=== PATIENT | male | born 1980 | race Two or more races ===

== ENCOUNTER 2024-10-03 01:32 | Inpatient (IN) | payer OTHER, MEDICAID, SELFPAY ==
[2024-10-03] VITALS (23 sets, daily range): BP systolic 90–236; BP diastolic 34–108; PULSE 90–140; RESP 12–90; TEMP 36.2–41.2; O2SAT 92–97; BMI 73.8
--- NOTE | 2024-10-03 01:56 | XR_ITS ---
Examination: AP chest single view Technique one AP portable upright chest single view Exam date and time: October 03, 2024 0223 hours INDICATIONS: Weakness chills today. FINDINGS: Mild enlargement cardiac contour Moderate vascular congestion. No lobar pneumonia Prominent osteopenia IMPRESSION: Moderate vascular congestion
--- NOTE | 2024-10-03 02:00 | PC.NURSE ---
PT BIB EMS WITH C/O SUDDEN ONSET CHILLS, AND DIZZINESS, AND COLD SWEATS. PT STATES HE HAD SIMILAR SYMPTOMS OCCUR APPROX 5 DAYS AGO BUT THEY WENT AWAY. PT STATES TODAY WHILE WORKING SYMPTOMS RETURNED. PT PRESENTS TO ER SHIVERING STATING I FEEL COLD , PT DENIES ANY RECENT SICKNESS, COUGH OR FLU LIKE SYMPTOMS. PT DENIES ANY ABD PAIN OR CHEST PAIN. PT PRESENTS LABORED BREATHING AND SOB,, BUT STATES THAT IS NORMAL FOR HIM DUE TO HIS WEIGHT AND HAVING DIFFICULTIES GETTING AROUND. PT PRESENTS HYPERTENSIVE, BP 200'S SYSTOLIC. PT STATS HE HAS HX OF HTN AND TAKE METOPROLOL 100 PO DAILY AND STATES HE IN COMPLAINT WITH MEDS. MD MAYNARD MADE AWARE OF PT'S BP. PT PLACED ON CORRESPONDENCE REVIEW CLERK, EKG ORDERED. IV'S STARTED. PT GIVEN CALL LIGHT WITHIN REACH. BED AT LOWEST POSITION. PLAN OF CARE ONGOING.
[2024-10-03 02:10] LABS: Basophils % (Auto) 0 % (0-2.5); Eosinophils # (Auto) 0.1 Thou/mm3 (0.0-0.5); Eosinophils % (Auto) 1 % (0-10); Hemoglobin 12.4 g/dL (13.5-16.0); Immature Granulocytes % (Auto) 1 % (0-0); Immature Granulocytes Auto 0.14 Thou/mm3 (0.00-0.00); Lymphocytes # (Auto) 1.4 Thou/mm3 (1.0-4.8); Lymphocytes % (Auto) 7 % (10-50); Mean Corpuscular HGB Conc 32.6 g/dl (31.0-37.0); Mean Corpuscular Hemoglobin 31.7 pg (25.0-35.0); Mean Corpuscular Volume 97 fL (80-100); Monocytes # (Auto) 0.3 Thou/mm3 (0.0-0.8); Monocytes % (Auto) 1 % (0-12); Neutrophils # (Auto) 17.5 Thou/mm3 (1.8-7.7); Neutrophils % (Auto) 90 % (37-80); Nucleated Red Blood Cell % 0 /100 WBC (0); Platelet Count 283 Thou/mm3 (140-440); Red Blood Count 3.91 Miln/mm3 (4.50-5.90); White Blood Count 19.4 Thou/mm3 (3.8-10.6)
--- NOTE | 2024-10-03 02:15 | PD.EDWEAK ---
ED Weakness RME/HPI General Chief complaint: Weakness Stated complaint: WEAKNESS Time Seen by Provider: 10/03/24 01:42 Arrival date/time: 10/03/24 01:32 RME / HPI RME / HPI Narrative: Dr. Serna's Main ED Evaluation: 44yo male with a history of HTN BIBA from home presents to the ED for a chief complaint of chills. Patient states he had chills, generalized body aches, and 5-6 episodes of diarrhea on Wednesday, reporting his symptoms resolved. Patient states his chills returned tonight and were significant, so he came in for evaluation. Patient denies any fever, N/V/D, chest pain, abdominal pain or any other associated symptoms. No known allergies. Related Data Home Medications ?Medication ?Instructions ?Recorded ?Confirmed furosemide 40 mg tablet 40 mg PO QDAY 10/08/19 11/28/19 lisinopril 20 1 mg PO QDAY 10/08/19 11/28/19 mg-hydrochlorothiazide 25 mg tablet Previous Rx's ?Medication ?Instructions ?Recorded cephalexin 500 mg capsule 500 mg PO QID #40 caps 04/11/24 Allergies Allergy/AdvReac Type Severity Reaction Status Date / Time No Known Allergies Allergy Verified 04/11/24 00:55 Review of Systems Review of Systems Systems Reviewed: All systems reviewed, normal except as documented Past Medical History Past Medical History CARDIAC: Positive Hypertension; Negative Congestive Heart Failure RESPIRATORY: Negative Chronic Obstructive Pulmonary Disease (COPD) GASTROINTESTINAL: Positive Obesity GENITOURINARY: Negative Renal Disease ENDOCRINE: Negative Diabetes Mellitus Type 1 or Diabetes Mellitus Type 2 Social History SMOKING STATUS: Never smoker SUBSTANCE USE: marijuana ED Exam Narrative Physical exam: General: Non-toxic, well appearing, obese, in no acute distress, and appears stated age and well developed and well nourished. Vital signs: Normal. Head: Normocephalic and atraumatic. Eyes: Aproptotic, extraocular movements intact. Nose: Nares without evidence of rhinorrhea. Neck: Supple without menigismus without lympadenopathy. Heart: Tachycardic, regular rhythm without murmur, gallops, or rubs. Lungs: Clear to auscultation without wheezing, rales, or rhonchi. Abdomen: Soft, large, non distended. No tenderness. Normal bowel sounds. Negative Cool sign and no McBurney?s point tenderness. No guarding, rebound, or rovsing. Back: No costovertebral angle tenderness. Gu: Scrotum has no erythema, no crepitus, and is not red to touch. Neurological: Alert and oriented to person, place, time. Extremities: no cyanosis or edema; wearing compression socks, but patient denies any skin changes Skin: no rashes, ecchymosis, or lesions. Erythema under the pannus that is nontender, no fluctuance, no deep tenderness to palpation. Redness to right anterior trejo. Bilateral lower extremity vascular changes. Course Course Course Narrative: CXR is ordered for determining the etiology of chills. Quality Measures Possible source: pulmonary and skin/soft tissue Blood cultures ordered: yes Antibiotic ordered: Yes Pertinent labs: 10/03/24 10/03/24 02:02 03:34 Lactic Acid 3.4 H mMol/L (0.4-2.0) Procalcitonin 0.07 ng/ml (0.0-0.49) sepsis Orders Category Date Time Status COVID-19 Screening Questionnaire NOW Care 10/03/24 04:54 Active Decision to Admit X1 Care 10/03/24 04:54 Completed EKG (ED ONLY) *Do not use* NOW Care 10/03/24 01:49 Completed CXRP [XR chest 1V portable] Stat Exams 10/03/24 01:56 Taken EKG (ED Only) Stat Exams 10/03/24 01:49 Ordered BNP [B-Type Natriuretic Peptide] Stat Lab 10/03/24 02:02 Completed Blood Culture (Lab) Stat Lab 10/03/24 03:34 Received CBC Stat Lab 10/03/24 02:02 Completed CMP [Comprehensive Metabolic Panel] Stat Lab 10/03/24 02:02 Completed LA [Lactate (Lactic Acid)] Stat Lab 10/03/24 03:34 Results Procalcitonin Stat Lab 10/03/24 02:02 Completed Troponin I Stat Lab 10/03/24 02:02 Completed Urinalysis Stat Lab 10/03/24 02:40 Completed Acetaminophen Ivpb [Ofirmev Inj] Med 10/03/24 03:39 Active 1,000 mg in 100 ml IV Q6HR Ketorolac Inj [Toradol Inj] Med 10/03/24 03:41 Discontinued 30 mg IVP X1 ONE Sodium Chloride 0.9% 500 ml [Ns] 500 ml Med 10/03/24 03:50 Discontinued IV 999 mls/hr cefTRIAXone [Rocephin] 2 gm Med 10/03/24 03:46 Discontinued SODIUM CHLORIDE 0.9% (Popper) [Ns 0.9% (P)] 50 ml IV X1 Vital Signs Vital signs: Vital Signs Temperature 98.7 F 10/03/24 01:45 Pulse Rate 101 H 10/03/24 01:45 Respiratory Rate 18 10/03/24 01:45 Blood Pressure 236/78 H 10/03/24 01:45 Pulse Oximetry (%) 96 10/03/24 01:45 Oxygen Delivery Method Room Air 10/03/24 01:45 Weakness MDM Narrative MDM Narrative:: Scribe Attestation: 10/03/24 - Fabiana Shah am scribing for and in the presence of Dr. Serna. 0316: Sepsis alert initiated due to the patient having a rectal temperature of 106.1. Orders made at this time are congruent with ED Adult Sepsis Order List. Re-evaluation is to be completed. Tylenol IV and Toradol ordered. 30mL/kg IVF not ordered due to the patient being on Lasix. This patient would be a very difficult intubation. Will titrate fluids to ensure the patient does not go into CHF to prevent him from being intubated. Rocephin ordered. 0449: Discussed case with the resident physician, attending Dr. Lance from Hospitalist service regarding admission. Discussed patients ED course, exam findings, labs, and radiology results. The Hospitalist agrees to accept the patient for admission. Patient data External records reviewed:: [facility] previous records (Per chart review, patient was seen here on 04/11/24 for bacterial skin infection.) Clinical information provided by:: patient Social determinants that could affect healthcare access:: none Patient has the following chronic illnesses:: HTN How is presenting disease/condition affected by chronic disease/condition?: uneffected by Evaluation data The following diagnostics were reviewed and interpreted by me:: lab results, radiology exam(s) and EKG tracing(s) Lab and/or radiology exams considered but not ordered:: none Interpretation Summary: Bedside Influenza and COVID are negative, WBC count is elevated at 19.4, BUN is 26, Lactic Acid is elevated at 3.4, Troponin is negative, BNP is normal, according to my interpretation. CXR shows right middle lobe infiltrate, mild cardiomegaly, increased vascular markings, cannot r/o right lower lobe infiltrate, impression: right middle lobe pneumonia, according to my interpretation. EKG done at 0151, sinus tachycardia, rate of 103, 1st degree AV block, poor baseline, QTc: 363, according to my interpretation. Medications / Prescriptions Medications or Prescriptions considered but not ordered:: none Medication administrations:: Medication Administration History Acetaminophen (Ofirmev Inj) 1,000 mg in 100 mls @ 250 mls/hr IV Q6HR RAD Stop: 10/03/24 18:23 Last Infusion: 10/03/24 04:46 Dose: Infused Documented By: Admin: 10/03/24 04:09 Dose: 250 mls/hr Documented By: LUISA Discontinued Medications Ceftriaxone Sodium 2 gm/ (Sodium Chloride) 50 mls @ 100 mls/hr IV X1 ONE Stop: 10/03/24 04:15 Last Infusion: 10/03/24 04:47 Dose: Infused Documented By: Admin: 10/03/24 04:10 Dose: 100 mls/hr Documented By: LUISA Sodium Chloride (Ns) 500 mls @ 999 mls/hr IV .Q31M ONE Stop: 10/03/24 04:20 Last Infusion: 10/03/24 05:10 Dose: Infused Documented By: Admin: 10/03/24 04:17 Dose: 999 mls/hr Documented By: LUISA Ketorolac Tromethamine (Ketorolac Inj 30 Mg/Ml Vial) 30 mg IVP X1 ONE Stop: 10/03/24 03:42 Last Admin: 10/03/24 04:10 Dose: 30 mg Documented By: LUISA see above Consultations Consultation(s) initiated? (list below): Yes Diagnosis Weakness Differential Diagnosis: sepsis and other (pneumonia, cellulitis, abdominal wall cellulitis, extremity cellulitis, UTI, bacteremia) Most likely diagnosis given after review of the tests above:: see clinical impression below Admission Indicated Admission indicated?: indicated Admission Request Was there a request for admission?: Yes Admission Attestation Admission request attestation: Discussed case with [] from Hospitalist service regarding admission. Discussed patients ED course, exam findings, labs, and radiology results. The Hospitalist [agrees,declines] to accept the patient for admission. Disposition Plan Disposition Plan: Admit Critical Care Time Critical Care Time Critical Care Time: Yes Total Critical Care Time (min.): 45 Attestation: The high probability of sudden, clinically significant deterioration in the patient?s condition required the highest level of my preparedness to intervene urgently. The services I provided to this patient were to treat and/or prevent clinically significant deterioration. Services included the following: chart data review, reviewing nursing notes and/or old charts, documentation time, labor relations consultant collaboration regarding findings and treatment options, medication orders and management, direct patient care, vital sign assessments and ordering, interpreting and reviewing diagnostic studies and lab tests. Aggregate critical care time includes only time during which I was engaged in work directly related to the patient?s care, as described above, whether at bedside or elsewhere in the Emergency Department. It did not include time spent performing other reported procedures or the services of residents, students, nurses or physician assistants. Discharge Plan Plan Patient Disposition: Admit Acute Care w/in Hospital Disposition Comment: Admitted to Dr. Lance Patient condition on transfer: Stable Prescriptions/Referrals Prescriptions/Med Rec: No Action furosemide 40 mg tablet 40 mg PO QDAY lisinopril-hydrochlorothiazide 20-25 mg tablet 1 mg PO QDAY cephalexin 500 mg capsule 500 mg PO QID Qty: 40 0RF Referrals: Júnior Hudson PA-C [Primary Care Provider] - In 1 week Problem List Clinical Impression: Sepsis, Cellulitis, Community acquired pneumonia Patient/Caregiver Discharge Instructions Print Language: Macedonian Stand Alone Forms: Sarai Award Info., Patient Portal Info Letter
[2024-10-03 02:30] LABS: Alanine Aminotransferase 39 U/L (10-49); Albumin, Serum 4.3 gm/dL (3.5-5.0); Albumin/Globulin Ratio 1.2 (1.2-2.2); Alkaline Phosphatase 70 U/L (46-116); Anion Gap 6 (7-16); Aspartate Amino Transferase 25 U/L (0-34); BUN/Creatinine Ratio 22 Ratio (12-20); Bilirubin,Total 0.5 mg/dL (0.3-1.2); Blood Urea Nitrogen 26 mg/dL (9-23); Calcium 9.6 mg/dL (8.3-10.6); Calcium (Corrected) 9.6 mg/dL (8.5-10.1); Chloride 104 mMol/L (98-107); Creatinine (Component) 1.2 mg/dL (0.6-1.3); Estimated Creatinine Clearance 168.9 mL/min (>60); Globulin 3.6 gm/dL (2.3-3.5); Glucose 106 mg/dL (74-106); Osmolality,Calculated 284 (275-295); Potassium 4.7 mMol/L (3.4-5.1); Sodium 140 mMol/L (136-145); Total Protein 7.9 gm/dL (5.7-8.2); eGFR > 60 See Note
[2024-10-03 02:49] LABS: Collection Type, Urine Voided
[2024-10-03 03:03] LABS: Bilirubin,Urine Negative (Negative); Blood,Urine Negative (Negative); Clarity,Urine Clear (Clear/Hazy); Color,Urine Yellow (Lt Yel-Yel); Glucose, Urine Negative (Negative); Ketones,Urine Negative (Negative); Leukocyte Esterase,Urine Negative (Negative); Nitrite,Urine Negative (Negative); Protein,Urine Trace (Neg - Trace); RBC,Urine 4 /hpf (0-3); Specific Gravity,Urine 1.023 (1.001-1.035); Squamous Epithelial Cell,Urine < 1 /hpf (0-5); WBC,Urine 1 /hpf (0-5)
[2024-10-03 03:22] LABS: Sperm,Urine Present
--- NOTE | 2024-10-03 03:30 | PC.NURSE ---
COOLING MEASURES APPLIED.
[2024-10-03 03:57] LABS: Lactate (Lactic Acid) 3.4 mMol/L (0.4-2.0)
--- NOTE | 2024-10-03 04:00 | PC.NURSE ---
ASSISTED PT TO SIDE OF BED, HE STATED HE WAS VERY UNCOMFORTABLE IN [facility]. INFORMED PT WE WOULD REQ A BARIATRIC BED IF AVAILABLE.
[2024-10-03] MEDS: ACETAMINOPHEN IVPB 1,000 MG/100 ML VIAL 250 MG IV ×3 (04:09→18:18)
[2024-10-03] MEDS: KETOROLAC INJ 30 MG/ML VIAL IVP (04:10)
[2024-10-03] MEDS: cefTRIAXone 2 GM in SODIUM CHLORIDE 0.9% (Popper) 50 ML IV (04:10)
[2024-10-03] MEDS: SODIUM CHLORIDE 0.9% 500 ML 500 ML 999 ML IV ×2 (04:17→07:36)
[2024-10-03 04:26] LABS: B-Type Natriuretic Peptide 41 pg/mL (0-100)
[2024-10-03 04:30] LABS: Procalcitonin 0.07 ng/ml (0.0-0.49); Troponin I < 0.020 ng/mL (0.0-0.045)
--- NOTE | 2024-10-03 05:22 | PC.NURSE ---
DR CRAWFORD AND RESIDENT AT BEDSIDE ASSESSING PT AT THIS TIME.
--- NOTE | 2024-10-03 05:35 | XR_ITS ---
Examination: Abdomen sonogram, Limited Date and time of exam: October 03, 2024 0607 hours INDICATIONS: Fever chills beginning 1:00 AM this morning Technique: Real-time voss scale transabdominal sonographic images of the upper abdomen obtained. Findings: No diagnostic visualization gallbladder The common bile duct is normal 0.5 cm Pancreas obscured by bowel gas Hepatomegaly 22.1 cm fatty infiltration lobular contour Normal hepatopedal portal venous flow Patent IVC IMPRESSION: Limited study secondary to the patient's size No diagnostic visualization gallbladder Normal common bile duct Moderate hepatomegaly primary hepatocellular disease fatty infiltration
--- NOTE | 2024-10-03 05:39 | PD.RESHP ---
Documentation for date of: 10/03/24 [facility] History of Present Illness Chief complaint: shortness of breath History of present illness: The patient is a 44-year-old male with a previous medical history of hypertension and morbid obesity who was brought in by ambulance due to fever, chills and shortness of breath. He reports that this started a few days ago. He also reports that earlier in the week he had an episode of similar fever, chills, headache with diarrhea which lasted for 4 days. He denies cough, chest pain, abdominal pain, pain in the extremities, having sores or traumas. ED course: Blood pressure 112/65, heart rate 126, respiratory rate 24, saturating 94 on room air. Labs showed leukocytosis 19.4, hemoglobin 12.4, platelets 283. INR 1.1, sodium 140, potassium 4.7, chloride 104, BUN 26, creatinine 1.2, EGFR more than 60, lactic acid 3.4, glucose 106, troponin I less than 0.02. UA was negative for signs of UTI. Chest x-ray is pending official read, visualization suboptimal, suspicious for pneumonia, enlarged cardiac silhouette. Bedside COVID and flu tests are negative. Patient reports he was recently approved for bariatric surgery. In the ED he received acetaminophen 1 g IV, ketorolac 30 mg x 1, ceftriaxone 2 g x 1, 500 mL of fluids. 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 Surgical history: Venous ablation procedures bilaterally. Medications: Metoprolol and spironolactone Allergies: Denies Patient is going to be admitted for sepsis secondary to community-acquired pneumonia treatment and management. Review of Systems Review of Systems Systems Reviewed: All systems reviewed, normal except as documented Past Medical History Past Medical History CARDIAC: Positive Hypertension; Negative Congestive Heart Failure RESPIRATORY: Negative Chronic Obstructive Pulmonary Disease (COPD) GASTROINTESTINAL: Positive Obesity GENITOURINARY: Negative Renal Disease ENDOCRINE: Negative Diabetes Mellitus Type 1 or Diabetes Mellitus Type 2 Social History SMOKING STATUS: Never smoker SUBSTANCE USE: marijuana Exam Vital Signs Temp Pulse Resp BP Pulse Ox O2 Del Method 105.3 F H 126 H 15 112/65 94 L Room Air 10/03/24 05:02 10/03/24 05:05 10/03/24 05:05 10/03/24 05:02 10/03/24 05:05 10/03/24 05:02 Narrative Exam Physical Exam General: Awake and in respiratory distress. Sitting on the gurney. Morbidly obese. HEENT: Normocephalic, atraumatic, mucous membranes moist. Heart: Regular rate and rhythm, no murmurs. Lungs: Clear to auscultation with no wheezing or crackles. Abdomen: Soft, nondistended, RUQ tenderness, Cool sign is positive, positive bowel sounds. ?No guarding or rebound tenderness. Neurologic: Alert and oriented x3, no gross neurological deficit, and patient able to move all 4 extremities. Extremities: Areas of lymphedema on the lower abdomen and lower extremities. Skin: Bilateral chronic venous changes. Results: Labs 10/03/24 02:02 10/03/24 09:06 Labs: Short CBC 10/03/24 Range/Units 02:02 WBC 19.4 H (3.8-10.6) Thou/mm3 Hgb 12.4 L (13.5-16.0) g/dL Hct 38.0 L (41.0-53.0) % Plt Count 283 (140-440) Thou/mm3 BMP 10/03/24 02:02 Sodium 140 Potassium 4.7 Chloride 104 Carbon Dioxide 30.0 BUN 26 H Creatinine 1.2 Glucose 106 Calcium 9.6 Cardiac Enzymes 10/03/24 Range/Units 02:02 Troponin I < 0.020 (0.0-0.045) ng/mL Liver Function 10/03/24 Range/Units 02:02 Total Bilirubin 0.5 (0.3-1.2) mg/dL AST 25 (0-34) U/L ALT 39 (10-49) U/L Alkaline Phosphatase 70 (46-116) U/L Albumin 4.3 (3.5-5.0) gm/dL Urine 10/03/24 Range/Units 02:40 Urine Color Yellow (Lt Yel-Yel) Urine Clarity Clear (Clear/Hazy) Urine pH 7.0 (5.0-7.0) Ur Specific [place] 1.023 (1.001-1.035) Urine Protein Trace (Neg - Trace) Urine Glucose (UA) Negative (Negative) Quality Measures Quality Measures sepsis Current suspected stage: sepsis Possible source: pulmonary Blood cultures ordered: yes Antibiotic ordered: Yes Medications Home Medications and Allergies Home Medications ?Medication ?Instructions ?Recorded ?Confirmed ?Type furosemide 40 mg tablet 40 mg PO QDAY 10/08/19 10/03/24 History lisinopril 20 1 mg PO QDAY 10/08/19 10/03/24 History mg-hydrochlorothiazide 25 mg tablet acetaminophen 500 mg tablet 500 mg PO BID pain 10/03/24 10/03/24 History diclofenac potassium 50 mg tablet 50 mg PO BID PRN pain 10/03/24 10/03/24 History metoprolol succinate 100 mg 100 mg PO DAILY 10/03/24 10/03/24 History tablet,extended release 24 hr Allergies Allergy/AdvReac Type Severity Reaction Status Date / Time No Known Allergies Allergy Verified 04/11/24 00:55 Visit Medications Acetaminophen (Acetaminophen 325 Mg Tablet) 650 mg PO Q6H PRN PRN Reason: Fever >100.3 or pain 1-3 Stop: 11/02/24 05:30 Enoxaparin Sodium (Enoxaparin Sod Inj 40 Mg/0.4 Ml Syringe) 40 mg SC QDAY RAD Stop: 10/17/24 08:59 Acetaminophen (Ofirmev Inj) 1,000 mg in 100 mls @ 250 mls/hr IV Q6HR RAD Stop: 10/03/24 18:23 Last Infusion: 10/03/24 04:46 Dose: Infused Ceftriaxone Sodium/Dextrose (Rocephin/D5w 1gm Iv Premix) 1 gm in 50 mls @ 100 mls/hr IV QDAY RAD Stop: 10/10/24 15:59 Azithromycin 500 mg/ Sodium (Chloride) 250 mls @ 250 mls/hr IV QDAY RAD Stop: 10/10/24 05:35 Azithromycin 500 mg/ Sodium (Chloride) 250 mls @ 250 mls/hr IV X1 ONE Stop: 10/03/24 06:44 Ondansetron HCl (Ondansetron Inj 2 Mg/Ml Inj 2 Ml) 4 mg IV Q6H PRN; Protocol PRN Reason: NAUSEA OR VOMITING Stop: 11/02/24 05:30 Oxycodone/Acetaminophen (Oxycodone/Apap 5/325 Tablet) 1 tab PO Q6H PRN PRN Reason: PAIN SCALE 4-6 (Moderate Stop: 10/08/24 05:30 Sennosides (Senna Tablet) 1 tab PO QDAY PRN; Protocol PRN Reason: constipation Stop: 11/02/24 05:30 Discontinued Medications Ceftriaxone Sodium 2 gm/ (Sodium Chloride) 50 mls @ 100 mls/hr IV X1 ONE Stop: 10/03/24 04:15 Last Infusion: 10/03/24 04:47 Dose: Infused Sodium Chloride (Ns) 500 mls @ 999 mls/hr IV .Q31M ONE Stop: 10/03/24 04:20 Last Infusion: 10/03/24 05:10 Dose: Infused Ketorolac Tromethamine (Ketorolac Inj 30 Mg/Ml Vial) 30 mg IVP X1 ONE Stop: 10/03/24 03:42 Last Admin: 10/03/24 04:10 Dose: 30 mg Sodium Chloride (Sodium Chloride Rt 10% 15 Ml Nebu) 5 ml INH X1 ONE Stop: 10/03/24 05:32 Assessment & Plan Plan The patient is a 44-year-old male with a previous medical history of hypertension and morbid obesity who was brought in by ambulance due to fever, chills and shortness of breath. He reports that this started a few days ago. Patient is going to be admitted for sepsis secondary to community-acquired pneumonia treatment and management. #Sepsis secondary to #Community-acquired pneumonia Patient reports fever, chills, shortness of breath. In the ED he had a fever 105.3, tachypneic, labs showed leukocytosis. Imaging is suspicious for pneumonia. Patient received 500 ml fluids in the ED Plan: ?Ceftriaxone 1 g daily ? Azithromycin 100 mg daily ? Blood cultures ordered ? Sputum cultures ordered - will hold fluids for now due to concern for fluid overload - repeat CXR #Hypertension Patient reports taking metoprolol at home. Initial blood pressure reading was 236/78, but it was taken right after he moved to the [facility], after that blood pressure was normal. Patient reports that it is easier for him to breathe when he sits up. Plan: ? Will hold blood pressure medication due to normal blood pressure ? Echo ordered #Morbid obesity #Possible FAN Patient reports that he has been approved for bariatric surgery. Chart review shows that he has a prescription for the Ozempic. Patient reports that he's snoring and night. He did not have sleep study before. Plan: - CPAP HS PRN ? Consider switching to tirzepatide outpatient #RUQ tenderness Patient denies nausea, vomiting. On examination RUQ tenderness. Cool sign negative. AST, ALT normal, Tbili 0.5. Plan: - US of the liver #Chronic venous insufficiency Patient has bilateral non-pitting non-painful edema with induration and dry skin. Stable. #CKD Creatinine 1.2, in 202 was 0.8. Most likely in the setting of HTN Plan: - monitor daily CMP - avoid nephrotoxic agents Health maintenance: FEN: cardiac DVT prophylaxis: lovenox 40 mg sc GI prophylaxis: none Dispo: telemetry CODE STATUS: Full code Plan of care discussed with attending Dr. Lance. Carrol Cronin MD, PGY 1. Attending Provider Attestation/Addendum I attest that I was physically present for the evaluation, physical examination, lab and imaging review of the patient with the residents. I discussed the case with the residents and agree with the findings and plans of care as documented above. Patient is a 44 years old male with past medical history of hypertension and morbid obesity who presented to the ED with complaint of fever, chills, and shortness of breath. His symptoms started few days ago. He had similar episodes about a week ago which lasted for 4 days and resolved. He started having the symptoms again and decided to visit the ED. In the ED, he was tachycardic, tachypneic but saturating well on room air. Lab results show WBC of 19.4, BUN/creatinine of 26/1.2, lactic acid 3.4. Chest x-ray suspicious for pneumonia. We will admit the patient for management of sepsis secondary to community-acquired pneumonia. Will start him on IV Rocephin and azithromycin. We will hold off on IV hydration due to concern for fluid overload. We will obtain culture results and repeat chest x-ray. Patient is also complaining of right upper quadrant tenderness, we will obtain liver ultrasound. Kaia Lance MD
[2024-10-03] MEDS: AZITHROMYCIN INJ 500 MG in SODIUM CHLORIDE 0.9% 250 ML 250 ML 250 MG IV (06:14)
[2024-10-03 06:20] LABS: Lactate (Lactic Acid) 2.5 mMol/L (0.4-2.0)
--- NOTE | 2024-10-03 06:23 | PC.LAC ---
Addendum entered by Kalya Fernando 10/03/24 06:28: 0628, kailash from [facility] called and stated there's no bariatric bed available. Original Note: 0617, spoke to [facility] at this time, stated they would check the basement to see if bariatric bed was there and/ or available and they would give us a call back.
[2024-10-03 06:47] LABS: Reflex Lactate? Y
[2024-10-03 07:01] LABS: Alanine Aminotransferase 34 U/L (10-49); Albumin, Serum 3.7 gm/dL (3.5-5.0); Albumin/Globulin Ratio 1.2 (1.2-2.2); Alkaline Phosphatase 42 U/L (46-116); Anion Gap 10 (7-16); Aspartate Amino Transferase 21 U/L (0-34); BUN/Creatinine Ratio 18 Ratio (12-20); Bilirubin,Total 0.7 mg/dL (0.3-1.2); Blood Urea Nitrogen 27 mg/dL (9-23); Calcium 8.9 mg/dL (8.3-10.6); Calcium (Corrected) 9.1 mg/dL (8.5-10.1); Carbon Dioxide 23.9 mMol/L (20.0-31.0); Chloride 101 mMol/L (98-107); Creatinine (Component) 1.5 mg/dL (0.6-1.3); Estimated Creatinine Clearance 135.2 mL/min (>60); Glucose 103 mg/dL (74-106); Osmolality,Calculated 275 (275-295); Potassium 3.8 mMol/L (3.4-5.1); Sodium 135 mMol/L (136-145); Thyroid Stimulating Hormone 0.88 uIU/mL (0.55-4.78); Total Protein 6.7 gm/dL (5.7-8.2); eGFR 58 See Note
--- NOTE | 2024-10-03 07:15 | PC.NURSE ---
DR BROOKS INFORMED OF PT'S BP 92/37'S WITH A MAP IN THE 50'S, PER DR BROOKS TELEPHONE ORDER GIVEN TO [facility]US 500ML NORMAL SALINE.
[2024-10-03 07:33] LABS: Phosphorous 0.7 mg/dL (2.4-5.1)
--- NOTE | 2024-10-03 08:09 | PC.NURSE ---
COOLING BLANKET STOPPED AT THIS TIME.
[2024-10-03] MEDS: Magnesium Sulfate 4 GM Ivpb 4 GM/50 ML BAG IV (09:00)
[2024-10-03] MEDS: NAPH,KPH MBDB 1 PACKET (1.5 GM) PO ×2 (09:00→21:06)
[2024-10-03] MEDS: ENOXAPARIN SOD INJ 40 MG/0.4 ML SYRINGE SC (09:01)
[2024-10-03] MEDS: SOD PHOS ADDITIVE 30 MMOL in SODIUM CHLORIDE 0.9% 500 ML 500 ML 62.5 MMOL IV (09:11)
[2024-10-03 09:13] LABS: Lactic Acid, 3 HR 3.4 mMol/L (0.4-2.0)
[2024-10-03 09:19] LABS: Reflex Lactate? Y
--- NOTE | 2024-10-03 09:33 | XR_ITS ---
Examination: Ultrasound right lower abdomen Limited TECHNIQUE: Limited transabdominal sonographic images of the lower abdomen Exam date and time: October 04, 1999 2523 hours INDICATIONS: Fever chills and abdomen pain today FINDINGS: No soft tissue masses depicted No free fluid in the lower abdomen IMPRESSION: No soft tissue masses noted, appendix is not demonstrated
[2024-10-03 09:41] LABS: Albumin, Serum 3.5 gm/dL (3.5-5.0); Anion Gap 9 (7-16); BUN/Creatinine Ratio 16 Ratio (12-20); Blood Urea Nitrogen 28 mg/dL (9-23); Calcium 8.7 mg/dL (8.3-10.6); Calcium (Corrected) 9.1 mg/dL (8.5-10.1); Carbon Dioxide 24.9 mMol/L (20.0-31.0); Chloride 101 mMol/L (98-107); Creatinine (Component) 1.8 mg/dL (0.6-1.3); Estimated Creatinine Clearance 112.6 mL/min (>60); Glucose 106 mg/dL (74-106); Osmolality,Calculated 275 (275-295); Phosphorous 1.2 mg/dL (2.4-5.1); Sodium 135 mMol/L (136-145); eGFR 47 See Note
[2024-10-03 13:18] LABS: Lactic Acid, 3 HR 3.9 mMol/L (0.4-2.0)
--- NOTE | 2024-10-03 13:41 | ESPR_ITS ---
<Statement entered by Yelitza Roberts MD - 10/03/24 14:29> A 44-year-old male with a past medical history of hypertension and morbid obesity, currently on Ozempic, presented with fever, chills, and shortness of breath. On presentation, the patient was febrile and found to have leukocytosis. Chest X-ray was consistent with pneumonia. The patient was admitted for sepsis secondary to pneumonia. No acute events overnight. Repeat labs showed improving leukocytosis with WBC trending down to 19.4. Patient is not a candidate for CT imaging due to BMI; therefore, CT chest/abdomen/pelvis was not performed. In the morning, the patient had a low-grade fever (Tmax 100.8?F); acetaminophen was administered. Sepsis is suspected to be secondary to the pneumonia. The patient is being treated with ceftriaxone and azithromycin. Blood and sputum cultures are pending. History of hypertension noted; however, patient?s current blood pressure is soft. Antihypertensive medications are on hold. An echocardiogram has been ordered. Lactic acidosis noted , likely secondary to infection-related hypoperfusion. However, the patient is hemodynamically stable, not in shock, and maintaining a MAP >65 mmHg. IV fluids were administered; current BMP is within normal limits. Plan: Continue ceftriaxone and azithromycin. Monitor culture results and adjust antibiotics as needed. Follow up with echocardiogram. Continue to closely monitor vitals, hemodynamic status, and lab trends. Hold antihypertensives until blood pressure stabilizes. Initiate and continue physical therapy during hospitalization to promote mobility. Documentation for date of: 10/03/24 Subjective Subjective Interval history: No overnight events. Patient seen examined at bedside, resting comfortably. Patient reports overall significant proved in subjective symptoms, denies fever, chest pain, nausea, vomiting. Endorses shortness of breath at baseline, not increased at this time. CT abdomen pelvis pending. BiPAP while sleeping, physical therapy consulted. Exam Vital Signs Temp Pulse Resp BP Pulse Ox O2 Del Method 97.1 F 93 21 H 92/46 L 95 Room Air 10/03/24 08:52 10/03/24 12:00 10/03/24 08:52 10/03/24 08:52 10/03/24 08:52 10/03/24 08:52 Narrative Exam PE: Gen: Well-developed and well-nourished. Morbidly obese. HEENT: NCAT, PERRLA, EOMI, MMM, anicteric conjunctivae. CVS: normal S1 and S2. RRR. No M/R/G. Resp: No rhonchi, rales, crackles or wheezing. Poor lung sounds due to body habitus. Abd: Pannus is edematous, indurated. Right lower quadrant tenderness. MSK: Good ROM in BUE & BLE. Significant nonpitting lymphedema bilateral lower extremities with stasis dermatitis. Neuro: CN II-XII grossly intact. Strength 5/5 in BUE & BLE. Alert and oriented x3. Psych: appropriate mood and affect. Objective Labs 10/03/24 02:02 10/03/24 09:06 Labs: Laboratory Results - last 24 hr 10/03/24 10/03/24 10/03/24 02:02 02:40 03:34 WBC 19.4 H RBC 3.91 L Hgb 12.4 L Hct 38.0 L MCV 97 MCH 31.7 MCHC 32.6 RDW Std Deviation 46.0 H Plt Count 283 Neut % (Auto) 90 H Lymph % (Auto) 7 L [place] % (Auto) 1 Eos % (Auto) 1 Baso % (Auto) 0 Neut # (Auto) 17.5 H Lymph # (Auto) 1.4 [place] # (Auto) 0.3 Eos # (Auto) 0.1 Baso # (Auto) 0.0 Immature Gran # (Auto) 0.14 H Absolute Nucleated RBC 0.00 Immature Gran % 1 H Nucleated RBC % 0 Sodium 140 Potassium 4.7 Chloride 104 Carbon Dioxide 30.0 Anion Gap 6 L BUN 26 H Creatinine 1.2 Estim Creat Clear Calc 168.9 eGFR > 60 BUN/Creatinine Ratio 22 H Glucose 106 Calculated Osmolality 284 Lactic Acid 3.4 H Calcium 9.6 Corrected Calcium 9.6 Phosphorus Magnesium Total Bilirubin 0.5 AST 25 ALT 39 Alkaline Phosphatase 70 Troponin I < 0.020 B-Natriuretic Peptide 41 Total Protein 7.9 Albumin 4.3 Globulin 3.6 H Albumin/Globulin Ratio 1.2 Procalcitonin 0.07 TSH Ur Collection Type Voided Urine Color Yellow Urine Clarity Clear Urine pH 7.0 Ur Specific [place] 1.023 Urine Protein Trace Urine Glucose (UA) Negative Urine Ketones Negative Urine Blood Negative Urine Nitrite Negative Urine Bilirubin Negative Urine Urobilinogen (Auto) 2.0 Ur Leukocyte Esterase Negative Urine RBC 4 H Urine WBC 1 Ur Squamous Epith Cells < 1 Urine Bacteria None Urine Sperm Present A 10/03/24 10/03/24 10/03/24 06:06 09:06 12:55 WBC RBC Hgb Hct MCV MCH MCHC RDW Std Deviation Plt Count Neut % (Auto) Lymph % (Auto) [place] % (Auto) Eos % (Auto) Baso % (Auto) Neut # (Auto) Lymph # (Auto) [place] # (Auto) Eos # (Auto) Baso # (Auto) Immature Gran # (Auto) Absolute Nucleated RBC Immature Gran % Nucleated RBC % Sodium 135 L 135 L Potassium 3.8 D 4.0 Chloride 101 101 Carbon Dioxide 23.9 24.9 Anion Gap 10 9 BUN 27 H 28 H Creatinine 1.5 H 1.8 H Estim Creat Clear Calc 135.2 112.6 eGFR 58 L 47 L BUN/Creatinine Ratio 18 16 Glucose 103 106 Calculated Osmolality 275 275 Lactic Acid 2.5 H 3.4 H 3.9 H Calcium 8.9 8.7 Corrected Calcium 9.1 9.1 Phosphorus 0.7 L* 1.2 L Magnesium 1.0 L Total Bilirubin 0.7 AST 21 ALT 34 Alkaline Phosphatase 42 L D Troponin I B-Natriuretic Peptide Total Protein 6.7 Albumin 3.7 D 3.5 Globulin 3.0 Albumin/Globulin Ratio 1.2 Procalcitonin TSH 0.88 Ur Collection Type Urine Color Urine Clarity Urine pH Ur Specific [place] Urine Protein Urine Glucose (UA) Urine Ketones Urine Blood Urine Nitrite Urine Bilirubin Urine Urobilinogen (Auto) Ur Leukocyte Esterase Urine RBC Urine WBC Ur Squamous Epith Cells Urine Bacteria Urine Sperm Quality Measures Quality Measures sepsis Current suspected stage: sepsis Possible source: pulmonary Blood cultures ordered: yes Antibiotic ordered: Yes Assessment & Plan Assessment Current Active Medications: Generic Name Dose Route Start Last Admin Trade Name Freq PRN Reason Stop Dose Admin Acetaminophen 650 mg 10/03/24 05:31 Acetaminophen 325 Mg Tablet PO 11/02/24 05:30 Q6H PRN Fever >100.3 or pain 1-3 Albuterol/Ipratropium 3 ml 10/03/24 05:51 Albuterol/Ipratropium (Duoneb) Rt [place] 3 Ml Nebu INH 11/02/24 05:50 Q2HR PRN SHORTNESS OF BREATH OR WHEEZE Enoxaparin Sodium 40 mg 10/03/24 09:00 10/03/24 09:01 Enoxaparin Sod Inj 40 Mg/0.4 Ml Syringe SC 10/17/24 08:59 40 mg QDAY RAD Administration Ceftriaxone Sodium/Dextrose 1 gm in 50 mls @ 100 mls/hr 10/03/24 16:00 Rocephin/D5w 1gm Iv Premix IV 10/10/24 15:59 QDAY RAD Azithromycin 500 mg/ Sodium 250 mls @ 250 mls/hr 10/04/24 09:00 Chloride IV 10/10/24 08:59 QDAY RAD Acetaminophen 1,000 mg in 100 mls @ 250 mls/hr 10/03/24 10:00 10/03/24 11:15 Ofirmev Inj IV 10/04/24 00:23 250 mls/hr Q6HR RAD Administration Sodium Phosphate 30 mmol/ 510 mls @ 62.5 mls/hr 10/03/24 08:28 10/03/24 09:11 Sodium Chloride IV 10/03/24 16:37 62.5 mls/hr X1 ONE Administration Lactated Ringer's 1,000 mls @ 999 mls/hr 10/03/24 13:40 Lactated Ringers IV 10/03/24 14:40 .Q1H1M ONE Ondansetron HCl 4 mg 10/03/24 05:31 Ondansetron Inj 2 Mg/Ml Inj 2 Ml IV 11/02/24 05:30 Q6H PRN NAUSEA OR VOMITING Protocol Oxycodone/Acetaminophen 1 tab 10/03/24 05:31 Oxycodone/Apap 5/325 Tablet PO 10/08/24 05:30 Q6H PRN PAIN SCALE 4-6 (Moderate Potassium Phos/Sodium Phos 1 packet 10/03/24 09:00 10/03/24 09:00 [place] Mbdb 1 Packet (1.5 Gm) PO 11/02/24 08:59 1 packet BID RAD Administration Sennosides 1 tab 10/03/24 05:31 Senna Tablet PO 11/02/24 05:30 QDAY PRN constipation Protocol Plan 44-year-old male with a previous medical history of hypertension and morbid obesity who was brought in by ambulance due to fever, chills and shortness of breath. He reports that this started a few days ago. Patient is going to be admitted for sepsis secondary to community-acquired pneumonia treatment and management. #Sepsis secondary to #Community-acquired pneumonia Patient reports fever, chills, shortness of breath. In the ED he had a fever 105.3, tachypneic, labs showed leukocytosis. Imaging is suspicious for pneumonia, poor study due to body habitus.. Patient received 500 ml fluids in the ED. Patient reports significant amount of sick contacts at work. Patient has right lower quadrant tenderness on exam. Liver ultrasound and soft tissue ultrasound of abdomen did not show acute pathology, unable to visualize gallbladder. Lactic acid uptrending to 3.9, patient blood pressure is borderline low, suspect blood pressure is inaccurate given patient's body habitus. - Ceftriaxone 1 g daily - Azithromycin 100 mg daily - Blood cultures ordered - Sputum cultures ordered - CT abdomen/pelvis with contrast - Lactated ringer bolus x 1 L - Trend lactate #MARCO Creatinine 1.2, in 2021 was 0.8. Patient also has elevated lactic acidosis, suspect prerenal MARCO due to dehydration. - monitor daily CMP - avoid nephrotoxic agents - LR bolus as above #Hypertension Patient reports taking metoprolol at home. Initial blood pressure reading was 236/78, but it was taken right after he moved to the [facility], after that blood pressure was normal. Patient reports that it is easier for him to breathe when he sits up. ? Will hold blood pressure medication due to low?normal blood pressure ? Echo ordered #Morbid obesity #Possible FAN Patient reports that he has been approved for bariatric surgery. Chart review shows that he has a prescription for the Ozempic. Patient reports that he's snoring and night. He did not have sleep study before. - CPAP HS PRN ? Consider switching to tirzepatide outpatient #Chronic venous insufficiency Patient has bilateral non-pitting non-painful edema with induration and dry skin. Stable. FEN: cardiac DVT prophylaxis: lovenox 40 mg sc GI prophylaxis: none Dispo: telemetry CODE STATUS: Full code Plan of care discussed with senior resident Dr. Roberts PGY?[address] Stockton. Sumeet Berry MD PGY?1 Attending Provider Attestation/Addendum Tiffanie Shah, DO, attest that I was physically present for the torres portions of the service and evaluated the patient with the resident and I reviewed and discussed the case with the resident and agree with the resident's findings and plans of care as documented above Patient seen and eval this a.m. Patient has a history of hypertension and hyperlipidemia who states that about a week ago he started having some fevers and chills. Patient was at work on his break yesterday at the [employer] when he all of a sudden had fevers and chills again which prompted him to come to the ED. Patient also complains of generalized weakness. He denies any dysuria, diarrhea, shortness of breath, chest pain, cuts or breaks in the skin resulting in cellulitis. Patient is very obese and does not have any noticeable signs of cellulitis. He states that he is short of breath at baseline, likely secondary to his weight as he has a BMI of 73.8. Patient states he takes Ozempic and has lost 50 pounds. Patient is ambulatory. He denies any productive sputum or cough. However, he states that he is exposed to sick people every day since he works at the [employer] that is very busy. Patient does take a water pill at home in addition to his antihypertensives. Patient continues to have fevers. Will start with broad-spectrum antibiotics of vancomycin and Zosyn, as well as IV fluids. Patient denies any tobacco use or drug or alcohol use. Will follow-up with cultures and sensitivities of blood. UA was negative for UTI. Patient was reevaluated in the afternoon around 4 PM. Patient continued to have shaking chills and was noted to have redness in his bilateral lower extremities around his inner thighs and lower panniculus. Blood cultures also resulted in GPC resembling strep. Will continue with broad-spectrum antibiotics. No rashes were noted or breaks in the skin. Patient denied any pain. However, palpation of right upper quadrant appeared to be tender. Right upper quadrant ultrasound was limited due to patient's size. Gallbladder could not be visualized. Patient denied any post prandial pain otherwise. Will order CT chest abdomen pelvis to rule out any other obvious signs of infection. Lactic acid remains elevated. Will continue IV antibiotics and maintenance fluids.
[2024-10-03] MEDS: RINGERS LACTATED 1000 ML 1,000 ML 999 ML IV (14:27)
[2024-10-03] MEDS: cefTRIAXone/D5w 1gm IV premix 1 GM/50 ML BAG IV (16:03)
[2024-10-03] MEDS: PIPER/TAZO 3.375 GM PREMIX 3.375 GM/50 ML BAG IV ×2 (16:36→21:06)
--- NOTE | 2024-10-03 16:36 | XR_ITS ---
Examination: CT chest, without intravenous contrast. CT abdomen, without intravenous contrast. CT pelvis, without intravenous contrast. 2-D sagittal and coronal reconstructions. 3-D reconstructions. Date and time of exam:April 04, 2025 1823 hours INDICATIONS: High fever today, clinical diagnosis bacteremia CTDI vol (mgy) 26.4 DLP (MGycm)2089 Technique: Multiple CT images, 3.0 mm slice thickness, obtained chest, abdomen, pelvis, with the high-resolution 64 slice scanner.. Sagittal and coronal 2-D reconstructions are obtained. 3-D reconstructions Low dose protocols were performed. One or more of the following dose reduction techniques were used; automated exposure control, adjustment of the mA and/or KV according to patient size, use of iterative reconstruction technique. Findings: No thoracic aortic aneurysm dilatation Pulmonary artery segment in large, 40 mm No pneumonia or pulmonary edema or pleural disease Moderate hepatomegaly fatty infiltration Gallbladder detail is poor secondary to the patient's size No splenic or pancreatic mass No adrenal mass No renal or ureteral calculi, no hydronephrosis Abdominal aorta normal size No bowel obstruction 30 mm fat-containing umbilical hernia Suspicious for mild acute sigmoid diverticulitis Contracted urinary bladder IMPRESSION: The entire study is severely limited secondary to the patient's size No pneumonia or pulmonary edema Suspicious for mild acute sigmoid diverticulitis, no abdominal or pelvic abscess
[2024-10-03] MEDS: RINGERS LACTATED 1000 ML 1,000 ML 125 ML IV (16:48)
[2024-10-03] MEDS: CLINDAMYCIN 900MG IVPB 900 MG in PRE-MIXED 1 BAG 50 MG IV ×2 (16:48→21:06)
[2024-10-03] MEDS: Vancomycin Inj 2,000 MG in SODIUM CHLORIDE 0.9% 500 ML 500 ML 120 MG IV (17:27)
[2024-10-03 18:04] LABS: Lactate (Lactic Acid) 2.8 mMol/L (0.4-2.0)
--- NOTE | 2024-10-03 18:42 | PC.RT ---
sputum collected and sent to lab.
[2024-10-03] MEDS: ALBUTEROL/IPRATROPIUM (Duoneb) RT SOL 3 ML NEBU INH (19:13)
[2024-10-03 21:01] LABS: Reflex Lactate? Y
[2024-10-03 21:31] LABS: Lactic Acid, 3 HR 2.1 mMol/L (0.4-2.0)
[2024-10-04] VITALS (9 sets, daily range): BP systolic 109–148; BP diastolic 60–93; PULSE 12–123; RESP 18–94; TEMP 36.7–40.1; O2SAT 90–96
[2024-10-04] MEDS: RINGERS LACTATED 1000 ML 1,000 ML 125 ML IV ×2 (00:04→10:38)
[2024-10-04] MEDS: ACETAMINOPHEN IVPB 1,000 MG/100 ML VIAL 250 MG IV (00:05)
[2024-10-04] MEDS: PIPER/TAZO 3.375 GM PREMIX 3.375 GM/50 ML BAG IV ×3 (05:12→21:34)
[2024-10-04] MEDS: CLINDAMYCIN 900MG IVPB 900 MG in PRE-MIXED 1 BAG 50 MG IV (05:12)
[2024-10-04] MEDS: ACETAMINOPHEN 325 MG TABLET 650 MG PO ×2 (05:13→13:07)
--- NOTE | 2024-10-04 05:34 | ECHO_ITS ---
Transthoracic Echo Report Ht (in): 74 Wt (lb): 575 Exam Location: Portable Status: Inpatient Electrician Elevator Maintenance: CANDELARIO Lima^^^^ Indications: Procedure Performed: BP: / HR: 105 Technical Quality: Very technically difficult study MEASUREMENTS (Male / Female) Normal Values 2D ECHO LV Diastolic Diameter PLAX 5.5 cm 4.2 - 5.9 / 3.9 - 5.3 cm LV Systolic Diameter PLAX 4.3 cm IVS Diastolic Thickness 0.9 cm 0.6 - 1.0 / 0.6 - 0.9 cm LVPW Diastolic Thickness 1.2 cm 0.6 - 1.0 / 0.6 - 0.9 cm LV Relative Wall Thickness 0.4 LVOT Diameter 3.4 cm Aortic Root Diameter 3.7 cm LA Systolic Diameter LX 4.7 cm 3.0 - 4.0 / 2.7 - 3.8 cm DOPPLER AV Peak Velocity 165.0 cm/s AV Peak Gradient 10.9 mmHg AV Mean Gradient 8.0 mmHg AV Velocity Time Integral 38.1 cm LVOT Peak Velocity 107.0 cm/s LVOT Peak Gradient 4.6 mmHg LVOT Velocity Time Integral 21.8 cm LVOT Cardiac Index 5392.3 cm?/min?m? AV Area Cont Eq vti 5.2 cm? AV Area Cont Eq pk 5.9 cm? MV Area PHT 3.9 cm? Mitral E Point Velocity 86.6 cm/s Mitral A Point Velocity 91.5 cm/s Mitral E to A Ratio 0.9 LV E' Lateral Velocity 13.8 cm/s Mitral E to LV E' Lateral Ratio 6.3 LV E' Septal Velocity 10.9 cm/s Mitral E to LV E' Septal Ratio 7.9 TR Peak Velocity 230.0 cm/s TR Peak Gradient 21.2 mmHg PV Peak Velocity 152.0 cm/s PV Peak Gradient 9.2 mmHg RVOT Peak Velocity 73.9 cm/s FINDINGS Left Ventricle Normal left ventricular size, wall thickness, systolic function with no obvious regional wall motion abnormalities. There is grade I diastolic dysfunction of the left ventricle (impaired relaxation pattern). The left ventricular ejection fraction is normal, estimated at 55-60%. Right Ventricle The right ventricle is normal in size and systolic function. The estimated right ventricular systolic pressure, 25 mmHg. Left Atrium The left atrium is normal by two-dimensional, color flow and Doppler imaging with no structural abnormalities, no thrombus formation present. Right Atrium The right atrium is normal by two-dimensional imaging, color flow and Doppler imaging with no structural abnormalities, no thrombus formation present. Atrial Septum The interatrial septum appears normal with no evidence of a shunt. Aorta The aorta is normal by two-dimensional, color flow and Doppler interrogation. Mitral Valve Mild mitral regurgitation. Aortic Valve Aortic valve sclerosis. Tricuspid Valve There is mild tricuspid valve regurgitation. Pulmonic Valve The pulmonic valve is not well visualized. There is no significant pulmonic valve regurgitation. Vessels The pulmonary artery appears normal. The inferior vena cava pulmonary and hepatic veins appear normal. Pericardium The pericardium is normal by two-dimensional imaging. There is no significant pericardial effusion. CONCLUSIONS Indication: Shortness of breath-rule out CHF Suboptimal and poor quality images. Normal LV size and function with an estimated EF of 55 to 60%. Diastolic dysfunction stage I Normal RV size and function with an estimated RVSP of 25 and 30 mmHg. Mild TR and trace MR. No evidence of any pericardial effusion Farhan Quiroz (Electronically Signed) Final Date: 04 October 2024 18:18
[2024-10-04 05:39] LABS: Basophils # (Auto) 0.1 Thou/mm3 (0.0-0.2); Basophils % (Auto) 0 % (0-2.5); Eosinophils # (Auto) 0.3 Thou/mm3 (0.0-0.5); Eosinophils % (Auto) 1 % (0-10); Hematocrit 35.2 % (41.0-53.0); Hemoglobin 11.4 g/dL (13.5-16.0); Immature Granulocytes % (Auto) 3 % (0-0); Immature Granulocytes Auto 0.73 Thou/mm3 (0.00-0.00); Lymphocytes # (Auto) 0.5 Thou/mm3 (1.0-4.8); Lymphocytes % (Auto) 2 % (10-50); Mean Corpuscular HGB Conc 32.4 g/dl (31.0-37.0); Mean Corpuscular Hemoglobin 31.1 pg (25.0-35.0); Mean Corpuscular Volume 96 fL (80-100); Monocytes # (Auto) 0.7 Thou/mm3 (0.0-0.8); Monocytes % (Auto) 3 % (0-12); Neutrophils # (Auto) 22.7 Thou/mm3 (1.8-7.7); Neutrophils % (Auto) 91 % (37-80); Nucleated Red Blood Cell % 0 /100 WBC (0); Platelet Count 201 Thou/mm3 (140-440); RDW Standard Deviation 46.6 fL (35.1-43.9); Red Blood Count 3.66 Miln/mm3 (4.50-5.90)
[2024-10-04 06:05] LABS: Alanine Aminotransferase 49 U/L (10-49); Albumin, Serum 3.6 gm/dL (3.5-5.0); Albumin/Globulin Ratio 1.1 (1.2-2.2); Alkaline Phosphatase 33 U/L (46-116); Anion Gap 9 (7-16); Aspartate Amino Transferase 57 U/L (0-34); BUN/Creatinine Ratio 19 Ratio (12-20); Bilirubin,Total 1.1 mg/dL (0.3-1.2); Blood Urea Nitrogen 35 mg/dL (9-23); Calcium 8.6 mg/dL (8.3-10.6); Calcium (Corrected) 8.9 mg/dL (8.5-10.1); Carbon Dioxide 24.9 mMol/L (20.0-31.0); Chloride 100 mMol/L (98-107); Creatinine (Component) 1.8 mg/dL (0.6-1.3); Estimated Creatinine Clearance 112.6 mL/min (>60); Globulin 3.3 gm/dL (2.3-3.5); Glucose 89 mg/dL (74-106); Magnesium 1.4 mg/dL (1.6-2.6); Osmolality,Calculated 275 (275-295); Phosphorous 2.6 mg/dL (2.4-5.1); Potassium 4.1 mMol/L (3.4-5.1); Sodium 134 mMol/L (136-145); Total Protein 6.9 gm/dL (5.7-8.2); eGFR 47 See Note
--- NOTE | 2024-10-04 07:28 | PC.NURSE ---
Rectal temp 102.3
[2024-10-04] MEDS: Magnesium Sulfate 4 GM Ivpb 4 GM/50 ML BAG IV (08:06)
[2024-10-04] MEDS: NAPH,KPH MBDB 1 PACKET (1.5 GM) PO ×2 (08:07→21:34)
[2024-10-04] MEDS: ENOXAPARIN SOD INJ 40 MG/0.4 ML SYRINGE SC (08:07)
--- NOTE | 2024-10-04 14:40 | PC.PT ---
PT eval only. Patient is xI with bed mobility, transfers, and ambulation. Patient is safe to ambulate to the bathroom and in the halls with no DME or staff assistance. RN made aware.
--- NOTE | 2024-10-04 15:31 | ESPR_ITS ---
Documentation for date of: 10/04/24 Subjective Subjective Interval history: No overnight events. Patient seen examined at bedside, sitting, comfortable. Patient reports good improvement in symptoms, although continues to endorse fever/chills. Patient denies chest pain, weakness, nausea, vomiting. Clear area of erythema with induration in left medial thigh. Continue IV antibiotics pending speciation. Fever overnight of 104.1. Exam Vital Signs Temp Pulse Resp BP Pulse Ox O2 Del Method O2 Flow Rate 98.2 F 12 L 18 146/82 H 94 L Nasal Cannula 2 10/04/24 12:00 10/04/24 12:46 10/04/24 12:46 10/04/24 12:00 10/04/24 12:46 10/04/24 12:00 10/04/24 12:00 FiO2 30 10/04/24 08:00 Narrative Exam PE: Gen: Well-developed and well-nourished. Morbidly obese. HEENT: NCAT, PERRLA, EOMI, MMM, anicteric conjunctivae. CVS: normal S1 and S2. RRR. No M/R/G. Resp: No rhonchi, rales, crackles or wheezing. Poor lung sounds due to body habitus. Abd: Pannus is edematous, indurated. Right lower quadrant tenderness. MSK: Good ROM in BUE & BLE. Significant nonpitting lymphedema bilateral lower extremities with stasis dermatitis. Erythema with induration, tenderness in left medial thigh. Neuro: CN II-XII grossly intact. Strength 5/5 in BUE & BLE. Alert and oriented x3. Psych: appropriate mood and affect. Objective Labs 10/05/24 05:50 10/05/24 05:50 Labs: Laboratory Results - last 24 hr 10/03/24 10/03/24 10/04/24 17:50 21:23 04:30 WBC 25.0 H D RBC 3.66 L Hgb 11.4 L Hct 35.2 L MCV 96 MCH 31.1 MCHC 32.4 RDW Std Deviation 46.6 H Plt Count 201 D Neut % (Auto) 91 H Lymph % (Auto) 2 L [place] % (Auto) 3 Eos % (Auto) 1 Baso % (Auto) 0 Neut # (Auto) 22.7 H Lymph # (Auto) 0.5 L [place] # (Auto) 0.7 Eos # (Auto) 0.3 Baso # (Auto) 0.1 Immature Gran # (Auto) 0.73 H Absolute Nucleated RBC 0.00 Immature Gran % 3 H Nucleated RBC % 0 Sodium 134 L Potassium 4.1 Chloride 100 Carbon Dioxide 24.9 Anion Gap 9 BUN 35 H Creatinine 1.8 H Estim Creat Clear Calc 112.6 eGFR 47 L BUN/Creatinine Ratio 19 Glucose 89 Calculated Osmolality 275 Lactic Acid 2.8 H 2.1 H Calcium 8.6 Corrected Calcium 8.9 Phosphorus 2.6 Magnesium 1.4 L Total Bilirubin 1.1 AST 57 H ALT 49 Alkaline Phosphatase 33 L D Total Protein 6.9 Albumin 3.6 Globulin 3.3 Albumin/Globulin Ratio 1.1 L Quality Measures Quality Measures sepsis Current suspected stage: sepsis Possible source: pulmonary Blood cultures ordered: yes Antibiotic ordered: Yes Assessment & Plan Assessment Current Active Medications: Generic Name Dose Route Start Last Admin Trade Name Freq PRN Reason Stop Dose Admin Acetaminophen 650 mg 10/03/24 05:31 10/04/24 13:07 Acetaminophen 325 Mg Tablet PO 11/02/24 05:30 650 mg Q6H PRN Administration Fever >100.3 or pain 1-3 Albuterol/Ipratropium 3 ml 10/03/24 05:51 10/03/24 19:13 Albuterol/Ipratropium (Duoneb) Rt [place]iel[place] 3 Ml Nebu INH 11/02/24 05:50 3 ml Q2HR PRN Administration SHORTNESS OF BREATH OR WHEEZE Enoxaparin Sodium 40 mg 10/03/24 09:00 10/04/24 08:07 Enoxaparin Sod Inj 40 Mg/0.4 Ml Syringe SC 10/17/24 08:59 40 mg QDAY RAD Administration Piperacillin/Tazobactam/Dextrose 3.375 gm in 50 mls @ 12.5 mls/hr 10/03/24 22:00 10/04/24 13:49 Zosyn IV 10/10/24 21:59 12.5 mls/hr Q8HR RAD Administration Ondansetron HCl 4 mg 10/03/24 05:31 Ondansetron Inj 2 Mg/Ml Inj 2 Ml IV 11/02/24 05:30 Q6H PRN NAUSEA OR VOMITING Protocol Oxycodone/Acetaminophen 1 tab 10/03/24 05:31 Oxycodone/Apap 5/325 Tablet PO 10/08/24 05:30 Q6H PRN PAIN SCALE 4-6 (Moderate Potassium Phos/Sodium Phos 1 packet 10/03/24 09:00 10/04/24 08:07 Naph,[facility] Mbdb 1 Packet (1.5 Gm) PO 11/02/24 08:59 1 packet BID RAD Administration Sennosides 1 tab 10/03/24 05:31 Senna Tablet PO 11/02/24 05:30 QDAY PRN constipation Protocol Plan 44-year-old male with a previous medical history of hypertension and morbid obesity who was brought in by ambulance due to fever, chills and shortness of breath. He reports that this started a few days ago. Patient is going to be admitted for sepsis secondary to community-acquired pneumonia treatment and management. #Sepsis secondary to #Cellulitis #Bacteremia?Streptococcus Patient reports fever, chills, shortness of breath. In the ED he had a fever 105.3, tachypneic, labs showed leukocytosis. Imaging is suspicious for pneumonia, poor study due to body habitus.. Patient received 500 ml fluids in the ED. Patient reports significant amount of sick contacts at work. Patient has right lower quadrant tenderness on exam. Liver ultrasound and soft tissue ultrasound of abdomen did not show acute pathology, unable to visualize gallbladder. Lactic acid uptrending to 3.9, patient blood pressure is borderline low, suspect blood pressure is inaccurate given patient's body habitus. Patient has area of erythema and tenderness with induration to left medial thigh, appears to be cellulitis patient clinical exam. Blood cultures +2/2 for GPC bacteria, Streptococcus, pending speciation. Lactic acid normalized with IV fluids. Antibiotics broadened. Patient had chest abdomen pelvis CT, no signs of pneumonia. - Zosyn 3.375 g IV every 8 hours - Blood cultures ordered - Sputum cultures ordered - CT abdomen/pelvis with contrast - Lactated ringer bolus at 125ml/hr #MARCO Creatinine 1.2, in 2021 was 0.8. Patient also has elevated lactic acidosis, suspect prerenal MARCO due to dehydration. - monitor daily CMP - avoid nephrotoxic agents - LR fluids as above #Diverticulitis Patient received CT C/A/P, diagnostic utility limited due to poor penetration. No pneumonia seen, but did show diverticulitis, patient has minimal symptoms and is covered with antibiotics as above. - Zosyn as above #Hypertension Patient reports taking metoprolol at home. Initial blood pressure reading was 236/78, but it was taken right after he moved to the [facility], after that blood pressure was normal. Patient reports that it is easier for him to breathe when he sits up. ? Will hold blood pressure medication due to low?normal blood pressure ? Echo ordered #Morbid obesity #Possible FAN Patient reports that he has been approved for bariatric surgery. Chart review shows that he has a prescription for the Ozempic. Patient reports that he's snoring and night. He did not have sleep study before. - CPAP HS PRN ? Consider switching to tirzepatide outpatient #Chronic venous insufficiency Patient has bilateral non-pitting non-painful edema with induration and dry skin. Stable. FEN: cardiac DVT prophylaxis: lovenox 40 mg sc GI prophylaxis: none Dispo: telemetry CODE STATUS: Full code Plan of care discussed with attending Dr. Stockton. Sumeet Berry MD PGY?1 Attending Provider Attestation/Addendum Pablo, Tiffanie Stockton, DO, attest that I was physically present for the torres portions of the service and evaluated the patient with the resident and I reviewed and discussed the case with the resident and agree with the resident's findings and plans of care as documented above Patient seen and evaluated this AM. He states he is feeling improved. he continus to have erythema in B//l LE and inner thighs. He appears to have a fungal infection overlaying his right foot. No rashes or breaks in skin on rest of body. Blood culture positive for group G strep.CT chest/ abd/pelvis shows possible mild acute diverticulitis. Patient continues to be febrile overnight. Will DC clindamycin and await final cutlures and sensitivities of blood culture. Continue with IV vancomycin and zosyn at this time.
[2024-10-05] VITALS (9 sets, daily range): BP systolic 138–167; BP diastolic 70–84; PULSE 74–97; RESP 18–93; TEMP 35.9–36.6; O2SAT 96–99
[2024-10-05] MEDS: PIPER/TAZO 3.375 GM PREMIX 3.375 GM/50 ML BAG IV (05:49)
[2024-10-05] MEDS: ACETAMINOPHEN 325 MG TABLET 650 MG PO ×3 (06:04→20:35)
[2024-10-05 06:06] LABS: Basophils % (Auto) 0 % (0-2.5); Eosinophils % (Auto) 0 % (0-10); Hematocrit 33.3 % (41.0-53.0); Immature Granulocytes % (Auto) 1 % (0-0); Immature Granulocytes Auto 0.13 Thou/mm3 (0.00-0.00); Lymphocytes # (Auto) 0.7 Thou/mm3 (1.0-4.8); Lymphocytes % (Auto) 4 % (10-50); Mean Corpuscular Hemoglobin 31.6 pg (25.0-35.0); Mean Corpuscular Volume 96 fL (80-100); Monocytes # (Auto) 0.7 Thou/mm3 (0.0-0.8); Monocytes % (Auto) 4 % (0-12); Neutrophils # (Auto) 14.3 Thou/mm3 (1.8-7.7); Neutrophils % (Auto) 90 % (37-80); Nucleated Red Blood Cell % 0 /100 WBC (0); Platelet Count 172 Thou/mm3 (140-440); RDW Standard Deviation 46.5 fL (35.1-43.9); Red Blood Count 3.48 Miln/mm3 (4.50-5.90); White Blood Count 15.8 Thou/mm3 (3.8-10.6)
[2024-10-05 06:41] LABS: Alanine Aminotransferase 50 U/L (10-49); Albumin, Serum 3.9 gm/dL (3.5-5.0); Albumin/Globulin Ratio 1.1 (1.2-2.2); Alkaline Phosphatase 38 U/L (46-116); Anion Gap 7 (7-16); Aspartate Amino Transferase 57 U/L (0-34); BUN/Creatinine Ratio 19 Ratio (12-20); Bilirubin,Total 0.9 mg/dL (0.3-1.2); Blood Urea Nitrogen 26 mg/dL (9-23); Calcium 8.5 mg/dL (8.3-10.6); Calcium (Corrected) 8.6 mg/dL (8.5-10.1); Carbon Dioxide 24.3 mMol/L (20.0-31.0); Chloride 98 mMol/L (98-107); Creatinine (Component) 1.4 mg/dL (0.6-1.3); Estimated Creatinine Clearance 144.8 mL/min (>60); Globulin 3.5 gm/dL (2.3-3.5); Glucose 111 mg/dL (74-106); Magnesium 2.2 mg/dL (1.6-2.6); Osmolality,Calculated 264 (275-295); Phosphorous 2.8 mg/dL (2.4-5.1); Potassium 3.6 mMol/L (3.4-5.1); Sodium 129 mMol/L (136-145); Total Protein 7.4 gm/dL (5.7-8.2); eGFR > 60 See Note
[2024-10-05] MEDS: ENOXAPARIN SOD INJ 40 MG/0.4 ML SYRINGE SC (09:24)
[2024-10-05] MEDS: NAPH,KPH MBDB 1 PACKET (1.5 GM) PO ×2 (09:25→20:36)
[2024-10-05 09:27] LABS: Vancomycin,Trough < 3.0 mcg/mL (5.0-10.0)
[2024-10-05] MEDS: cefTRIAXone/D5w 1gm IV premix 1 GM/50 ML BAG IV (11:07)
[2024-10-05] MEDS: SODIUM CHLORIDE 0.9% 1000 ML 1,000 ML 100 ML IV (11:09)
--- NOTE | 2024-10-05 11:51 | ESPR_ITS ---
Documentation for date of: 10/05/24 Subjective Subjective Interval history: Patient seen today at the bedside fine awake, alert, oriented x 3. Overnight patient was not able to tolerate BiPAP states he becomes claustrophobic and was given hydroxyzine x 1. Vital signs and labs reviewed. Repeat cultures are negative in 24 hours in regards to the patient's bacteremia and cellulitis antibiotics adjusted to ceftriaxone. Ordered 1 bag of normal saline. Anticipate discharge in the next 24-48 hours. Exam Vital Signs Temp Pulse Resp BP Pulse Ox O2 Del Method O2 Flow Rate 97.1 F 88 19 166/84 H 97 Nasal Cannula 5 10/05/24 07:58 10/05/24 07:58 10/05/24 07:58 10/05/24 07:58 10/05/24 07:58 10/05/24 07:58 10/05/24 07:58 FiO2 30 10/04/24 08:00 Narrative Exam Physical Exam GENERAL: NAD, AAOx3, Morbidly obese HEENT: Moist mucosa. Eyes open, symmetrical, & clear, Loss of anatomical landmarks CARDIO: Heart RRR, no obvious murmurs PULM: No noted coughing/dyspnea CTA B/L, no R/W/R GI: Abdomen soft, nondistended, no pain on palpation. BSx4 SKIN/MSK/EXT: Erythema around medial thigh of the left lower extremity demarcated, Pedal pulses present B/L NEURO: AAOx3, no focal neuro deficits, able to move all 4 extremities Objective Labs 10/06/24 04:35 10/06/24 04:35 Labs: Laboratory Results - last 24 hr 10/05/24 10/05/24 05:50 08:30 WBC 15.8 H D RBC 3.48 L Hgb 11.0 L Hct 33.3 L MCV 96 MCH 31.6 MCHC 33.0 RDW Std Deviation 46.5 H Plt Count 172 Neut % (Auto) 90 H Lymph % (Auto) 4 L [place] % (Auto) 4 Eos % (Auto) 0 Baso % (Auto) 0 Neut # (Auto) 14.3 H Lymph # (Auto) 0.7 L [place] # (Auto) 0.7 Eos # (Auto) 0.0 Baso # (Auto) 0.0 Immature Gran # (Auto) 0.13 H Absolute Nucleated RBC 0.00 Immature Gran % 1 H Nucleated RBC % 0 Sodium 129 L Potassium 3.6 D Chloride 98 Carbon Dioxide 24.3 Anion Gap 7 BUN 26 H Creatinine 1.4 H Estim Creat Clear Calc 144.8 eGFR > 60 BUN/Creatinine Ratio 19 Glucose 111 H Calculated Osmolality 264 L Calcium 8.5 Corrected Calcium 8.6 Phosphorus 2.8 Magnesium 2.2 Total Bilirubin 0.9 AST 57 H ALT 50 H Alkaline Phosphatase 38 L Total Protein 7.4 Albumin 3.9 Globulin 3.5 Albumin/Globulin Ratio 1.1 L Vancomycin Trough < 3.0 L Quality Measures Quality Measures sepsis Current suspected stage: sepsis Possible source: pulmonary Blood cultures ordered: yes Antibiotic ordered: Yes Assessment & Plan Assessment Current Active Medications: Generic Name Dose Route Start Last Admin Trade Name Freq PRN Reason Stop Dose Admin Acetaminophen 650 mg 10/03/24 05:31 10/05/24 06:04 Acetaminophen 325 Mg Tablet PO 11/02/24 05:30 650 mg Q6H PRN Administration Fever >100.3 or pain 1-3 Albuterol/Ipratropium 3 ml 10/03/24 05:51 10/03/24 19:13 Albuterol/Ipratropium (Duoneb) Rt [place] 3 Ml Nebu INH 11/02/24 05:50 3 ml Q2HR PRN Administration SHORTNESS OF BREATH OR WHEEZE Enoxaparin Sodium 60 mg 10/05/24 21:00 Enoxaparin Sod Inj 60 Mg/0.6 Ml Syringe SC 10/17/24 08:59 Q12HR RAD Ceftriaxone Sodium/Dextrose 1 gm in 50 mls @ 100 mls/hr 10/05/24 09:59 10/05/24 11:07 Rocephin/D5w 1gm Iv Premix IV 10/12/24 09:58 100 mls/hr QDAY RAD Administration Sodium Chloride 1,000 mls @ 100 mls/hr 10/05/24 10:00 10/05/24 11:09 Ns IV 10/05/24 19:59 100 mls/hr .Q10H RAD Administration Ondansetron HCl 4 mg 10/03/24 05:31 Ondansetron Inj 2 Mg/Ml Inj 2 Ml IV 11/02/24 05:30 Q6H PRN NAUSEA OR VOMITING Protocol Oxycodone/Acetaminophen 1 tab 10/03/24 05:31 Oxycodone/Apap 5/325 Tablet PO 10/08/24 05:30 Q6H PRN PAIN SCALE 4-6 (Moderate Potassium Phos/Sodium Phos 1 packet 10/03/24 09:00 10/05/24 09:25 [facility] Mbdb 1 Packet (1.5 Gm) PO 11/02/24 08:59 1 packet BID RAD Administration Sennosides 1 tab 10/03/24 05:31 Senna Tablet PO 11/02/24 05:30 QDAY PRN constipation Protocol Plan 44-year-old male with a previous medical history of hypertension and morbid obesity who was brought in by ambulance due to fever, chills and shortness of breath. He reports that this started a few days ago. Patient is going to be admitted for sepsis secondary to community-acquired pneumonia treatment and management. #Sepsis secondary to #Cellulitis #Bacteremia?Group G Streptococcus On admission patient reported with fever, chills, shortness of breath. In the ED was found with a fever of 105.3 with tachypnea and leukocytosis. X-ray suspicious for pneumonia however study was poor due to body habitus and on repeat CT no signs of pneumonia were found. Patient on admission was found with an uptrending lactic acid however now downtrending no need to further trend. Patient reports significant amount of sick contacts at work. Patient had right lower quadrant tenderness on exam. Liver ultrasound and soft tissue ultrasound of abdomen did not show acute pathology, unable to visualize gallbladder. Patient has area of erythema and tenderness with induration to left medial thigh, appears to be cellulitis patient clinical exam. Blood cultures +2/2 for GPC bacteria, Streptococcus, repeat blood cultures negative ? Zosyn switched to ceftriaxone ? Repeat blood cultures negative in 24 hours ? Sputum cultures negative ? Ordered 1 bag of normal saline at 100 cc/h #MARCO? Improving Creatinine 1.2, in 2021 was 0.8. Patient also has elevated lactic acidosis, suspect prerenal MARCO due to dehydration. - monitor daily CMP - avoid nephrotoxic agents ? On IVF's #Diverticulitis Patient received CT C/A/P, diagnostic utility limited due to poor penetration. No pneumonia seen, but did show diverticulitis, patient has minimal symptoms and is covered with antibiotics as above. ? On antibiotics #Hypertension Patient reports taking metoprolol at home. Initial blood pressure reading was 236/78, but it was taken right after he moved to the [facility], after that blood pressure was normal. Patient reports that it is easier for him to breathe when he sits up. Echo showed ejection fraction 55-60% ? Will hold blood pressure medication due to low?normal blood pressure #Morbid obesity #Possible FAN Patient reports that he has been approved for bariatric surgery. Chart review shows that he has a prescription for the Ozempic. Patient reports that he's snoring and night. He did not have sleep study before. - CPAP HS PRN, however not tolerating due to claustrophobia ? Consider switching to tirzepatide outpatient #Chronic venous insufficiency Patient has bilateral non-pitting non-painful edema with induration and dry skin. Stable. Plan of care discussed with attending Dr. Kath Singletary MD PGY-1 Diet: cardiac DVT prophylaxis: lovenox 40 mg sc GI prophylaxis: none Dispo: telemetry CODE STATUS: Full code Attending Provider Attestation/Addendum Tiffanie Shah, DO, attest that I was physically present for the torres portions of the service and evaluated the patient with the resident and I reviewed and discussed the case with the resident and agree with the resident's findings and plans of care as documented above Patient seen eval this a.m. He states that he is feeling much improved. Patient is sitting in a wheelchair states he is tired of sitting in bed. Encourage patient to walk or otherwise keep his legs propped up due to lower extremity edema. He continues to have some erythema in his medial thighs, but improved in his panniculus. Cultures have been final and shows group G strep bacteremia. Will narrow antibiotics to Rocephin. Patient has otherwise been afebrile. He is noted to have mild hyponatremia. Will give gentle IV fluids with normal saline. If patient remains stable in a.m., anticipate discharge within the next 24 hours as patient has been afebrile. He denies any shortness of breath otherwise.
[2024-10-05] MEDS: ENOXAPARIN SOD INJ 60 MG/0.6 ML SYRINGE SC (20:39)
[2024-10-05] MEDS: oxyCODONE/APAP 5/325 TABLET 1 TAB PO (23:24)
[2024-10-06] VITALS (10 sets, daily range): BP systolic 131–161; BP diastolic 66–82; PULSE 72–102; RESP 10–95; TEMP 36.1–36.6; O2SAT 91–100; BMI 73.7
[2024-10-06] MEDS: ACETAMINOPHEN 325 MG TABLET 650 MG PO ×3 (02:55→16:45)
[2024-10-06] MEDS: oxyCODONE/APAP 5/325 TABLET 1 TAB PO ×3 (05:22→19:42)
[2024-10-06 06:39] LABS: Basophils % (Auto) 0 % (0-2.5); Eosinophils % (Auto) 0 % (0-10); Hematocrit 33.6 % (41.0-53.0); Hemoglobin 10.9 g/dL (13.5-16.0); Immature Granulocytes % (Auto) 1 % (0-0); Immature Granulocytes Auto 0.09 Thou/mm3 (0.00-0.00); Lymphocytes # (Auto) 0.8 Thou/mm3 (1.0-4.8); Lymphocytes % (Auto) 8 % (10-50); Mean Corpuscular HGB Conc 32.4 g/dl (31.0-37.0); Mean Corpuscular Hemoglobin 31.1 pg (25.0-35.0); Mean Corpuscular Volume 96 fL (80-100); Monocytes # (Auto) 0.8 Thou/mm3 (0.0-0.8); Monocytes % (Auto) 8 % (0-12); Neutrophils # (Auto) 8.2 Thou/mm3 (1.8-7.7); Neutrophils % (Auto) 83 % (37-80); Nucleated Red Blood Cell % 0 /100 WBC (0); Platelet Count 173 Thou/mm3 (140-440); RDW Standard Deviation 47.2 fL (35.1-43.9); White Blood Count 9.9 Thou/mm3 (3.8-10.6)
[2024-10-06 07:10] LABS: Alanine Aminotransferase 52 U/L (10-49); Albumin, Serum 3.6 gm/dL (3.5-5.0); Albumin/Globulin Ratio 1.1 (1.2-2.2); Alkaline Phosphatase 41 U/L (46-116); Anion Gap 8 (7-16); Aspartate Amino Transferase 52 U/L (0-34); BUN/Creatinine Ratio 20 Ratio (12-20); Bilirubin,Total 0.5 mg/dL (0.3-1.2); Blood Urea Nitrogen 24 mg/dL (9-23); Calcium 8.5 mg/dL (8.3-10.6); Calcium (Corrected) 8.8 mg/dL (8.5-10.1); Carbon Dioxide 28.1 mMol/L (20.0-31.0); Chloride 100 mMol/L (98-107); Creatinine (Component) 1.2 mg/dL (0.6-1.3); Estimated Creatinine Clearance 168.9 mL/min (>60); Globulin 3.3 gm/dL (2.3-3.5); Glucose 98 mg/dL (74-106); Osmolality,Calculated 275 (275-295); Phosphorous 2.2 mg/dL (2.4-5.1); Potassium 3.9 mMol/L (3.4-5.1); Sodium 136 mMol/L (136-145); Total Protein 6.9 gm/dL (5.7-8.2); eGFR > 60 See Note
[2024-10-06] MEDS: ENOXAPARIN SOD INJ 60 MG/0.6 ML SYRINGE SC ×2 (08:54→20:16)
[2024-10-06] MEDS: NAPH,KPH MBDB 1 PACKET (1.5 GM) PO ×2 (08:54→20:16)
[2024-10-06] MEDS: cefTRIAXone/D5w 1gm IV premix 1 GM/50 ML BAG IV (08:54)
--- NOTE | 2024-10-06 10:18 | XR_ITS ---
Examination: Duplex scan of the lower extremity, unilateral left complete Date and time of exam: October 06, 2024 at 1425 hours INDICATIONS: Left leg edema and redness today Technique: Duplex scan of the extremity veins using B-mode/grayscale imaging and Doppler spectral analysis and color flow Attention is directed to internal echogenicity, compression and augmentation involving these veins, color flow assessment, spectral analysis Findings: Major deep venous structures in the extremity demonstrate normal course and caliber. Morbid obesity precludes diagnostic visualization of the distal superficial femoral and peroneal veins There is no evidence of deep vein thrombosis. Normal color flow and spectral analysis Impression: Limited study No acute DVT demonstrated
--- NOTE | 2024-10-06 11:50 | PC.SS ---
rounding note: Patient to d/c home today
[2024-10-06] MEDS: cefTRIAXone 2 GM in SODIUM CHLORIDE 0.9% (Popper) 50 ML IV (12:11)
[2024-10-06] MEDS: DOXYCYCLINE 100 MG TABLET PO ×2 (12:12→20:16)
--- NOTE | 2024-10-06 15:09 | ESPR_ITS ---
<Statement entered by Kiel Bagley MD - 10/12/24 14:45> I reviewed above note and agree with findings and plans. I have also personally examined the patient with medicine team and went over assessment and plan with medical team including internet developer and resident physician. Documentation for date of: 10/06/24 Subjective Subjective Interval history: Patient seen today at the bedside found awake, alert, oriented x 3. Vital signs and labs reviewed. Cellulitis in the medial thigh seems to have worsened compared to the demarcation made doxycycline was added to antibiotic regimen with Rocephin. Left lower extremity ultrasound was ordered to rule out any DVT. Infectious disease was consulted. Will continue to monitor at this time. Exam Vital Signs Temp Pulse Resp BP Pulse Ox O2 Del Method O2 Flow Rate 97.6 F 72 10 L 131/77 H 96 Room Air 5 10/06/24 11:58 10/06/24 12:00 10/06/24 11:58 10/06/24 11:58 10/06/24 11:58 10/06/24 11:58 10/06/24 08:00 FiO2 30 10/06/24 08:00 Narrative Exam Physical Exam GENERAL: NAD, AAOx3, Morbidly obese HEENT: Moist mucosa. Eyes open, symmetrical, & clear, Loss of anatomical landmarks CARDIO: Heart RRR, no obvious murmurs PULM: No noted coughing/dyspnea CTA B/L, no R/W/R GI: Abdomen soft, nondistended, no pain on palpation. BSx4 SKIN/MSK/EXT: Erythema around medial thigh of the left lower extremity demarcated, Pedal pulses present B/L NEURO: AAOx3, no focal neuro deficits, able to move all 4 extremities Objective Labs 10/06/24 04:35 10/06/24 04:35 Labs: Laboratory Results - last 24 hr 10/06/24 04:35 WBC 9.9 D RBC 3.50 L Hgb 10.9 L Hct 33.6 L MCV 96 MCH 31.1 MCHC 32.4 RDW Std Deviation 47.2 H Plt Count 173 Neut % (Auto) 83 H Lymph % (Auto) 8 L [place] % (Auto) 8 Eos % (Auto) 0 Baso % (Auto) 0 Neut # (Auto) 8.2 H Lymph # (Auto) 0.8 L [place] # (Auto) 0.8 Eos # (Auto) 0.0 Baso # (Auto) 0.0 Immature Gran # (Auto) 0.09 H Absolute Nucleated RBC 0.00 Immature Gran % 1 H Nucleated RBC % 0 Sodium 136 Potassium 3.9 Chloride 100 Carbon Dioxide 28.1 Anion Gap 8 BUN 24 H Creatinine 1.2 Estim Creat Clear Calc 168.9 eGFR > 60 BUN/Creatinine Ratio 20 Glucose 98 Calculated Osmolality 275 Calcium 8.5 Corrected Calcium 8.8 Phosphorus 2.2 L Magnesium 2.0 Total Bilirubin 0.5 AST 52 H ALT 52 H Alkaline Phosphatase 41 L Total Protein 6.9 Albumin 3.6 Globulin 3.3 Albumin/Globulin Ratio 1.1 L Quality Measures Quality Measures sepsis Current suspected stage: sepsis Possible source: pulmonary Blood cultures ordered: yes Antibiotic ordered: Yes Assessment & Plan Assessment Current Active Medications: Generic Name Dose Route Start Last Admin Trade Name Freq PRN Reason Stop Dose Admin Acetaminophen 650 mg 10/03/24 05:31 10/06/24 08:53 Acetaminophen 325 Mg Tablet PO 11/02/24 05:30 650 mg Q6H PRN Administration Fever >100.3 or pain 1-3 Albuterol/Ipratropium 3 ml 10/03/24 05:51 10/03/24 19:13 Albuterol/Ipratropium (Duoneb) Rt [place] 3 Ml Nebu INH 11/02/24 05:50 3 ml Q2HR PRN Administration SHORTNESS OF BREATH OR WHEEZE Doxycycline Hyclate 100 mg 10/06/24 10:30 10/06/24 12:12 Doxycycline 100 Mg Tablet PO 10/13/24 10:29 100 mg BID RAD Administration Enoxaparin Sodium 60 mg 10/05/24 21:00 10/06/24 08:54 Enoxaparin Sod Inj 60 Mg/0.6 Ml Syringe SC 10/17/24 08:59 60 mg Q12HR RAD Administration Ceftriaxone Sodium 2 gm/ 50 mls @ 100 mls/hr 10/06/24 10:16 10/06/24 12:11 Sodium Chloride IV 10/13/24 10:15 100 mls/hr QDAY RAD Administration Ondansetron HCl 4 mg 10/03/24 05:31 Ondansetron Inj 2 Mg/Ml Inj 2 Ml IV 11/02/24 05:30 Q6H PRN NAUSEA OR VOMITING Protocol Oxycodone/Acetaminophen 1 tab 10/03/24 05:31 10/06/24 12:11 Oxycodone/Apap 5/325 Tablet PO 10/08/24 05:30 1 tab Q6H PRN Administration PAIN SCALE 4-6 (Moderate Potassium Phos/Sodium Phos 1 packet 10/03/24 09:00 10/06/24 08:54 Naph,[facility] Mbdb 1 Packet (1.5 Gm) PO 11/02/24 08:59 1 packet BID RAD Administration Sennosides 1 tab 10/03/24 05:31 Senna Tablet PO 11/02/24 05:30 QDAY PRN constipation Protocol Plan 44-year-old male with a previous medical history of hypertension and morbid obesity who was brought in by ambulance due to fever, chills and shortness of breath. He reports that this started a few days ago. Patient is going to be admitted for sepsis secondary to community-acquired pneumonia treatment and management. #Sepsis secondary to #Cellulitis #Bacteremia?Group G Streptococcus On admission patient reported with fever, chills, shortness of breath. In the ED was found with a fever of 105.3 with tachypnea and leukocytosis. X-ray suspicious for pneumonia however study was poor due to body habitus and on repeat CT no signs of pneumonia were found. Patient on admission was found with an uptrending lactic acid however now downtrending no need to further trend. Patient reports significant amount of sick contacts at work. Patient had right lower quadrant tenderness on exam. Liver ultrasound and soft tissue ultrasound of abdomen did not show acute pathology, unable to visualize gallbladder. Patient has area of erythema and tenderness with induration to left medial thigh, appears to be cellulitis patient clinical exam. Blood cultures +2/2 for GPC bacteria, Streptococcus, repeat blood cultures negative ? Ceftriaxone, doxycyline added ? Repeat blood cultures negative in 24 hours ? Sputum cultures negative ? ID consulted, appreciate reccs #MARCO? resolved Creatinine 1.2, in 2021 was 0.8. Patient also has elevated lactic acidosis, suspect prerenal MARCO due to dehydration. - monitor daily CMP - avoid nephrotoxic agents ? On IVF's #Diverticulitis Patient received CT C/A/P, diagnostic utility limited due to poor penetration. No pneumonia seen, but did show diverticulitis, patient has minimal symptoms and is covered with antibiotics as above. ? On antibiotics #Hypertension Patient reports taking metoprolol at home. Initial blood pressure reading was 236/78, but it was taken right after he moved to the [facility], after that blood pressure was normal. Patient reports that it is easier for him to breathe when he sits up. Echo showed ejection fraction 55-60% ? #Morbid obesity #Possible FAN Patient reports that he has been approved for bariatric surgery. Chart review shows that he has a prescription for the Ozempic. Patient reports that he's snoring and night. He did not have sleep study before. - CPAP HS PRN, however not tolerating due to claustrophobia ? Consider switching to tirzepatide outpatient #Chronic venous insufficiency Patient has bilateral non-pitting non-painful edema with induration and dry skin. Stable. Plan of care discussed with my senior Dr. Mcarthur and my attending Dr. Yudi Singletary MD PGY-1 Diet: cardiac DVT prophylaxis: lovenox 40 mg sc GI prophylaxis: none Dispo: telemetry CODE STATUS: Full code
[2024-10-06] MEDS: hydroCHLOROthiazide 12.5 MG CAPSULE 25 MG PO (16:45)
[2024-10-06] MEDS: Lisinopril 20 MG TABLET PO (16:45)
[2024-10-07] VITALS (10 sets, daily range): BP systolic 90–187; BP diastolic 60–82; PULSE 60–91; RESP 16–96; TEMP 35.9–36.9; O2SAT 92–100; BMI 73.7
[2024-10-07 05:38] LABS: Basophils % (Auto) 0 % (0-2.5); Eosinophils % (Auto) 0 % (0-10); Hematocrit 32.9 % (41.0-53.0); Hemoglobin 10.8 g/dL (13.5-16.0); Immature Granulocytes % (Auto) 3 % (0-0); Immature Granulocytes Auto 0.26 Thou/mm3 (0.00-0.00); Lymphocytes # (Auto) 1.2 Thou/mm3 (1.0-4.8); Lymphocytes % (Auto) 13 % (10-50); Mean Corpuscular HGB Conc 32.8 g/dl (31.0-37.0); Mean Corpuscular Volume 95 fL (80-100); Monocytes # (Auto) 1.2 Thou/mm3 (0.0-0.8); Monocytes % (Auto) 12 % (0-12); Neutrophils % (Auto) 72 % (37-80); Nucleated Red Blood Cell % 0 /100 WBC (0); Platelet Count 164 Thou/mm3 (140-440); RDW Standard Deviation 45.7 fL (35.1-43.9); Red Blood Count 3.48 Miln/mm3 (4.50-5.90); White Blood Count 9.7 Thou/mm3 (3.8-10.6)
[2024-10-07 06:02] LABS: Alanine Aminotransferase 59 U/L (10-49); Albumin, Serum 3.5 gm/dL (3.5-5.0); Albumin/Globulin Ratio 1.1 (1.2-2.2); Alkaline Phosphatase 57 U/L (46-116); Anion Gap 8 (7-16); Aspartate Amino Transferase 51 U/L (0-34); BUN/Creatinine Ratio 19 Ratio (12-20); Bilirubin,Total 0.4 mg/dL (0.3-1.2); Blood Urea Nitrogen 19 mg/dL (9-23); Calcium 8.1 mg/dL (8.3-10.6); Calcium (Corrected) 8.5 mg/dL (8.5-10.1); Carbon Dioxide 26.8 mMol/L (20.0-31.0); Chloride 102 mMol/L (98-107); Estimated Creatinine Clearance 202.7 mL/min (>60); Globulin 3.1 gm/dL (2.3-3.5); Glucose 101 mg/dL (74-106); Magnesium 1.8 mg/dL (1.6-2.6); Osmolality,Calculated 276 (275-295); Potassium 4.1 mMol/L (3.4-5.1); Sodium 137 mMol/L (136-145); Total Protein 6.6 gm/dL (5.7-8.2); eGFR > 60 See Note
[2024-10-07] MEDS: NAPH,KPH MBDB 1 PACKET (1.5 GM) PO ×2 (08:56→20:15)
[2024-10-07] MEDS: LOSARTAN POTASSIUM 25 MG TABLET 100 MG PO (08:56)
[2024-10-07] MEDS: ENOXAPARIN SOD INJ 60 MG/0.6 ML SYRINGE SC ×2 (08:57→20:15)
[2024-10-07] MEDS: hydroCHLOROthiazide 12.5 MG CAPSULE 25 MG PO (08:57)
[2024-10-07] MEDS: oxyCODONE/APAP 5/325 TABLET 1 TAB PO ×3 (08:57→21:51)
[2024-10-07] MEDS: DOXYCYCLINE 100 MG TABLET PO ×2 (08:58→20:15)
[2024-10-07] MEDS: cefTRIAXone/D5w 2gm 2 GM/50 ML BAG IV (10:00)
--- NOTE | 2024-10-07 14:04 | ESPR_ITS ---
<Statement entered by Kiel Bagley MD - 10/12/24 14:46> I reviewed above note and agree with findings and plans. I have also personally examined the patient with medicine team and went over assessment and plan with medical team including internal combustion engine assembler and resident physician. Documentation for date of: 10/07/24 Subjective Subjective Interval history: Patient was seen and examined at bedside this AM. No acute events overnight. Patient tolerating diet, adequate urine output and mentation is at baseline. Patient endorses improvement of cellulitis in the medial thigh after doxycycline was added to and Rocephin increased to 2g Left lower extremity US ruled out any DVT. However he continues to have worsening swelling, he was advised to keep his legs raised. Infectious disease was consulted, pending recommendations. Patient counseled extensively on outpatient GLP 1 benefit. Exam Vital Signs Temp Pulse Resp BP Pulse Ox O2 Del Method O2 Flow Rate 96.7 F L 60 22 H 125/76 95 Room Air 3 10/07/24 08:00 10/07/24 08:57 10/07/24 08:00 10/07/24 08:57 10/07/24 08:00 10/07/24 08:00 10/07/24 07:35 FiO2 30 10/07/24 04:00 Narrative Exam Constitutional Alert, oriented x3. Morbidly obese. HEENT Vision grossly intact. Patent nares. Trachea midline. Respiratory Chest normal on inspection and clear to auscultation bilaterally. Cardiovascular S1 and S2 audible, RRR. No murmurs or carotid bruit. No gross JVD. Abdominal Soft and non tender to palpation in all quadrants. BS + Genitourinary No bladder tenderness, no flank pain. Normal to palpation. Musculoskeletal LT LE erythema- reduced from initial demarcation. Swelling 3+ with CVI skin changes. Pedal pulses present B/L Neurological CN II - XII grossly intact. Extremity motor and sensation grossly intact. Skin Warm, dry and intact. No apparent lesions. Psychiatric Patient has a good affect, is cooperative but anxious to go home. Objective Labs 10/07/24 04:05 10/07/24 04:05 Labs: Laboratory Results - last 24 hr 10/07/24 04:05 WBC 9.7 RBC 3.48 L Hgb 10.8 L Hct 32.9 L MCV 95 MCH 31.0 MCHC 32.8 RDW Std Deviation 45.7 H Plt Count 164 Neut % (Auto) 72 Lymph % (Auto) 13 Moody % (Auto) 12 Eos % (Auto) 0 Baso % (Auto) 0 Neut # (Auto) 7.0 Lymph # (Auto) 1.2 Moody # (Auto) 1.2 H Eos # (Auto) 0.0 Baso # (Auto) 0.0 Immature Gran # (Auto) 0.26 H Absolute Nucleated RBC 0.00 Immature Gran % 3 H Nucleated RBC % 0 Sodium 137 Potassium 4.1 Chloride 102 Carbon Dioxide 26.8 Anion Gap 8 BUN 19 Creatinine 1.0 Estim Creat Clear Calc 202.7 eGFR > 60 BUN/Creatinine Ratio 19 Glucose 101 Calculated Osmolality 276 Calcium 8.1 L Corrected Calcium 8.5 Phosphorus 3.0 Magnesium 1.8 Total Bilirubin 0.4 AST 51 H ALT 59 H Alkaline Phosphatase 57 D Total Protein 6.6 Albumin 3.5 Globulin 3.1 Albumin/Globulin Ratio 1.1 L Quality Measures Quality Measures sepsis Current suspected stage: sepsis Possible source: pulmonary Blood cultures ordered: yes Antibiotic ordered: Yes Assessment & Plan Assessment Current Active Medications: Generic Name Dose Route Start Last Admin Trade Name Freq PRN Reason Stop Dose Admin Acetaminophen 1,000 mg 10/07/24 07:21 Acetaminophen 325 Mg Tablet PO 11/02/24 05:30 Q6H PRN Fever >100.3 or pain 1-3 Albuterol/Ipratropium 3 ml 10/03/24 05:51 10/03/24 19:13 Albuterol/Ipratropium (Duoneb) Rt Cielo 3 Ml Nebu INH 11/02/24 05:50 3 ml Q2HR PRN Administration SHORTNESS OF BREATH OR WHEEZE Doxycycline Hyclate 100 mg 10/06/24 10:30 10/07/24 08:58 Doxycycline 100 Mg Tablet PO 10/13/24 10:29 100 mg BID RAD Administration Enoxaparin Sodium 60 mg 10/05/24 21:00 10/07/24 08:57 Enoxaparin Sod Inj 60 Mg/0.6 Ml Syringe SC 10/17/24 08:59 60 mg Q12HR RAD Administration Hydrochlorothiazide 25 mg 10/06/24 15:30 10/07/24 08:57 Hydrochlorothiazide 12.5 Mg Capsule PO 11/05/24 15:29 25 mg QDAY RAD Administration Ceftriaxone Sodium/Dextrose 2 gm in 50 mls @ 100 mls/hr 10/07/24 09:00 10/07/24 10:00 Rocephin/D5w 2gm IV 10/13/24 10:15 100 mls/hr QDAY RAD Administration Losartan Potassium 100 mg 10/07/24 09:00 10/07/24 08:56 Losartan Potassium 25 Mg Tablet PO 11/06/24 08:59 100 mg QDAY RAD Administration Ondansetron HCl 4 mg 10/03/24 05:31 Ondansetron Inj 2 Mg/Ml Inj 2 Ml IV 11/02/24 05:30 Q6H PRN NAUSEA OR VOMITING Protocol Oxycodone/Acetaminophen 1 tab 10/03/24 05:31 10/07/24 08:57 Oxycodone/Apap 5/325 Tablet PO 10/08/24 05:30 1 tab Q6H PRN Administration PAIN SCALE 4-6 (Moderate Potassium Phos/Sodium Phos 1 packet 10/03/24 09:00 10/07/24 08:56 [facility] Mbdb 1 Packet (1.5 Gm) PO 11/02/24 08:59 1 packet BID RAD Administration Sennosides 1 tab 10/03/24 05:31 Senna Tablet PO 11/02/24 05:30 QDAY PRN constipation Protocol Plan Mr Ahmadi is a 44-year-old male with a previous medical history of hypertension and morbid obesity who was brought in by ambulance due to fever, chills and shortness of breath. He reports that this started a few days ago. Patient is going to be admitted for sepsis secondary to community-acquired pneumonia treatment and management. 1. Sepsis secondary to 2. Bacteremia - resolved 3. LT LE Cellulitis in the setting of 4. Chronic venous insufficiency On admission patient reported with fever, chills, shortness of breath. In the ED was found with a fever of 105.3 with tachypnea and leukocytosis. X-ray suspicious for pneumonia however study was poor due to body habitus and on repeat CT no signs of pneumonia were found. Patient on admission was found with an uptrending lactic acid however now downtrending no need to further trend. Patient reports significant amount of sick contacts at work. Patient had right lower quadrant tenderness on exam. Liver ultrasound and soft tissue ultrasound of abdomen did not show acute pathology, unable to visualize gallbladder. Patient has area of erythema and tenderness with induration to left medial thigh, appears to be cellulitis patient clinical exam. - Patient has bilateral non-pitting non-painful edema with induration and dry skin. Stable. - Blood cultures +2/2 for GPC bacteria, Streptococcus ? Sputum cultures : negative ? Repeat blood cultures : negative in 24 hours ? Continue IV Ceftriaxone 1g -> 2g qD (10/05 - ? PO Doxycyline 100mg twice daily (10/06 - ? ID consulted, appreciate recommendations - Wound care ordered 5. MARCO? resolved Creatinine 1.2 on admission, in 2021 was 0.8. Patient also has elevated lactic acidosis, suspect prerenal MARCO due to dehydration. - monitor daily CMP - avoid nephrotoxic agents 6. Diverticulitis Patient received CT C/A/P, diagnostic utility limited due to poor penetration. No pneumonia seen, but did show diverticulitis, patient has minimal symptoms and is covered with antibiotics as above. ? On antibiotics 7. Primary Hypertension Patient reports taking metoprolol at home. Initial blood pressure reading was 236/78, but it was taken right after he moved to the [facility], after that blood pressure was normal. Patient reports that it is easier for him to breathe when he sits up. Echo showed ejection fraction 55-60% - Continue HCTZ 25mg qD - Stopped Lisinopril, given cough symptoms - Started Losartan 100mg qD 8. Morbid obesity , BMI >40 9. Obesity hypoventialtion / FAN Patient reports that he has been approved for bariatric surgery. Chart review shows that he has a prescription for the Ozempic. Patient reports that he's snoring and night. He did not have sleep study before. - CPAP HS PRN, however not tolerating due to claustrophobia ? Consider switching to tirzepatide outpatient Healthcare management: Dispo: telemetry. Observe for 24 hours with leg elevation and IV abs Diet: cardiac DVT prophylaxis: lovenox 40 mg sc GI prophylaxis: none CODE STATUS: Full code Plan of care discussed with attending Scooter Zhang M.D. PGY2 Disclaimer: This note was dictated by speech recognition. Minor errors in aerobics teacher may be present due to voice recognition software.
[2024-10-07] MEDS: guaiFENesin/DM TABLET 1 EACH PO (15:12)
[2024-10-07] MEDS: ACETAMINOPHEN 325 MG TABLET 1000 MG PO (19:09)
[2024-10-08] VITALS (8 sets, daily range): BP systolic 113–166; BP diastolic 68–94; PULSE 63–85; RESP 16–22; TEMP 36.2–36.7; O2SAT 96–98; BMI 73.7
--- NOTE | 2024-10-08 02:31 | PC.NURSE ---
Patient is noted to be short of breath on exertion but in no distress. Nurse has been notified multiple times that patients O2 sats down at 70-80 % on room air. When oxygen place at 3 L/min the patients O2 sats comes up quickly to 95%. Will monitor further.
[2024-10-08] MEDS: oxyCODONE/APAP 5/325 TABLET 1 TAB PO ×2 (04:32→10:47)
[2024-10-08 06:55] LABS: Basophils % (Auto) 0 % (0-2.5); Eosinophils % (Auto) 0 % (0-10); Hemoglobin 9.8 g/dL (13.5-16.0); Immature Granulocytes % (Auto) 8 % (0-0); Immature Granulocytes Auto 0.82 Thou/mm3 (0.00-0.00); Lymphocytes # (Auto) 1.4 Thou/mm3 (1.0-4.8); Lymphocytes % (Auto) 13 % (10-50); Mean Corpuscular HGB Conc 33.8 g/dl (31.0-37.0); Mean Corpuscular Volume 92 fL (80-100); Monocytes # (Auto) 1.3 Thou/mm3 (0.0-0.8); Monocytes % (Auto) 12 % (0-12); Neutrophils # (Auto) 7.4 Thou/mm3 (1.8-7.7); Neutrophils % (Auto) 67 % (37-80); Nucleated Red Blood Cell % 0 /100 WBC (0); Platelet Count 194 Thou/mm3 (140-440); RDW Standard Deviation 44.2 fL (35.1-43.9); Red Blood Count 3.16 Miln/mm3 (4.50-5.90)
[2024-10-08 07:42] LABS: Alanine Aminotransferase 76 U/L (10-49); Albumin, Serum 3.4 gm/dL (3.5-5.0); Albumin/Globulin Ratio 1.2 (1.2-2.2); Alkaline Phosphatase 42 U/L (46-116); Anion Gap 10 (7-16); Aspartate Amino Transferase 56 U/L (0-34); BUN/Creatinine Ratio 27 Ratio (12-20); Bilirubin,Total 0.4 mg/dL (0.3-1.2); Blood Urea Nitrogen 27 mg/dL (9-23); Calcium 7.9 mg/dL (8.3-10.6); Calcium (Corrected) 8.4 mg/dL (8.5-10.1); Carbon Dioxide 26.7 mMol/L (20.0-31.0); Chloride 101 mMol/L (98-107); Estimated Creatinine Clearance 202.7 mL/min (>60); Globulin 2.9 gm/dL (2.3-3.5); Glucose 102 mg/dL (74-106); Magnesium 1.7 mg/dL (1.6-2.6); Osmolality,Calculated 280 (275-295); Phosphorous 3.2 mg/dL (2.4-5.1); Potassium 3.9 mMol/L (3.4-5.1); Sodium 138 mMol/L (136-145); Total Protein 6.3 gm/dL (5.7-8.2); eGFR > 60 See Note
[2024-10-08] MEDS: NAPH,KPH MBDB 1 PACKET (1.5 GM) PO (08:12)
[2024-10-08] MEDS: ENOXAPARIN SOD INJ 60 MG/0.6 ML SYRINGE SC (08:12)
[2024-10-08] MEDS: DOXYCYCLINE 100 MG TABLET PO (08:12)
[2024-10-08] MEDS: hydroCHLOROthiazide 12.5 MG CAPSULE 25 MG PO (08:12)
[2024-10-08] MEDS: LOSARTAN POTASSIUM 25 MG TABLET 100 MG PO (08:13)
[2024-10-08] MEDS: CALCIUM CARBONATE 600 MG TABLET PO (08:23)
[2024-10-08] MEDS: cefTRIAXone/D5w 2gm 2 GM/50 ML BAG IV (09:29)
--- NOTE | 2024-10-08 11:53 | ESDS_ITS ---
<Statement entered by Kiel Bagely MD - 10/23/24 14:10> I reviewed above note and agree with findings and plans. I have also personally examined the patient with medicine team and went over assessment and plan with medical team including internal medicine nurse and resident physician. Planned Discharge Date 10/08/24 DS: Providers Provider Date of admission: 10/03/24 05:31 Primary care physician: Júnior Hudson PA-C Admitting Provider: Kaia Lance MD Attending Provider on Admission: Tiffanie Stockton DO Consults: 10/03/24 09:44 Referral Physical Therapy Routine Comment: Physician Instructions: 10/06/24 13:45 Consult to Infectious Diseases Stat Comment: Consulting Provider: Tommy Salomon 10/07/24 15:31 Referral Wound Care Routine Comment: Attending Provider on DC: Kiel Bagley MD Discharging Provider: Scooter Mcarthur MD DS: Diagnosis Problem List Completed Was Problem List Reviewed/Reconciled?: Yes Hospital Course Hospital Course Hospital course: Hospital Course: Mr Ahmadi is a 44-year-old male with a previous medical history of hypertension and morbid obesity who was brought in by ambulance due to fever, chills and shortness of breath. He was admitted for sepsis secondary to community-acquired pneumonia and LT LE cellulitis. Patient was treated with IV ceftriaxone and doxycycline inpatient. Pneumonia resolved during hospitalization, oxygen saturations are in the normal range. Cellulitis continues to improve slowly. He will need to continue course until completion. Patient is scheduled for bariatric surgery evaluation outpatient, however was counseled extensively and will start GLP-1 treatment on discharge. Patient is otherwise at baseline, not in any pain at the time of discharge, and anxious to return home. He was advised to to return to the ED with strict instructions in case cellulitis worsens. Close follow-up with PCP is advised. Problems on this admission: 1. Sepsis - resolved 2. Bacteremia - resolved 3. LT LE Cellulitis 4. Chronic venous insufficiency 5. MARCO? resolved 6. Diverticulitis 7. Primary Hypertension 8. Morbid obesity , BMI >40 9. Obesity hypoventialtion / FAN Procedures: None Discharge instructions: - Follow up with primary physician within 1 week of discharge. If you dont have a PCP please call: for an appointment at [facility] - You have been prescribed antibiotics: Doxycycline twice a day x 14 days + Augmentin twice a day x 14 days . Please take as prescribed - You may start taking Rybelsus 3mg daily to help with weight loss. Please follow up with PCP. - Please continue all other home medications - Take Tylenol for pain. Ibuprofen has been discontinued, use Celecoxib as needed for added pain control. - Should any symptoms recur or worsen please return to the ED. We are grateful to be able to participate in Mr Mary's care. We wish him the best. - Scooter Mcarthur MD Status at Discharge Cognitive/behavioral status at discharge: stable and actively returning to baseline. Time Spent with Patient Time attestation: Total time spent providing and/or coordinating discharge services: more than 50% Time spent: Greater than 30 minutes Exam Vital Signs Temp Pulse Resp BP Pulse Ox O2 Del Method O2 Flow Rate 97.8 F 80 21 H 128/77 97 Nasal Cannula 2 10/08/24 08:00 10/08/24 08:13 10/08/24 08:00 10/08/24 08:13 10/08/24 08:00 10/08/24 04:22 10/08/24 04:22 FiO2 30 10/07/24 04:00 Narrative Exam Constitutional Alert, oriented x3. Morbidly obese. HEENT Vision grossly intact. Patent nares. Trachea midline. Respiratory Chest normal on inspection and clear to auscultation bilaterally. Cardiovascular S1 and S2 audible, RRR. No murmurs or carotid bruit. No gross JVD. Abdominal Soft and non tender to palpation in all quadrants. BS + Genitourinary No bladder tenderness, no flank pain. Normal to palpation. Musculoskeletal LT LE erythema- reduced from initial demarcation. Swelling 3+ with CVI skin changes. Pedal pulses present B/L Neurological CN II - XII grossly intact. Extremity motor and sensation grossly intact. Skin Warm, dry and intact. No apparent lesions. Psychiatric Patient has a good affect, is cooperative but anxious to go home. Discharge Plan Plan Patient Disposition: HOME (Self Care) Patient condition on transfer: Stable Care Plan Goals: - Follow up with primary physician within 1 week of discharge. If you dont have a PCP please call: for an appointment at [facility] - You have been prescribed antibiotics: Doxycycline twice a day x 14 days + Augmentin twice a day x 14 days . Please take as prescribed - You may start taking Rybelsus 3mg daily to help with weight loss. Please follow up with PCP. - Please continue all other home medications - Take Tylenol for pain. Ibuprofen has been discontinued, use Celecoxib as needed for added pain control. - Should any symptoms recur or worsen please return to the ED. Prescriptions/Referrals Prescriptions/Med Rec: New doxycycline monohydrate 100 mg capsule 100 mg PO BID 14 Days Qty: 28 0RF amoxicillin-pot clavulanate 500-125 mg tablet 1 tab PO BID 14 Days Qty: 28 0RF Rybelsus 3 mg tablet 3 mg PO QDAY 30 Days Qty: 30 1RF celecoxib [Celebrex] 100 mg capsule 100 mg PO BID PRN (Reason: pain) Qty: 30 0RF Continued furosemide 40 mg tablet 40 mg PO QDAY lisinopril-hydrochlorothiazide 20-25 mg tablet 1 mg PO QDAY acetaminophen 500 mg tablet 500 mg PO BID metoprolol succinate 100 mg tablet extended release 24 hr 100 mg PO DAILY Discontinued diclofenac potassium 50 mg tablet 50 mg PO BID PRN (Reason: pain) Referrals: Júnior Hudson PA-C [Primary Care Provider] - Patient/Caregiver Discharge Instructions Discharge Activity: resume usual activities Education Materials: Obesity and Its Impact on Health, Wound Infection Tx, Discharge Instructions for Cellulitis Print Language: Turkmen Stand Alone Forms: Sarai Award Info., Patient Portal Info Letter Discharge Order Discharge Orders: Discharge (Routine); Ordered 10/08/24 Ordered By: Scooter Mcarthur Quality Discharge Quality Measures VTE prophylaxis
== END 2024-10-08 12:55 | disposition home or self-care (01) | DRG 871 ==
LOC: SERX 04:50 → SERHOLD 05:54 → S2NX 08:30 → S3SX 10-08 04:10
PROVIDERS: Student in an Organized Health Care Education/Training Program; Admitting Provider Student in an Organized Health Care Education/Training Program; Emergency Provider Emergency Medicine; PCP Physician Assistant; Visit Provider Internal Medicine
DX: A40.8 Other streptococcal sepsis (principal); J18.9 Pneumonia, unspecified organism; Z68.45 Body mass index [BMI] 70 or greater, adult; E87.1 Hypo-osmolality and hyponatremia; E87.20 Acidosis, unspecified; N17.9 Acute kidney failure, unspecified; L03.116 Cellulitis of left lower limb; K57.32 Diverticulitis of large intestine without perforation or abscess without bleeding; E66.01 Morbid (severe) obesity due to excess calories; I87.2 Venous insufficiency (chronic) (peripheral); N18.9 Chronic kidney disease, unspecified; I12.9 Hypertensive chronic kidney disease with stage 1 through stage 4 chronic kidney disease, or unspecified chronic kidney disease; E78.5 Hyperlipidemia, unspecified; G47.33 Obstructive sleep apnea (adult) (pediatric); F40.240 Claustrophobia; T88.4XXA Failed or difficult intubation, initial encounter
CPT/HCPCS: 36415; 71045; 71250; 74176; 76705; 80053; 80069; 80202; 81001; 83605; 83735; 83880; 84100; 84145; 84443; 84484; 85025; 85379; 87040; 87077; 87081; 87186; 87205; 87400; 87811; 93005; 93306; 93971; 94640; 94660; 94664; 96365; 96366; 96367; 96375; 97161; 99291; A9270; J0131; J0456; J0696; J1650; J1885; J2543; J3370; J3475; J7030; J7040; J7050; J7120; S0077; J0736

== ENCOUNTER 2024-10-19 14:51 | Inpatient (IN) | payer OTHER, MEDICAID, SELFPAY ==
[2024-10-19] VITALS (17 sets, daily range): BP systolic 100–135; BP diastolic 38–85; PULSE 80–122; RESP 17–28; TEMP 36.1–36.9; O2SAT 2–100; BMI 73.2
--- NOTE | 2024-10-19 14:56 | EKG_ITS ---
[facility] Test Date: 2024-10-19 Pat Name: AVTAR LEBLANC Department: Room: - Gender: Male Transformation Manager: : 1980 Requested By: ED Temporary Provider Order Number: [id number] Reading MD: ED Temporary Provider Measurements Intervals Napoleon Rate: 100 P: 22 NM: 149 QRS: 18 QRSD: 90 T: 59 QT: 338 QTc: 438 Interpretive Statements SINUS TACHYCARDIA ABNORMAL RHYTHM ECG Compared to ECG 10/08/2019 10:19:13 Sinus rhythm no longer present Sinus arrhythmia no longer present /[id number]/[id number].pdf
--- NOTE | 2024-10-19 15:16 | PD.EDRME ---
Rapid Medical Screening Exam RME Arrival date/time: 10/19/24 14:51 44-year-old male with a history of hypertension, congestive heart failure presents to the emergency room with a chief complaint of shortness of breath and difficulty breathing x 1 day I have greeted and performed a focused initial assessment of this patient. A comprehensive ED assessment and evaluation of the patient, analysis of all test results, and completion of the medical decision making process will be conducted by additional ED providers. Chief Complaint: Shortness of Breath/Dyspnea Time Seen by Provider: 10/19/24 15:00 Vital signs: Vital Signs Temperature 97.4 F 10/19/24 15:04 Pulse Rate 98 10/19/24 15:04 Respiratory Rate 26 H 10/19/24 15:04 Blood Pressure 110/65 10/19/24 15:04 Pulse Oximetry (%) 95 10/19/24 15:04 Oxygen Delivery Method Room Air 10/19/24 15:04 Vital signs reviewed by provider: Yes
[2024-10-19 16:04] LABS: Basophils # (Auto) 0.1 Thou/mm3 (0.0-0.2); Basophils % (Auto) 0 % (0-2.5); Eosinophils % (Auto) 0 % (0-10); Immature Granulocytes % (Auto) 10 % (0-0); Immature Granulocytes Auto 2.43 Thou/mm3 (0.00-0.00); Lymphocytes # (Auto) 3.5 Thou/mm3 (1.0-4.8); Lymphocytes % (Auto) 15 % (10-50); Mean Corpuscular HGB Conc 32.7 g/dl (31.0-37.0); Mean Corpuscular Hemoglobin 31.1 pg (25.0-35.0); Mean Corpuscular Volume 95 fL (80-100); Monocytes % (Auto) 4 % (0-12); Neutrophils # (Auto) 17.2 Thou/mm3 (1.8-7.7); Neutrophils % (Auto) 71 % (37-80); Nucleated Red Blood Cell % 2 /100 WBC (0); Platelet Count 545 Thou/mm3 (140-440); RDW Standard Deviation 47.2 fL (35.1-43.9); Red Blood Count 1.67 Miln/mm3 (4.50-5.90); White Blood Count 24.1 Thou/mm3 (3.8-10.6)
[2024-10-19 16:10] LABS: Hematocrit 15.9 % (41.0-53.0); Hemoglobin 5.2 g/dL (13.5-16.0)
[2024-10-19 16:15] LABS: INR 1.1 (0.9-1.3); Partial Thromboplastin Time 21.3 Seconds (22.0-36.0); Prothrombin Time 12.4 Seconds (9.0-12.2)
--- NOTE | 2024-10-19 16:15 | XR_ITS ---
Examination: AP chest single view TECHNIQUE: AP portable semiupright chest single view Date and time: October 19, 2024 1626 hours Comparison October 03, 2024 INDICATIONS: Shortness of breath today. FINDINGS: Suspicious for early bibasilar pneumonia Mild prominence left ventricle. Mild vascular congestion. Mild osteopenia IMPRESSION: Suspicious for early bibasilar pneumonia
[2024-10-19 16:18] LABS: B-Type Natriuretic Peptide < 20 pg/mL (0-100)
[2024-10-19 16:19] LABS: Alanine Aminotransferase 70 U/L (10-49); Albumin/Globulin Ratio 0.9 (1.2-2.2); Alkaline Phosphatase 41 U/L (46-116); Anion Gap 13 (7-16); Aspartate Amino Transferase 26 U/L (0-34); BUN/Creatinine Ratio 56 Ratio (12-20); Bilirubin,Total 0.2 mg/dL (0.3-1.2); Blood Urea Nitrogen 95 mg/dL (9-23); Calcium 8.1 mg/dL (8.3-10.6); Calcium (Corrected) 8.9 mg/dL (8.5-10.1); Carbon Dioxide 19.5 mMol/L (20.0-31.0); Chloride 104 mMol/L (98-107); Creatinine (Component) 1.7 mg/dL (0.6-1.3); Estimated Creatinine Clearance 115.4 mL/min (>60); Globulin 3.2 gm/dL (2.3-3.5); Glucose 138 mg/dL (74-106); Magnesium 1.6 mg/dL (1.6-2.6); Osmolality,Calculated 303 (275-295); Potassium 5.6 mMol/L (3.4-5.1); Sodium 136 mMol/L (136-145); Total Protein 6.2 gm/dL (5.7-8.2); Troponin I < 0.020 ng/mL (0.0-0.045); eGFR 50 See Note
--- NOTE | 2024-10-19 16:39 | EDNOTE_ITS ---
ED SOB =RME/HPI General Chief Complaint: Shortness of Breath/Dyspnea Stated Complaint: Shortness of breath, dizziness, and chest pain Time Seen by Provider: 10/19/24 15:00 Arrival date/time: 10/19/24 14:51 RME / HPI RME / HPI Narrative: 10/19/24 14:51 44-year-old male with a history of hypertension, congestive heart failure presents to the emergency room with a chief complaint of shortness of breath and difficulty breathing x 1 day I have greeted and performed a focused initial assessment of this patient. A comprehensive ED assessment and evaluation of the patient, analysis of all test results, and completion of the medical decision making process will be conducted by additional ED providers. DR. TAVARES MAIN ED EVALUATION 44 year old male with a history of hypertension and morbid obesity, recently hos pitalized from 10/03/24 to 10/08/24 for sepsis secondary to pneumonia and left lower extremity cellulitis, presents to the ED with shortness of breath that began yesterday. He describes the sensation as feeling like he is not getting enough air. No known relieving factors at home. Additionally, since discharge 11 days ago, he has noticed loose black stools (~ 2x's a day), which he has not experienced in the past. He denies any associated symptoms such as chest pain, palpitations, dizziness, abdominal pain, nausea, or vomiting. Related Data Home Medications ?Medication ?Instructions ?Recorded ?Confirmed furosemide 40 mg tablet 40 mg PO QDAY 10/08/1910/03 lisinopril 20 1 mg PO QDAY 10/08/19 mg-hydrochlorothiazide 25 mg tablet acetaminophen 500 mg tablet 500 mg PO BID pain 5 10/03/24 metoprolol succinate 100 mg 100 mg PO DAILY 10/03/24 0 10/03/24 tablet,extended release 24 hr Previous Rx's ?Medication ?Instructions ?Recorded amoxicillin 500 mg-potassium 1 tab PO BID 2 weeks #28 tabs 10/08/24 clavulanate 125 mg tablet celecoxib 100 mg capsule (Celebrex) 100 mg PO BID PRN pain #30 caps 10/08/24 doxycycline monohydrate 100 mg 100 mg PO BID 2 weeks # 28 caps 10/08/24 capsule semaglutide 3 mg tablet (Rybelsus) 3 mg PO QDAY 30 day s #30 tabs 10/08/24 Allergies Allergy/AdvReac Type Severity Reaction Status Date / Time No Known Allergies Allergy Verified 10/19/24 14:54 Review of Systems Review of Systems Narrative Review of Systems: GEN: No fever, no chills, no weight loss EYES: No discharge, no visual changes, no pain HEENT: No ear pain, no congestion, no sore throat PULM: +shortness of breath, no cough CV: No chest pain, no palpitations GI: No nausea, no vomiting, no pain, no constipation, +loose black stools : No frequency, no urgency, no dysuria MUSC/SKEL: No joint pain, no back pain SKIN: No rash PSYCH: No hallucinations, no depression HEME/LYMPH: No easy bleeding or bruising tendencies NEURO: No weakness, no headache Past Medical History Past Medical History CARDIAC: Positive Hypertension; Negative Cardiac Disorders or Congestive Heart Failure RESPIRATORY: Positive Asthma (SOB); Negative Chronic Obstructive Pulmonary Disease (COPD) GASTROINTESTINAL: Positive Obesity GENITOURINARY: Negative Renal Disease ENDOCRINE: Negative Diabetes Mellitus Type 1 or Diabetes Mellitus Type 2 HEMATOLOGIC: Negative Sickle Cell Disease Family History FAMILY HISTORY: Negative Family Cancer Social History SMOKING STATUS: Never smoker SUBSTANCE USE: marijuana ED Exam Narrative Physical exam: GENERAL APPEARANCE: alert and oriented x 4, well-developed, well-nourished, pale, mildly diaphoretic, tachypneic HEENT: Normocephalic, atraumatic; pupils equal, round, reactive to light; EOMI; mucous membranes pink, moist; oropharynx clear NECK: Supple LUNGS: Tachypneic; CTABL; no wheezes, no rales, no rhonchi HEART: Tachycardic; normal S1, S2; no murmurs ABDOMEN: non distended; normal BS; soft, no tenderness, no guarding, no rebound; no masses, no organomegaly, no hernia BACK: no CVA tenderness EXTREMITIES: atraumatic; no edema NEUROLOGIC: awake; alert and oriented x4; cranial nerves II-XII grossly intact; no focal sensory or motor deficits PSYCHIATRIC: appropriate mood and affect SKIN: warm, mildly diaphoretic, pale; no rashes Course Quality Measures none Orders Category Date Time Status Patient Condition Routine Admission 10/19/24 17:27 Ordered Bedside Blood Glucose Q2HX3 Care 10/19/24 17:17 Active EKG (ED ONLY) *Do not use* NOW Care 10/19/24 14:56 Completed Notify provider NEEDED Care 10/19/24 17:27 Active Transfuse,blood/blood products NOW Care 10/19/24 16:11 Active Consult to Gastroenterology Stat Cons 10/19/24 16:55 Ordered EKG (ED Only) Stat Exams 10/19/24 14:56 Draft XR chest 1V Stat Exams 10/19/24 16:15 Completed B-Type Natriuretic Peptide Stat Lab 10/19/24 15:53 Completed BMP [Basic Metabolic Panel] Stat Lab 10/19/24 19:00 Ordered CBC Stat Lab 10/19/24 15:53 Completed Comprehensive Metabolic Panel Stat Lab 10/19/24 15:53 Completed Drug Screen,Urine Stat Lab 10/19/24 15:15 Ordered Lactate (Lactic Acid) Stat Lab 10/19/24 17:07 Results Magnesium Stat Lab 10/19/24 15:53 Completed Partial Thromboplastin Time Stat Lab 10/19/24 15:53 Completed Procalcitonin Stat Lab 10/19/24 17:07 Completed Prothrombin Time with INR Stat Lab 10/19/24 15:53 Completed Red Blood Cells Stat Lab 10/19/24 16:22 Results Troponin I Stat Lab 10/19/24 15:53 Completed Type and Screen Stat Lab 10/19/24 16:22 Results Urinalysis Stat Lab 10/19/24 15:15 Ordered VBG [Venous Blood Gas] Stat Lab 10/19/24 17:07 Completed Calcium Gluconate 10% Inj Med 10/19/24 16:39 Discontinued 1 gm IV X1 ONE Dextrose 10%-Water 1000 ml [D10w 1000 ml] 1,000 ml Med 10/19/24 17:30 Discontinued IV 100 mls/hr Dextrose 10%-Water 1000 ml [D10w 1000 ml] 1,000 ml Med 10/19/24 17:30 Active IV 50 mls/hr Dextrose 50% Syr [D50w Syringe Abboject] Med 10/19/24 17:17 Discontinued 100 ml IV X1 ONE Dextrose 50% Syr [D50w Syringe Abboject] Med 10/19/24 17:17 Active 25 ml IV Q15MIN PRN Dextrose 50% Syr [D50w Syringe Abboject] Med 10/19/24 17:17 Active 50 ml IV Q15MIN PRN Glucagon Inj Med 10/19/24 17:17 Active 1 mg IM Q15MIN PRN Insulin Regular Med 10/19/24 17:17 Discontinued 5 unit IV X1 ONE Pantoprazole/Ns 80Mg IV Premix [Protonix/NS 80mg IV Med 10/19/24 16:34 Active Premix] 80 mg in 100 ml IV X1 Pantoprazole/Ns 80Mg IV Premix [Protonix/NS 80mg IV Med 10/19/24 16:34 Discontinued Premix] 80 mg in 100 ml IV X1 Piper/Tazo 3.375 gm Premix [Zosyn] Med 10/19/24 16:35 Discontinued 3.375 gm in 50 ml IV X1 Sodium Chloride 0.9% 1000 ml [Ns] 1,000 ml Med 10/19/24 17:16 Active IV 999 mls/hr Code Status Routine Oth 10/19/24 17:27 Ordered Vital Signs Vital signs: Vital Signs Temperature 97.4 F 10/19/24 15:04 Pulse Rate 98 10/19/24 15:04 Respiratory Rate 26 H 10/19/24 15:04 Blood Pressure 110/65 10/19/24 15:04 Pulse Oximetry (%) 95 10/19/24 15:04 Oxygen Delivery Method Room Air 10/19/24 15:04 Pulse ox is 95% on room air which is adequate. Shortness of Breath / Dyspnea MDM Narrative MDM Narrative:: Sade Shah am scribing for and in the presence of Dr. Tavares. Patient data External records reviewed:: [facility], [place] previous records (I reviewed admission from 10/03-10/08/24. I reviewed echocardiogram performed 10/04/24) Clinical information provided by:: patient Social determinants that could affect healthcare access:: none Patient has the following chronic illnesses:: hypertension and morbid obesity recent hospitalization for sepsis 2/2 cellulitis and pneumonia How is presenting disease/condition affected by chronic disease/condition?: exacerbated by Evaluation data The following diagnostics were reviewed and interpreted by me:: lab results, radiology exam(s) and EKG tracing(s) (EKG at 15:02. Sinus tachycardia, rate 100, normal axis, normal intervals, no acute ischemic changes. ) Lab and/or radiology exams considered but not ordered:: None Interpretation Summary: Ordering Physician: Abrea,Crisjun HYDRAULIC STRAINER OPERATOR Date of Service: 10/19/24 Procedure(s): XR chest 1V Accession Number(s): [id number] cc: Morales Berg HYDRAULIC STRAINER OPERATOR; Rickey Esquivel MD; Júnior Hudson PA-C~ Examination: AP chest single view TECHNIQUE: AP portable semiupright chest single view Date and time: October 19, 2024 1626 hours Comparison October 03, 2024 INDICATIONS: Shortness of breath today. FINDINGS: Suspicious for early bibasilar pneumonia Mild prominence left ventricle. Mild vascular congestion. Mild osteopenia IMPRESSION: Suspicious for early bibasilar pneumonia Dictated By: Rickey Esquivel MD Signed By: <Electronically signed by Rickey Esquivel MD in OV> 10/19/24 1716 Medications / Prescriptions Medications or Prescriptions considered but not ordered:: None Medication administrations:: Medication Administration History Dextrose (Dextrose 50%-Water Inj 50 Ml Syringe) 25 ml IV Q15MIN PRN PRN Reason: BG 50-70 responsive npo pt Stop: 11/18/24 17:16 Dextrose (Dextrose 50%-Water Inj 50 Ml Syringe) 50 ml IV Q15MIN PRN PRN Reason: BG <50 OR BG <70 & pt unresponsive Stop: 11/18/24 17:16 Glucagon (Glucagon Inj 1 Mg Vial) 1 mg IM Q15MIN PRN PRN Reason: BG <70, and no IV access Pantoprazole Sodium (Protonix/Ns 80mg Iv Premix) 80 mg in 100 mls @ 10 mls/hr IV X1 ONE Stop: 10/20/24 02:33 Sodium Chloride (Ns) 1,000 mls @ 999 mls/hr IV .Q1H1M ONE Stop: 10/19/24 18:16 Dextrose (D10w 1000 Ml) 1,000 mls @ 50 mls/hr IV .Q20H RAD Stop: 10/20/24 03:29 Discontinued Medications Calcium Gluconate (Calcium Gluconate 10% Inj 1 Gm/10 Ml Vial) 1 gm IV X1 ONE Stop: 10/19/24 16:40 Last Admin: 10/19/24 17:03 Dose: 1 gm Documented By: GM Dextrose (Dextrose 50%-Water Inj 50 Ml Syringe) 100 ml IV X1 ONE Stop: 10/19/24 17:18 Pantoprazole Sodium (Protonix/Ns 80mg Iv Premix) 80 mg in 100 mls @ 400 mls/hr IV X1 ONE Stop: 10/19/24 16:48 Last Infusion: 10/19/24 17:25 Dose: Infused Documented By: Admin: 10/19/24 17:07 Dose: 400 mls/hr Documented By: GM Piperacillin/Tazobactam/Dextrose (Zosyn) 3.375 gm in 50 mls @ 100 mls/hr IV X1 ONE Stop: 10/19/24 17:04 Last Admin: 10/19/24 17:09 Dose: 100 mls/hr Documented By: GM Dextrose (D10w 1000 Ml) 1,000 mls @ 100 mls/hr IV .Q10H RAD Stop: 10/20/24 03:29 Insulin Human Regular (Insulin Hum Regular 1 Unit/0.01 Ml (Per Unit)) 5 unit IV X1 ONE Stop: 10/19/24 17:18 See above Consultations Consultation(s) initiated? (list below): Yes Consultation #1 (Physician, Specialty, Details): I spoke with resident working with Dr. Rocha. Discussed patients PMHx, HPI, ED course, exam findings, labs, and radiology results. The hospitalist agree to accept the patient for admission. Time: 16:49 Consultation #2 (Physician, Specialty, Details): I spoke with GI Dr. Smith. Made aware of the patient?s HPI, PMHx, lab and radiology results. Treatment plan was discussed. Agrees to consult. Time: 16:53 Diagnosis Shortness of Breath Differential Diagnosis: acute exacerbation of chronic obstructive airways disease, congestive heart failure, community acquired pneumonia, asthma with exacerbation and pulmonary embolism Most likely diagnosis given after review of the tests above:: Upper GI bleed symptomatic anemia Admission Indicated Admission indicated?: indicated Admission Request Was there a request for admission?: Yes Admission Attestation Admission request attestation: Discussed case with [] from Hospitalist service regarding admission. Discussed patients ED course, exam findings, labs, and radiology results. The Hospitalist [agrees,declines] to accept the patient for admission. Disposition Plan Disposition Plan: Admit Critical Care Time Critical Care Time Critical Care Time: Yes Total Critical Care Time (min.): 35 Attestation: The high probability of sudden, clinically significant deterioration in the patient's condition required the highest level of my preparedness to intervene urgently. The services I provided to this patient were to treat and/or prevent clinically significant deterioration. Services included the following: chart data review, reviewing nursing notes and/or old charts, documentation time, php consultant colla boration regarding findings and treatment options, medication orders and management, direct patient care, vital sign assessments and ordering, interpreting and reviewing diagnostic studies and lab tests. Aggregate critical care time includes only time during which I was engaged in work directly related to the patient's care, as described above, whether at bedside or elsewhere in the Emergency Department. It did not include time spent performing other reported procedures or the services of residents, students, nurses or physician assistants. Discharge Plan Plan Patient Disposition: Admit Acute Care w/in Hospital Prescriptions/Referrals Prescriptions/Med Rec: No Action furosemide 40 mg tablet 40 mg PO QDAY lisinopril-hydrochlorothiazide 20-25 mg tablet 1 mg PO QDAY acetaminophen 500 mg tablet 500 mg PO BID metoprolol succinate 100 mg tablet extended release 24 hr 100 mg PO DAILY doxycycline monohydrate 100 mg capsule 100 mg PO BID 14 Days Qty: 28 0RF amoxicillin-pot clavulanate 500-125 mg tablet 1 tab PO BID 14 Days Qty: 28 0RF Rybelsus 3 mg tablet 3 mg PO QDAY 30 Days Qty: 30 1RF celecoxib [Celebrex] 100 mg capsule 100 mg PO BID PRN (Reason: pain) Qty: 30 0RF Referrals: Júnior Hudson PA-C [Primary Care Provider] - In 1 week Problem List Clinical Impression: Acute upper GI bleed, Symptomatic anemia Patient/Caregiver Discharge Instructions Print Language: Lao Stand Alone Forms: Sarai Award Info., Patient Portal Info Letter
[2024-10-19] MEDS: CALCIUM GLUCONATE 10% INJ 1 GM/10 ML VIAL IV ×2 (17:03→21:27)
[2024-10-19] MEDS: PANTOPRAZOLE/NS 80MG IV PREMIX 80 MG/100 ML BAG 400 MG IV (17:07)
[2024-10-19] MEDS: PIPER/TAZO 3.375 GM PREMIX 3.375 GM/50 ML BAG IV ×2 (17:09→20:19)
[2024-10-19 17:15] LABS: Lactate (Lactic Acid) 3.6 mMol/L (0.4-2.0)
[2024-10-19 17:24] LABS: Base Excess, Venous -4 (-3-3); O2 Saturation, Venous 61 % (96-97); PCO2, Venous 35 mmHg (36-56); PO2, Venous 34 mmHg (15-58); pH, Venous 7.37 (7.33-7.66)
[2024-10-19 17:59] LABS: Potassium 5.8 mMol/L (3.4-5.1)
[2024-10-19] MEDS: PANTOPRAZOLE/NS 80MG IV PREMIX 80 MG/100 ML BAG 10 MG IV (18:10)
[2024-10-19] MEDS: SODIUM CHLORIDE 0.9% 1000 ML 1,000 ML 999 ML IV ×3 (18:19→19:55)
[2024-10-19] MEDS: DEXTROSE 50%-WATER INJ 50 ML SYRINGE 100 ML IV (18:21)
--- NOTE | 2024-10-19 18:25 | ESHP_ITS ---
<Statement entered by Yessica Kern MD - 10/21/24 15:44> Patient was seen and examined at bedside. Agree and assessment and plan of this note - Patient's plan and care discussed with my attending, Dr. Josefina Kern MD Internal Medicine PGY-2 Documentation for date of: 10/19/24 HPI History of Present Illness History of present illness: Nader is a 44 y/o male with PMHx hypertension, severe morbid obesity, chronic venous insufficiency, cellulitis, abscess, chronic lower back pain who comes in for an evaluation of dark tarry stools with associated generalized weakness and fatigue. Patient reports that ever since he was discharged from the hospital in which she was admitted for sepsis and bacteremia, he has been having dark tarry stools. He does note that in the past she has had bright red stool occasionally, however he attributes it to his hemorrhoids. Since the black stools have been happening, he said that he thought it was the antibiotics and did not think much of it. He has never had dark tarry stools in the past. He does endorse that he has been taking Celebrex in addition to his antibiotics. He says that he has been recently approved for bariatric surgery in [place]. He denies coughing up blood or throwing up blood. He denies any fever, chills, chest pain, however he does endorse generalized fatigue and weakness. He says he has been seeing wound care for his left lower leg in which she has it currently bandaged. He has no other complaints at this time ED Course: Patient came to the ED with a temperature of 97.4, heart rate 98, respiratory rate 26, blood pressure 110/65, saturating 95% on room air. He was worked up was found to have a hemoglobin of 5.2, leukocytosis of 24, platelets of 545, sodium of 136, potassium 5.6, bicarb 20, BUN/creatinine of 95 and 1.7 respectively, glucose 138, PT 12.4, PTT 21.3, magnesium 1.6, troponin negative x 1, AST ALT 26 and 70 respectively. Patient had Zosyn given x 1, put on Protonix drip, had 2 PRBCs ordered and was given 1 g of calcium gluconate. GI was consulted who recommended admission. Medicine was consulted and patient admitted to the floors. 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 He says that he uses an occasional THC gummy, however does not smoke weed anymore. He also says that he does not smoke anymore either. He also says that he has no history of other drug use. Review of Systems Review of Systems Narrative Review of Systems: 12 point ROS reviewed and is otherwise negative unless state directly in the HPI Exam Vital Signs Temp Pulse Resp BP Pulse Ox O2 Del Method O2 Flow Rate 98.2 F 97 24 H 100/55 L 100 Nasal Cannula 2 10/19/24 18:13 10/19/24 18:13 10/19/24 18:13 10/19/24 18:13 10/19/24 18:13 10/19/24 18:13 10/19/24 18:13 Narrative Exam General: AAOx3, NAD, severely morbid obese, HEENT: Moist mucous membranes, conjunctiva clear, EOMI, PERRLA, skin tags present around neck, acanthosis nigricans present Cardiovascular: S1, S2, radial pulses +2 bilat, RRR, Pulmonary: Difficulty appreciating breath sounds for this patient, however appreciated some wheezing GI: No tenderness to light or deep palpitation, no guarding, rigidity, rebound tenderness or distension, abdomen is large Extremities: severe venous stasis in RLE, LLE present with dressing, no pitting edema, shoulder tattoo present Neuro: AAOx3, no focal motor or sensory deficits in the UE or LE bilat Psych: Cooperative Results: Labs 10/20/24 04:57 10/20/24 04:57 Labs: Short CBC 10/19/24 Range/Units 15:53 WBC 24.1 H (3.8-10.6) Thou/mm3 Hgb 5.2 L* (13.5-16.0) g/dL Hct 15.9 L* (41.0-53.0) % Plt Count 545 H D (140-440) Thou/mm3 BMP 10/19/24 10/19/24 15:53 17:07 Sodium 136 Potassium 5.6 H 5.8 H Chloride 104 Carbon Dioxide 19.5 L BUN 95 H Creatinine 1.7 H Glucose 138 H Calcium 8.1 L Cardiac Enzymes 10/19/24 Range/Units 15:53 Troponin I < 0.020 (0.0-0.045) ng/mL Liver Function 10/19/24 Range/Units 15:53 Total Bilirubin 0.2 L (0.3-1.2) mg/dL AST 26 (0-34) U/L ALT 70 H (10-49) U/L Alkaline Phosphatase 41 L (46-116) U/L Albumin 3.0 L (3.5-5.0) gm/dL ABG Interpretation ABG results: 10/19/24 17:07 VBG pH 7.37 VBG pCO2 35 L VBG pO2 34 VBG Base Excess -4 L Quality Measures Quality Measures none Medications Home Medications and Allergies Home Medications ?Medication ?Instructions ?Recorded ?Confirmed ?Type furosemide 40 mg tablet 40 mg PO QDAY 10/08/1910/03 History lisinopril 20 1 mg PO QDAY 10/08/19 History mg-hydrochlorothiazide 25 mg tablet acetaminophen 500 mg tablet 500 mg PO BID pain 5 10/03/24 History metoprolol succinate 100 mg 100 mg PO DAILY 10/03/24 0 10/03/24 History tablet,extended release 24 hr Allergies Allergy/AdvReac Type Severity Reaction Status Date / Time No Known Allergies Allergy Verified 10/19/24 14:54 Visit Medications Acetaminophen (Acetaminophen 325 Mg Tablet) 650 mg PO Q6H PRN PRN Reason: Fever >101.5 Stop: 11/18/24 18:13 Albuterol/Ipratropium (Albuterol/Ipratropium (Duoneb) Rt [place] 3 Ml Nebu) 3 ml INH Q6HRRT PRN PRN Reason: wheezing Stop: 11/18/24 18:59 Dextrose (Dextrose 50%-Water Inj 50 Ml Syringe) 25 ml IV Q15MIN PRN PRN Reason: BG 50-70 responsive npo pt Stop: 11/18/24 17:16 Dextrose (Dextrose 50%-Water Inj 50 Ml Syringe) 50 ml IV Q15MIN PRN PRN Reason: BG <50 OR BG <70 & pt unresponsive Stop: 11/18/24 17:16 Glucagon (Glucagon Inj 1 Mg Vial) 1 mg IM Q15MIN PRN PRN Reason: BG <70, and no IV access Pantoprazole Sodium (Protonix/Ns 80mg Iv Premix) 80 mg in 100 mls @ 10 mls/hr IV X1 ONE Stop: 10/20/24 02:33 Last Admin: 10/19/24 18:10 Dose: 10 mls/hr Dextrose (D10w 1000 Ml) 1,000 mls @ 50 mls/hr IV .Q20H RAD Stop: 10/20/24 03:29 Sodium Chloride (Ns) 1,000 mls @ 150 mls/hr IV .Q6H40M RAD Stop: 11/18/24 18:14 Piperacillin/Tazobactam/Dextrose (Zosyn) 3.375 gm in 50 mls @ 12.5 mls/hr IV Q8HR RAD Stop: 10/26/24 21:59 Insulin Human Regular (Insulin Hum Regular 1 Unit/0.01 Ml (Per Unit)) 10 unit IV X1 ONE Stop: 10/19/24 18:24 Ondansetron HCl (Ondansetron Inj 2 Mg/Ml Inj 2 Ml) 4 mg IV Q6H PRN; Protocol PRN Reason: NAUSEA OR VOMITING Stop: 11/18/24 18:13 Discontinued Medications Calcium Gluconate (Calcium Gluconate 10% Inj 1 Gm/10 Ml Vial) 1 gm IV X1 ONE Stop: 10/19/24 16:40 Last Admin: 10/19/24 17:03 Dose: 1 gm Dextrose (Dextrose 50%-Water Inj 50 Ml Syringe) 100 ml IV X1 ONE Stop: 10/19/24 17:18 Pantoprazole Sodium (Protonix/Ns 80mg Iv Premix) 80 mg in 100 mls @ 400 mls/hr IV X1 ONE Stop: 10/19/24 16:48 Last Infusion: 10/19/24 17:25 Dose: Infused Piperacillin/Tazobactam/Dextrose (Zosyn) 3.375 gm in 50 mls @ 100 mls/hr IV X1 ONE Stop: 10/19/24 17:04 Last Infusion: 10/19/24 17:45 Dose: Infused Sodium Chloride (Ns) 1,000 mls @ 999 mls/hr IV .Q1H1M ONE Stop: 10/19/24 18:16 Last Admin: 10/19/24 18:19 Dose: 999 mls/hr Dextrose (D10w 1000 Ml) 1,000 mls @ 100 mls/hr IV .Q10H RAD Stop: 10/20/24 03:29 Insulin Human Regular (Insulin Hum Regular 1 Unit/0.01 Ml (Per Unit)) 5 unit IV X1 ONE Stop: 10/19/24 17:18 Assessment & Plan Plan Assessment Nader is a 44 y/o male with PMHx hypertension, severe morbid obesity, chronic venous insufficiency, cellulitis, abscess, chronic lower back pain who is admitted for GI bleed and acute blood loss anemia. #GI Bleed #Acute blood loss anemia #Symptomatic anemia DDx: GI Bleed, chronic anemia, medication induced Hgb 5.3 on presentation At this point with dark-colored stools, we believe this is a GI bleed, upper in nature Patient was recently discharged on a number of medicines including Celebrex and doxycycline Doxycycline side effect include possible esophagitis, and in combination with Celebrex could be the cause of bleeding at this time FOBT: Not done NSAID use: Celebrex Patient does not use blood thinners Patient's blood pressure continues to drop, patient is at high risk and may need pressure support at some point if patient's blood pressure continues to drop No history of varices, however patient will need additional medicines to control bleeding Patient will have gotten 3 L bolus of fluid and 3 PRBCs Plan: ? GI consulted, appreciate recs ? Trend CBC ? Iron studies panel ? Peripheral blood smear ? Transfusion protocol hemoglobin below 7 ? Avoiding any NSAIDs ? SCDs ? Protonix drip ? Octreotide drip ? Follow-up with hemoglobin after 3 PRBCs #Hypokalemia 5.6 -> 5.8 Plan: ? Regular Insulin 10 units w/ D5 100 cc ? D10, 500 mL one bag ? Hypoglycemic protocol ? Bedside glucose Q2Hx3 ? DuoNeb breathing tx ? Renal Panel 193 ? Telemetry #Acute kidney injury DDx: Prerenal versus ATN versus obstructive Most likely prerenal azotemia, BUN and Cr ~90s and 1.7 respectively Plan: ? NS 150 cc/h after D10 fluids finishes ? Urine Lytes and Cr ? Avoid Nephrotoxic agents ? Renally dose medicines #Chronic venous insufficiency #Cellulitis Patient was recently discharged with bacteremia Patient was given antibiotics upon DC Unsure if patient is septic at this time, however will continue with antibiotic treatment Plan: ? Continue Zosyn 3.375 every 8 hours ? Follow-up blood cultures ? MRSA nares ? Continue wound care #Elevated transaminases Plan: ? Trend with CMP ? Hepatitis panel #Thrombocytopenia Plan: ? Trend with CBC #Morbid obesity Patient has been approved to see bariatric surgery in [place] Was recently prescribed Rybelsus Plan: ? Outpatient workup ? Cardiac stratification #Health Maintenance Disposition: Telemetry DVT prophylaxis: SCDs GI prophylaxis: Protonix Drip Diet: NPO CODE STATUS:Full Patient seen and care discussed with my senior resident, Dr. Kern, and my attending physician, Dr. Josefina Richards, PGY-1 Attending Provider Attestation/Addendum I have examined the patient, reviewed labs and imaging findings, discussed the case with the resident(s), and reviewed entered orders. I agree with the plan of care as outlined in this note, with these additional summaries/recommendations: Patient seen at bedside. After examination of the patient and review of the clinical data I feel that this patient needs admission to the hospital for further treatment/evaluation. Patient will be admitted for GI bleed and acute blood loss anemia. He endorses melena. Hemoglobin on admission 5.2 and hematocrit 15.9. 2 units PRBCs ordered in the ED and we will order posttransfusion H&H and give additional units if needed. Consult gastroenterology, recommendations appreciated. Suspect patient may have developed a gastric ulcer given he has taken NSAIDs. Start IV fluids, IV Protonix, and n.p.o. for now. Avoid all chemical anticoagulation. No evidence of cirrhosis and octreotide not needed at this time. Lactic acidosis elevated likely secondary to GI bleed. Continue IV fluids and follow-up reflex lactic acid. Patient also found to have acute kidney injury and hyperkalemia. Etiology most likely secondary to prerenal azotemia in the setting of GI bleed. Continue fluids and we will repeat renal panel in AM. Potassium elevated to 5.6 and received calcium gluconate in the ED. We will give temporizing measures and repeat potassium level. Patient also noted to have significant leukocytosis and was previously hospitalized with bacteremia and cellulitis. Given the significant increase in WBCs we will continue antibiotics and order blood cultures. Patient has undiagnosed FAN and continue CPAP at night. Patient updated on the plan and agreement. All questions answered to satisfaction. Please see residents note for additional details and management. Dr. Josefina MD
[2024-10-19] MEDS: INSULIN HUM REGULAR 1 UNIT/0.01 ML (PER UNIT) 10 UNIT IV (18:27)
--- NOTE | 2024-10-19 18:38 | EKG_ITS ---
[facility] Test Date: 2024-10-19 Pat Name: AVTAR LEBLANC Department: Room: [facility] Gender: Male [employer]: [facility] : 1980 Requested By: Yessica Kern Order Number: [id number] Reading MD: Yessica Kern Measurements Intervals Dierks Rate: 108 P: 11 MI: 160 QRS: 23 QRSD: 83 T: 62 QT: 340 QTc: 458 Interpretive Statements SINUS TACHYCARDIA ABNORMAL RHYTHM ECG Compared to ECG 10/19/2024 15:02:11 No significant changes /store/S0/[id number]/[id number].pdf
--- NOTE | 2024-10-19 19:27 | PC.NURSE ---
CLARIFIED WITH DR. JOSHUA IF MD WANTED A TOTAL OF 3L OF NS BOLUS; PER DR. JOSHUA, YES, GIVE PT A TOTAL OF 3L OF NS BOLUS.
--- NOTE | 2024-10-19 20:05 | PD.IMCONS ---
HPI Data of Consult Requesting Physician: Chris Rocha MD Primary Care Provider: Júnior Hudson PA-C Consult Narrative Reason for consult: melena, posthemorrhagic anemia History of present illness: 44 years old male presented to the emergency room with dizziness weakness has been having dark melanotic stool for 7 days He also had before some bright red bleeding per rectum His presenting hemoglobin hematocrit 5.2 and 15.9 with a platelet count of 545,000 He does have a history of essential hypertension morbid obesity chronic venous insufficiency cellulitis of the lower extremities and chronic back pain He has been approved for bariatric surgical procedure in [place] cc:: cc: Chris Rocha MD Review of Systems Review of Systems Systems Reviewed: All systems reviewed, normal except as documented Past Medical History Surgical History OTHER SURGICAL HX: As in the history of present illness Meds Home Medications and Allergies Home Medications ?Medication ?Instructions ?Recorded ?Confirmed ?Type furosemide 40 mg tablet 40 mg PO QDAY 10/08/19 10/03/24 History lisinopril 20 1 mg PO QDAY 10/08/19 10/03/24 History mg-hydrochlorothiazide 25 mg tablet acetaminophen 500 mg tablet 500 mg PO BID pain 10/03/24 10/03/24 History metoprolol succinate 100 mg 100 mg PO DAILY 10/03/24 10/03/24 History tablet,extended release 24 hr Allergies Allergy/AdvReac Type Severity Reaction Status Date / Time No Known Allergies Allergy Verified 10/19/24 14:54 Exam Vital Signs Temp Pulse Resp BP Pulse Ox O2 Del Method O2 Flow Rate 98.0 F 88 18 109/40 L 100 Nasal Cannula 2 10/19/24 19:28 10/19/24 19:28 10/19/24 19:28 10/19/24 19:28 10/19/24 19:28 10/19/24 18:56 10/19/24 19:28 Constitutional Comments: Chronically ill-appearing Routine Respiratory Exam Comments: Normal to auscultation Routine Abdominal Exam Comments: Soft nontender Results Labs 10/19/24 15:53 10/19/24 17:07 Labs: Short CBC 10/19/24 Range/Units 15:53 WBC 24.1 H (3.8-10.6) Thou/mm3 Hgb 5.2 L* (13.5-16.0) g/dL Hct 15.9 L* (41.0-53.0) % Plt Count 545 H D (140-440) Thou/mm3 BMP 10/19/24 10/19/24 15:53 17:07 Sodium 136 Potassium 5.6 H 5.8 H Chloride 104 Carbon Dioxide 19.5 L BUN 95 H Creatinine 1.7 H Glucose 138 H Calcium 8.1 L Cardiac Enzymes 10/19/24 Range/Units 15:53 Troponin I < 0.020 (0.0-0.045) ng/mL Liver Function 10/19/24 Range/Units 15:53 Total Bilirubin 0.2 L (0.3-1.2) mg/dL AST 26 (0-34) U/L ALT 70 H (10-49) U/L Alkaline Phosphatase 41 L (46-116) U/L Albumin 3.0 L (3.5-5.0) gm/dL ABG Interpretation ABG results: 10/19/24 17:07 VBG pH 7.37 VBG pCO2 35 L VBG pO2 34 VBG Base Excess -4 L Assessment and Plan Additional Assessment & Plan Additional Plan: Melena Acute posthemorrhagic anemia Sedation Plan IV Protonix Octreotide infusion at 50 mcg/h N.p.o. Blood transfusion to get the hemoglobin at least above 7 g IV fluids to bring the blood pressure up in the meantime consent obtained for fiberoptic esophagogastroduodenoscopy with possible biopsy possible therapeutic intervention under MAC as patient has a very high BMI Other medical problems include Essential hypertension morbid obesity Cellulitis Chronic venous insufficiency Low back pain Thank you very much for the opportunity to participate in the care of this patient
[2024-10-19 20:13] LABS: Reflex Lactate? Y
[2024-10-19] MEDS: OCTREOTIDE ACET INJ 1,000 MCG in SODIUM CHLORIDE 0.9% 100 ML 5.1 MCG IV (20:19)
[2024-10-19 20:39] LABS: Anion Gap 9 (7-16); BUN/Creatinine Ratio 43 Ratio (12-20); Blood Urea Nitrogen 77 mg/dL (9-23); Calcium 7.7 mg/dL (8.3-10.6); Carbon Dioxide 17.9 mMol/L (20.0-31.0); Chloride 107 mMol/L (98-107); Creatinine (Component) 1.8 mg/dL (0.6-1.3); Glucose 192 mg/dL (74-106); Osmolality,Calculated 296 (275-295); Sodium 134 mMol/L (136-145); eGFR 47 See Note
[2024-10-19 20:41] LABS: Potassium 6.2 mMol/L (3.4-5.1)
[2024-10-19] MEDS: ALBUTEROL RT 2.5 MG/0.5 ML NEBU 10 MG INH (20:45)
[2024-10-19 20:55] LABS: Base Excess -3 (-3-3); HCO3 22 mEq/L (20-26); Inspired Oxygen, FIO2 28 %; O2 Saturation 95 % (91-98); PCO2 38 mmHg (32.0-48.0); PO2 73 mmHg (83-108); pH, Arterial 7.38 (7.35-7.45)
[2024-10-19 21:01] LABS: Allen Test Performed/OK; Puncture Site Right Radial
[2024-10-19 21:15] LABS: Collection Type, Urine Clean Catch
[2024-10-19] MEDS: SOD POLYSTYRENE SULFON SUSP 15 GM/60 ML BTL 30 GM PO (21:20)
[2024-10-19] MEDS: INSULIN HUM REGULAR 1 UNIT/0.01 ML (PER UNIT) 10 UNIT SC (21:21)
--- NOTE | 2024-10-19 21:29 | XR_ITS ---
Examination: Retroperitoneal ultrasound, complete Technique: Multiple high resolution grayscale images of the retroperitoneum obtained, including kidneys and bladder. Exam date and time:October 19, 2024 1007 hours INDICATIONS: Clinical diagnosis renal disease FINDINGS: Right kidney 12.0 cm renal cortex 2.1 cm Left kidney not diagnostically visualized Contracted urinary bladder IMPRESSION: Severely limited study secondary to patient's size No right hydronephrosis
[2024-10-19] MEDS: FUROSEMIDE INJ 10 MG/ML 4ML VIAL 40 MG IVP (21:39)
[2024-10-19 21:44] LABS: Creatinine,Random Urine 54 mg/dL (30-125); Potassium,Urine Random 42 mMol/L (12-62)
[2024-10-19 22:10] LABS: Bilirubin,Urine Negative (Negative); Blood,Urine Negative (Negative); Clarity,Urine Clear (Clear/Hazy); Color,Urine Colorless (Lt Yel-Yel); Glucose, Urine Negative (Negative); Ketones,Urine Negative (Negative); Leukocyte Esterase,Urine Negative (Negative); Nitrite,Urine Negative (Negative); PH,Urine 5.5 (5.0-7.0); Protein,Urine Negative (Neg - Trace); RBC,Urine 1 /hpf (0-3); Specific Gravity,Urine 1.014 (1.001-1.035); Squamous Epithelial Cell,Urine 2 /hpf (0-5); Urobilinogen,Urine Negative mg/dL (0.0-1.0); WBC,Urine 2 /hpf (0-5)
[2024-10-19] MEDS: RINGERS LACTATED 1000 ML 1,000 ML 999 ML IV (22:15)
[2024-10-19 22:43] LABS: Lactate (Lactic Acid) 3.3 mMol/L (0.4-2.0)
--- NOTE | 2024-10-19 23:02 | EVENTNT_ITS ---
Documentation for date of: 10/19/24 Event Note Event Note: Patient was ordered to the bedside, repeat labs showed continued uptrend in patient's potassium, hyperkalemia up to 6.2 despite continued medical management, uptrending lactic acid, MARCO, likely ATN due to hypotensive episode, shock kidney. Patient was counseled regarding need of urgent hemodialysis if potassium continues to trend upwards, but he was apprehensive for dialysis line placement, and after discussing with the patient, we will repeat renal panel in 2 to 3 hours, given IV Lasix x 1 as systolic blood pressure in the 130s, will reevaluate patient if need for hemodialysis. ? Discontinue maintenance fluids, give IV fluid bolus LR, will repeat boluses if needed, patient also already received 3 L IV fluid boluses, is currently getting blood transfusions. ? Consulted office helper clerical Dr Russo, updated her regarding patient's condition, also told patient is apprehensive for hemodialysis at this point, recommended to continue close monitoring. ? Continuous nebulization with albuterol 10 mg, repeated insulin with IV dextrose, ordered EKG. ? Agosto's for strict input output ? Will reevaluate if need for hemodialysis, following repeat renal panel. - PO Kayexelate x1 given, as no plans for EGD tonight, pt will need MAC for EGD per GI. Plan of care discussed with my attending and ICU resident Reynaldo Bruno PGY2
[2024-10-19 23:03] LABS: Albumin, Serum 3.2 gm/dL (3.5-5.0); Anion Gap 12 (7-16); BUN/Creatinine Ratio 44 Ratio (12-20); Blood Urea Nitrogen 79 mg/dL (9-23); Calcium 8.6 mg/dL (8.3-10.6); Calcium (Corrected) 9.2 mg/dL (8.5-10.1); Carbon Dioxide 18.7 mMol/L (20.0-31.0); Chloride 104 mMol/L (98-107); Creatinine (Component) 1.8 mg/dL (0.6-1.3); Glucose 129 mg/dL (74-106); Osmolality,Calculated 295 (275-295); Phosphorous 5.3 mg/dL (2.4-5.1); Potassium 4.4 mMol/L (3.4-5.1); Sodium 135 mMol/L (136-145); Troponin I 0.022 ng/mL (0.0-0.045); eGFR 47 See Note
[2024-10-19 23:09] LABS: Amphetamine/Methamp Scrn,U Negative (Negative); Barbiturate Screen,Urine Negative (Negative); Benzodiazepines Screen,Urine Negative (Negative); Benzoylecgonine Screen, Ur Negative (Negative); Fentanyl Screen,Urine Negative (Negative); Opiate Screen,Urine Negative (Negative); THC Screen,Urine Negative (Negative)
[2024-10-20] VITALS (31 sets, daily range): BP systolic 96–160; BP diastolic 39–84; PULSE 60–88; RESP 12–24; TEMP 36.1–37; O2SAT 92–100
[2024-10-20 00:57] LABS: Hematocrit 18.6 % (41.0-53.0); Hemoglobin 6.2 g/dL (13.5-16.0)
[2024-10-20 01:39] LABS: Reflex Lactate? Y
--- NOTE | 2024-10-20 03:55 | PC.NURSE ---
3 out of 4 units of packed RBC is transfusing no reactions have been noted. also 1 FFP and 1 platelet have been trasfused no reactions noted. patient have stable vital signs and not on distress.
[2024-10-20] MEDS: PIPER/TAZO 3.375 GM PREMIX 3.375 GM/50 ML BAG IV ×3 (05:07→21:05)
[2024-10-20 05:38] LABS: Basophils # (Auto) 0.1 Thou/mm3 (0.0-0.2); Basophils % (Auto) 0 % (0-2.5); Eosinophils % (Auto) 0 % (0-10); Immature Granulocytes % (Auto) 8 % (0-0); Immature Granulocytes Auto 1.66 Thou/mm3 (0.00-0.00); Lymphocytes # (Auto) 3.6 Thou/mm3 (1.0-4.8); Lymphocytes % (Auto) 18 % (10-50); Mean Corpuscular HGB Conc 33.7 g/dl (31.0-37.0); Mean Corpuscular Hemoglobin 31.6 pg (25.0-35.0); Mean Corpuscular Volume 94 fL (80-100); Monocytes # (Auto) 1.4 Thou/mm3 (0.0-0.8); Monocytes % (Auto) 7 % (0-12); Neutrophils # (Auto) 13.4 Thou/mm3 (1.8-7.7); Neutrophils % (Auto) 67 % (37-80); Nucleated Red Blood Cell # 0.19 Thou/mm3 (0.00-0.00); Nucleated Red Blood Cell % 1 /100 WBC (0); Platelet Count 423 Thou/mm3 (140-440); RDW Standard Deviation 48.4 fL (35.1-43.9); White Blood Count 20.1 Thou/mm3 (3.8-10.6)
[2024-10-20 05:54] LABS: INR 1.1 (0.9-1.3); Partial Thromboplastin Time 21.9 Seconds (22.0-36.0); Prothrombin Time 12.2 Seconds (9.0-12.2)
[2024-10-20 05:55] LABS: Ferritin 162 ng/mL (10.5-307.3); Iron 64 mcg/dL (65-175); Percent Iron Saturation 23 % (20-55); Total Iron Binding Capacity 273 mcg/dL (250-425); Unsaturated Iron Binding 209 (225-295)
[2024-10-20 05:57] LABS: Alanine Aminotransferase 59 U/L (10-49); Albumin, Serum 3.1 gm/dL (3.5-5.0); Alkaline Phosphatase 34 U/L (46-116); Anion Gap 11 (7-16); Aspartate Amino Transferase 21 U/L (0-34); BUN/Creatinine Ratio 52 Ratio (12-20); Bilirubin,Total 0.3 mg/dL (0.3-1.2); Blood Urea Nitrogen 94 mg/dL (9-23); Calcium 8.1 mg/dL (8.3-10.6); Calcium (Corrected) 8.8 mg/dL (8.5-10.1); Chloride 106 mMol/L (98-107); Creatinine (Component) 1.8 mg/dL (0.6-1.3); Globulin 3.2 gm/dL (2.3-3.5); Glucose 132 mg/dL (74-106); Magnesium 1.9 mg/dL (1.6-2.6); Osmolality,Calculated 312 (275-295); Potassium 4.5 mMol/L (3.4-5.1); Sodium 141 mMol/L (136-145); Total Protein 6.3 gm/dL (5.7-8.2); eGFR 47 See Note
[2024-10-20 06:11] LABS: Hematocrit 17.8 % (41.0-53.0)
[2024-10-20 06:35] LABS: Lactate (Lactic Acid) 1.9 mMol/L (0.4-2.0)
[2024-10-20 06:40] LABS: Hepatitis A Antibody IgM Non Reactive (Non React); Hepatitis B Core Antibody IgM Non Reactive (Non React); Hepatitis B Surface Antigen Non Reactive (Non React); Hepatitis C Antibody Non Reactive (Non React)
[2024-10-20] MEDS: PANTOPRAZOLE INJ 40 MG VIAL IV (08:13)
[2024-10-20 08:37] LABS: Cardiac Risk Estimate 3.3 RATIO (4.0-6.7); Cholesterol 93 mg/dL (132-200); HDL Cholesterol 28 mg/dL (40-60); LDL Cholesterol,Calculated 45 mg/dL (0-130); Triglycerides 99 mg/dL (30-150)
[2024-10-20 08:44] LABS: Misc Send Out* See Sep Rpt
[2024-10-20 09:19] LABS: Path Review Blood Smear Sent to Pathologist
--- NOTE | 2024-10-20 09:38 | ESPR_ITS ---
Documentation for date of: 10/20/24 Subjective Subjective Interval history: Patient examined at bedside today. Overnight events include patient having rapid response due to hyperkalemia and of 6. Patient was getting transfused and hemoglobin continues to be low despite 3 PRBCs. Additional blood was ordered for the patient. When patient examined at bedside today and is asking if he can sit up in a chair. He says that he is tolerating a blood transfusion fine currently. He also says that he is wondering when he is going to get the EGD done. No other complaints at this time. Exam Vital Signs Temp Pulse Resp BP Pulse Ox O2 Del Method O2 Flow Rate 97.4 F 82 24 H 158/65 H 96 Nasal Cannula 3 10/20/24 08:17 10/20/24 08:41 10/20/24 08:41 10/20/24 08:17 10/20/24 08:41 10/20/24 08:04 10/20/24 08:41 Narrative Exam General: AAOx3, NAD, severely morbid obese, HEENT: Moist mucous membranes, conjunctiva clear, EOMI, PERRLA, skin tags present around neck, acanthosis nigricans present Cardiovascular: S1, S2, radial pulses +2 bilat, RRR, Pulmonary: Difficulty appreciating breath sounds for this patient, however appreciated some wheezing GI: No tenderness to light or deep palpitation, no guarding, rigidity, rebound tenderness or distension, abdomen is large Extremities: severe venous stasis in RLE, LLE present with dressing, no pitting edema, shoulder tattoo present Neuro: AAOx3, no focal motor or sensory deficits in the UE or LE bilat Psych: Cooperative Objective Labs 10/21/24 05:42 10/21/24 05:42 Labs: Laboratory Results - last 24 hr 10/19/24 10/19/24 10/19/24 15:53 16:22 17:07 WBC 24.1 H RBC 1.67 L* Hgb 5.2 L* Hct 15.9 L* MCV 95 MCH 31.1 MCHC 32.7 RDW Std Deviation 47.2 H Plt Count 545 H D Neut % (Auto) 71 Lymph % (Auto) 15 [place] % (Auto) 4 Eos % (Auto) 0 Baso % (Auto) 0 Neut # (Auto) 17.2 H Lymph # (Auto) 3.5 [place] # (Auto) 1.0 H Eos # (Auto) 0.0 Baso # (Auto) 0.1 Immature Gran # (Auto) 2.43 H Absolute Nucleated RBC 0.40 H Immature Gran % 10 H Nucleated RBC % 2 H Smear Path Review PT 12.4 H INR 1.1 APTT 21.3 L Puncture Site ABG pH ABG pCO2 ABG pO2 ABG HCO3 ABG O2 Saturation ABG Base Excess VBG pH 7.37 VBG pCO2 35 L VBG pO2 34 VBG O2 Sat (Winnie) 61 L VBG Base Excess -4 L FiO2 Sodium 136 Potassium 5.6 H 5.8 H Chloride 104 Carbon Dioxide 19.5 L Anion Gap 13 BUN 95 H Creatinine 1.7 H Estim Creat Clear Calc 115.4 eGFR 50 L BUN/Creatinine Ratio 56 H Glucose 138 H Calculated Osmolality 303 H Lactic Acid 3.6 H Calcium 8.1 L Corrected Calcium 8.9 Phosphorus Magnesium 1.6 Iron TIBC Iron Saturation Unsat Iron Binding Ferritin Total Bilirubin 0.2 L AST 26 ALT 70 H Alkaline Phosphatase 41 L Troponin I < 0.020 B-Natriuretic Peptide < 20 Total Protein 6.2 Albumin 3.0 L Globulin 3.2 Albumin/Globulin Ratio 0.9 L Triglycerides Cholesterol LDL Cholesterol, Calc HDL Cholesterol Cholesterol/HDL Ratio Procalcitonin 0.20 Ur Collection Type Urine Color Urine Clarity Urine pH Ur Specific [place] Urine Protein Urine Glucose (UA) Urine Ketones Urine Blood Urine Nitrite Urine Bilirubin Urine Urobilinogen (Auto) Ur Leukocyte Esterase Urine RBC Urine WBC Ur Squamous Epith Cells Urine Bacteria Ur Random Creatinine Ur Random Sodium Ur Random Potassium Ur Random Chloride Urine Opiates Screen Urine Fentanyl Screen Ur Barbiturates Screen U Amphetamin/Meth Scrn U Benzodiazepines Scrn U Cocaine Metab Screen U Marijuana (THC) Screen Hepatitis A IgM Ab Hep Bs Antigen Hep B Core IgM Ab Hepatitis C Antibody Blood Type O Positive Antibody Screen NEGATIVE Crossmatch See Detail Blood Bank Wristband ID Yes Blood Bank Comment FFP Ready 10/19/24 10/19/24 10/19/24 20:10 20:35 20:40 WBC RBC Hgb Hct MCV MCH MCHC RDW Std Deviation Plt Count Neut % (Auto) Lymph % (Auto) [place] % (Auto) Eos % (Auto) Baso % (Auto) Neut # (Auto) Lymph # (Auto) [place] # (Auto) Eos # (Auto) Baso # (Auto) Immature Gran # (Auto) Absolute Nucleated RBC Immature Gran % Nucleated RBC % Smear Path Review PT INR APTT Puncture Site Right Radial ABG pH 7.38 ABG pCO2 38 ABG pO2 73 L ABG HCO3 22 ABG O2 Saturation 95 ABG Base Excess -3 VBG pH VBG pCO2 VBG pO2 VBG O2 Sat (Winnie) VBG Base Excess FiO2 28 Sodium 134 L Potassium 6.2 H* Chloride 107 Carbon Dioxide 17.9 L Anion Gap 9 BUN 77 H Creatinine 1.8 H Estim Creat Clear Calc 109.0 eGFR 47 L BUN/Creatinine Ratio 43 H Glucose 192 H D Calculated Osmolality 296 H Lactic Acid 4.0 H Calcium 7.7 L Corrected Calcium Phosphorus Magnesium Iron TIBC Iron Saturation Unsat Iron Binding Ferritin Total Bilirubin AST ALT Alkaline Phosphatase Troponin I B-Natriuretic Peptide Total Protein Albumin Globulin Albumin/Globulin Ratio Triglycerides Cholesterol LDL Cholesterol, Calc HDL Cholesterol Cholesterol/HDL Ratio Procalcitonin Ur Collection Type Clean Catch Urine Color Colorless A Urine Clarity Clear Urine pH 5.5 Ur Specific [place] 1.014 Urine Protein Negative Urine Glucose (UA) Negative Urine Ketones Negative Urine Blood Negative Urine Nitrite Negative Urine Bilirubin Negative Urine Urobilinogen (Auto) Negative Ur Leukocyte Esterase Negative Urine RBC 1 Urine WBC 2 Ur Squamous Epith Cells 2 Urine Bacteria None Ur Random Creatinine 54 Ur Random Sodium 62.0 Ur Random Potassium 42 Ur Random Chloride 50.0 L Urine Opiates Screen Negative Urine Fentanyl Screen Negative Ur Barbiturates Screen Negative U Amphetamin/Meth Scrn Negative U Benzodiazepines Scrn Negative U Cocaine Metab Screen Negative U Marijuana (THC) Screen Negative Hepatitis A IgM Ab Hep Bs Antigen Hep B Core IgM Ab Hepatitis C Antibody Blood Type Antibody Screen Crossmatch Blood Bank Wristband ID Blood Bank Comment 10/19/24 10/20/24 10/20/24 22:29 00:36 04:57 WBC 20.1 H RBC 1.90 L* Hgb 6.2 L* 6.0 L* Hct 18.6 L* 17.8 L* MCV 94 MCH 31.6 MCHC 33.7 RDW Std Deviation 48.4 H Plt Count 423 D Neut % (Auto) 67 Lymph % (Auto) 18 [place] % (Auto) 7 Eos % (Auto) 0 Baso % (Auto) 0 Neut # (Auto) 13.4 H Lymph # (Auto) 3.6 [place] # (Auto) 1.4 H Eos # (Auto) 0.0 Baso # (Auto) 0.1 Immature Gran # (Auto) 1.66 H Absolute Nucleated RBC 0.19 H Immature Gran % 8 H Nucleated RBC % 1 H Smear Path Review Cancelled Sent to Pathologist PT 12.2 INR 1.1 APTT 21.9 L Puncture Site ABG pH ABG pCO2 ABG pO2 ABG HCO3 ABG O2 Saturation ABG Base Excess VBG pH VBG pCO2 VBG pO2 VBG O2 Sat (Winnie) VBG Base Excess FiO2 Sodium 135 L 141 Potassium 4.4 D 4.5 Chloride 104 106 Carbon Dioxide 18.7 L 24.0 Anion Gap 12 11 BUN 79 H 94 H Creatinine 1.8 H 1.8 H Estim Creat Clear Calc 109.0 109.0 eGFR 47 L 47 L BUN/Creatinine Ratio 44 H 52 H Glucose 129 H D 132 H Calculated Osmolality 295 312 H Lactic Acid 3.3 H 1.9 Calcium 8.6 8.1 L Corrected Calcium 9.2 8.8 Phosphorus 5.3 H 5.0 Magnesium 1.9 Iron 64 L TIBC 273 Iron Saturation 23 Unsat Iron Binding 209 L Ferritin 162 Total Bilirubin 0.3 AST 21 ALT 59 H Alkaline Phosphatase 34 L Troponin I 0.022 B-Natriuretic Peptide Total Protein 6.3 Albumin 3.2 L 3.1 L Globulin 3.2 Albumin/Globulin Ratio 1.0 L Triglycerides 99 Cholesterol 93 L LDL Cholesterol, Calc 45 HDL Cholesterol 28 L Cholesterol/HDL Ratio 3.3 L Procalcitonin Ur Collection Type Urine Color Urine Clarity Urine pH Ur Specific [place] Urine Protein Urine Glucose (UA) Urine Ketones Urine Blood Urine Nitrite Urine Bilirubin Urine Urobilinogen (Auto) Ur Leukocyte Esterase Urine RBC Urine WBC Ur Squamous Epith Cells Urine Bacteria Ur Random Creatinine Ur Random Sodium Ur Random Potassium Ur Random Chloride Urine Opiates Screen Urine Fentanyl Screen Ur Barbiturates Screen U Amphetamin/Meth Scrn U Benzodiazepines Scrn U Cocaine Metab Screen U Marijuana (THC) Screen Hepatitis A IgM Ab Non Reactive Hep Bs Antigen Non Reactive Hep B Core IgM Ab Non Reactive Hepatitis C Antibody Non Reactive Blood Type Antibody Screen Crossmatch Blood Bank Wristband ID Blood Bank Comment 10/20/24 05:00 WBC RBC Hgb Hct MCV MCH MCHC RDW Std Deviation Plt Count Neut % (Auto) Lymph % (Auto) [place] % (Auto) Eos % (Auto) Baso % (Auto) Neut # (Auto) Lymph # (Auto) [place] # (Auto) Eos # (Auto) Baso # (Auto) Immature Gran # (Auto) Absolute Nucleated RBC Immature Gran % Nucleated RBC % Smear Path Review PT INR APTT Puncture Site ABG pH ABG pCO2 ABG pO2 ABG HCO3 ABG O2 Saturation ABG Base Excess VBG pH VBG pCO2 VBG pO2 VBG O2 Sat ([place]innie) VBG Base Excess FiO2 Sodium Potassium Chloride Carbon Dioxide Anion Gap BUN Creatinine Estim Creat Clear Calc eGFR BUN/Creatinine Ratio Glucose Calculated Osmolality Lactic Acid Cancelled Calcium Corrected Calcium Phosphorus Magnesium Iron TIBC Iron Saturation Unsat Iron Binding Ferritin Total Bilirubin AST ALT Alkaline Phosphatase Troponin I B-Natriuretic Peptide Total Protein Albumin Globulin Albumin/Globulin Ratio Triglycerides Cholesterol LDL Cholesterol, Calc HDL Cholesterol Cholesterol/HDL Ratio Procalcitonin Ur Collection Type Urine Color Urine Clarity Urine pH Ur Specific [place] Urine Protein Urine Glucose (UA) Urine Ketones Urine Blood Urine Nitrite Urine Bilirubin Urine Urobilinogen (Auto) Ur Leukocyte Esterase Urine RBC Urine WBC Ur Squamous Epith Cells Urine Bacteria Ur Random Creatinine Ur Random Sodium Ur Random Potassium Ur Random Chloride Urine Opiates Screen Urine Fentanyl Screen Ur Barbiturates Screen U Amphetamin/Meth Scrn U Benzodiazepines Scrn U Cocaine Metab Screen U Marijuana (THC) Screen Hepatitis A IgM Ab Hep Bs Antigen Hep B Core IgM Ab Hepatitis C Antibody Blood Type Antibody Screen Crossmatch Blood Bank Wristband ID Blood Bank Comment ABG Interpretation ABG results: 10/19/24 10/19/24 17:07 20:40 ABG pH 7.38 ABG pCO2 38 ABG pO2 73 L ABG HCO3 22 ABG O2 Saturation 95 ABG Base Excess -3 VBG pH 7.37 VBG pCO2 35 L VBG pO2 34 VBG Base Excess -4 L Quality Measures Quality Measures none Assessment & Plan Assessment Current Active Medications: Generic Name Dose Route Start Last Admin Trade Name Freq PRN Reason Stop Dose Admin Acetaminophen 650 mg 10/19/24 18:14 Acetaminophen 325 Mg Tablet PO 11/18/24 18:13 Q6H PRN Fever >101.5 Albuterol/Ipratropium 3 ml 10/19/24 18:14 Albuterol/Ipratropium (Duoneb) Rt [place] 3 Ml Nebu INH 11/18/24 18:59 Q6HRRT PRN wheezing Dextrose 25 ml 10/19/24 17:17 Dextrose 50%-Water Inj 50 Ml Syringe IV 11/18/24 17:16 Q15MIN PRN BG 50-70 responsive npo pt Dextrose 50 ml 10/19/24 17:17 Dextrose 50%-Water Inj 50 Ml Syringe IV 11/18/24 17:16 Q15MIN PRN BG <50 OR BG <70 & pt unresponsive Glucagon 1 mg 10/19/24 17:17 Glucagon Inj 1 Mg Vial IM Q15MIN PRN BG <70, and no IV access Piperacillin/Tazobactam/Dextrose 3.375 gm in 50 mls @ 12.5 mls/hr 10/19/24 22:00 10/20/24 05:07 Zosyn IV 10/26/24 21:59 12.5 mls/hr Q8HR RAD Administration Octreotide Acetate 1,000 mcg/ 102 mls @ 5.1 mls/hr 10/19/24 20:00 10/19/24 20:19 Sodium Chloride IV 10/24/24 19:59 50 mcg/hr .Q20H RAD 5.1 mls/hr Administration Protocol 50 MCG/HR Ondansetron HCl 4 mg 10/19/24 18:14 Ondansetron Inj 2 Mg/Ml Inj 2 Ml IV 11/18/24 18:13 Q6H PRN NAUSEA OR VOMITING Protocol Pantoprazole Sodium 40 mg 10/20/24 09:00 10/20/24 08:13 Pantoprazole Inj 40 Mg Vial IV 11/19/24 08:59 40 mg BID RAD Administration Pharmacy Consult 1 each 10/19/24 23:01 Pharmacy Renal Dose Adjustment 1 Ea XX 11/18/24 23:00 PRN PRN CONSULT Sodium Chloride 3 ml 10/19/24 20:20 Sodium Chloride Rt [place] 0.9% 3 Ml Nebu INH 11/18/24 20:19 PRN PRN SOLN Plan Assessment Nader is a 44 y/o male with PMHx hypertension, severe morbid obesity, chronic venous insufficiency, cellulitis, abscess, chronic lower back pain who is admitted for GI bleed and acute blood loss anemia. #Upper GI Bleed secondary to #Duodenal ulcer #Acute blood loss anemia #Symptomatic anemia #Gastritis DDx: GI Bleed, chronic anemia, medication induced Hgb 5.3 on presentation At this point with dark-colored stools, we believe this is a GI bleed, upper in nature Patient was recently discharged on a number of medicines including Celebrex and doxycycline Doxycycline side effect include possible esophagitis, and in combination with Celebrex could be the cause of bleeding at this time FOBT: Not done NSAID use: Celebrex Patient does not use blood thinners No history of varices, however patient will need additional medicines to control bleeding Pt will need iron studies outpatient as these iron studies may not be fully accurate with blood transfusions EGD 10/20/2024: Oozing duodenal ulcer treated with Epi Will need to monitor Hgb, continue drips as well Pt to get another PRBC after 4 PRBC and FFP given Plan: ? GI consulted, appreciate recs ? Trend CBC ? Follow up PBS ? Transfusion protocol hemoglobin below 7 ? Avoiding any NSAIDs ? SCDs ? Protonix drip ? Octreotide drip ? Follow-up with H&H after 1 PRBC #Hypokalemia , resoslved 5.6 -> 5.8-> 4.5 Plan: ? Trend with CMP #Acute kidney injury DDx: Prerenal versus ATN versus obstructive Most likely prerenal azotemia, BUN and Cr ~90s and 1.7 respectively FeNa: 1.7 -> Indeterminate Plan: ? NS 75 cc/hr ? Urine Lytes and Cr ? Avoid Nephrotoxic agents ? Renally dose medicines #Chronic venous insufficiency #Cellulitis Patient was recently discharged with bacteremia Patient was given antibiotics upon DC Unsure if patient is septic at this time, however will continue with antibiotic treatment Plan: ? Continue Zosyn 3.375 every 8 hours ? Follow-up blood cultures ? MRSA nares ? Continue wound care #Elevated transaminases, improving Hepatitis panel unremarkable AST/ALT could be component of possible DARDEN Plan: ? Trend with CMP #Thrombocytopenia, resolved Plan: ? Trend with CBC #Morbid obesity Patient has been approved to see bariatric surgery in [place] Was recently prescribed Rybelsus TSH and Lipid panel normal, however, A1c is too high to be read, will need to be a send out per lab. Pending A1c read Plan: ? Outpatient workup #Chronic lower back pain Plan: ? Multimodal analgesia, including lidocaine patch, Tylenol and morphine breakthrough #Health Maintenance Disposition: Telemetry DVT prophylaxis: SCDs GI prophylaxis: Protonix and Octretide Drip Diet: NPO CODE STATUS:Full Patient seen and care discussed with my attending physician, Dr. Josefina Richards, PGY-1 Attending Provider Attestation/Addendum I have examined the patient, reviewed labs and imaging findings, discussed the case with the resident(s), and reviewed entered orders. I agree with the plan of care as outlined in this note, with these additional summaries/recommendations: Patient seen at bedside being taken for endoscopy. This morning hemoglobin 6.0 despite 3 units PRBCs. Additional unit of PRBCs ordered with posttransfusion H&H. We will continue to transfuse for hemoglobin less than 7. Continue to hold all chemical anticoagulation. Patient went for EGD that revealed normal esophagus, gastritis, oozing duodenal ulcer with a visible vessel with hemostasis achieved. Per gastroenterology, keep patient n.p.o., Protonix gtt., Maalox 30 mL p.o. every 4 hours, Carafate 1 g 4 times daily, and serial CBCs. Patient's acute kidney injury unchanged from previous day. Given that patient is still actively bleeding most likely etiology is still prerenal azotemia. Continue IV fluids and avoid nephrotoxic agents. Repeat renal panel in AM. Patient is continued on IV Zosyn to complete treatment for patient's bacteremia that was diagnosed on previous admission. Leukocytosis improving. Repeat blood cultures pending. Patient updated on the plan and in agreement. All questions answered to satisfaction. Please see residents note for additional details of management. Dr. Josefina MD
--- NOTE | 2024-10-20 10:28 | PC.SS ---
Patient Nader Mary is a 44 Year old male admitted for GI Bleed. SS met with patient at bedside to discuss discharge plan. Patient reports he lives with a roommate. Patient reports that his sister, Ely Mary is his surrogate decision maker [phone]. Patient does not utilize any source of DME to assist with ambulation. Choice of pharmacy is [facility] and PCP is Júnior Hudson. Patient reports that at time of discharge he will return back home. Patient's sister will provide transportation. Discharge plan: Home Next of kin: Sister, Ely Mary [phone]
--- NOTE | 2024-10-20 10:48 | PC.SS ---
SS follow up note; Patient is no IV Fluids, pending colonoscopy and will be getting blood transfusion. Patient will return back home when medically cleared.
[2024-10-20] MEDS: SODIUM CHLORIDE 0.9% 1000 ML 1,000 ML 999 ML IV (11:07)
[2024-10-20] MEDS: EPINEPHrine INJ 0.1 MG/ML SYRINGE 10ML 1 MG IV (11:10)
--- NOTE | 2024-10-20 11:24 | SUR.PHASEI ---
1120 Patient arrived to recovery, talking with staff, on oxygen 4L via oxy mask, breathing unlabored, vital sign stable, denies pain and nausea, report received from Kori KEENAN and Dr. Cuevas
--- NOTE | 2024-10-20 12:00 | SUR.OPER ---
1145: Report called to Floor nurse SHLOMO Moon at this time.
--- NOTE | 2024-10-20 12:02 | SUR.PHASEI ---
1156 Report given to Sarai KEENAN, patient meets discharge criteria from recovery, awake and alert, breathing unlabored, on oxygen 2L via nasal cannula, breathing unlabored, vital signs stable, denies pain and nausea 1202 Patient transported via bed to room 263 without incident, patient resting comfortably with call light in reach when this food writer left patients room
[2024-10-20] MEDS: SUCRALFATE SUSP 1 GM/10 ML UDC PO ×3 (12:17→20:31)
[2024-10-20] MEDS: SODIUM CHLORIDE 0.9% 1000 ML 1,000 ML 70 ML IV (12:17)
[2024-10-20] MEDS: PANTOPRAZOLE/NS 80MG IV PREMIX 80 MG/100 ML BAG 10 MG IV ×2 (12:17→19:48)
[2024-10-20 13:21] LABS: Hematocrit 19.7 % (41.0-53.0); Hemoglobin 6.7 g/dL (13.5-16.0)
[2024-10-20] MEDS: MG HYD/AL HYD/SIME (Maalox Reg) SUSP 30 ML UDC PO ×3 (15:06→20:31)
[2024-10-20] MEDS: OCTREOTIDE ACET INJ 1,000 MCG in SODIUM CHLORIDE 0.9% 100 ML 5.1 MCG IV (16:30)
[2024-10-20 19:05] LABS: Hematocrit 23.8 % (41.0-53.0)
[2024-10-20 19:23] LABS: Hemoglobin 7.9 g/dL (13.5-16.0)
[2024-10-21] VITALS (7 sets, daily range): BP systolic 120–153; BP diastolic 60–99; PULSE 62–83; RESP 17–23; TEMP 36–36.9; O2SAT 95–100; BMI 73.2; BMI 75.9
[2024-10-21] MEDS: SODIUM CHLORIDE 0.9% 1000 ML 1,000 ML 70 ML IV (01:19)
[2024-10-21] MEDS: SUCRALFATE SUSP 1 GM/10 ML UDC PO ×4 (05:00→20:48)
[2024-10-21] MEDS: MG HYD/AL HYD/SIME (Maalox Reg) SUSP 30 ML UDC PO ×5 (05:00→20:48)
[2024-10-21] MEDS: PIPER/TAZO 3.375 GM PREMIX 3.375 GM/50 ML BAG IV ×3 (05:01→20:48)
[2024-10-21] MEDS: PANTOPRAZOLE/NS 80MG IV PREMIX 80 MG/100 ML BAG 10 MG IV ×2 (05:01→17:01)
[2024-10-21 06:51] LABS: Basophils # (Auto) 0.1 Thou/mm3 (0.0-0.2); Basophils % (Auto) 1 % (0-2.5); Eosinophils # (Auto) 0.1 Thou/mm3 (0.0-0.5); Eosinophils % (Auto) 1 % (0-10); Hematocrit 21.6 % (41.0-53.0); Immature Granulocytes % (Auto) 8 % (0-0); Immature Granulocytes Auto 0.99 Thou/mm3 (0.00-0.00); Lymphocytes # (Auto) 2.4 Thou/mm3 (1.0-4.8); Lymphocytes % (Auto) 19 % (10-50); Mean Corpuscular HGB Conc 32.9 g/dl (31.0-37.0); Mean Corpuscular Hemoglobin 31.4 pg (25.0-35.0); Mean Corpuscular Volume 96 fL (80-100); Monocytes # (Auto) 0.9 Thou/mm3 (0.0-0.8); Monocytes % (Auto) 7 % (0-12); Neutrophils # (Auto) 7.8 Thou/mm3 (1.8-7.7); Neutrophils % (Auto) 64 % (37-80); Nucleated Red Blood Cell # 0.17 Thou/mm3 (0.00-0.00); Nucleated Red Blood Cell % 1 /100 WBC (0); Platelet Count 346 Thou/mm3 (140-440); RDW Standard Deviation 54.1 fL (35.1-43.9); Red Blood Count 2.26 Miln/mm3 (4.50-5.90); White Blood Count 12.2 Thou/mm3 (3.8-10.6)
[2024-10-21 06:54] LABS: INR 1.1 (0.9-1.3); Prothrombin Time 12.1 Seconds (9.0-12.2)
[2024-10-21 06:56] LABS: Hemoglobin 7.1 g/dL (13.5-16.0)
[2024-10-21 07:10] LABS: Alanine Aminotransferase 50 U/L (10-49); Albumin, Serum 3.2 gm/dL (3.5-5.0); Albumin/Globulin Ratio 1.1 (1.2-2.2); Alkaline Phosphatase 33 U/L (46-116); Anion Gap 8 (7-16); Aspartate Amino Transferase 21 U/L (0-34); BUN/Creatinine Ratio 37 Ratio (12-20); Bilirubin,Total 0.6 mg/dL (0.3-1.2); Blood Urea Nitrogen 48 mg/dL (9-23); Calcium 8.3 mg/dL (8.3-10.6); Calcium (Corrected) 8.9 mg/dL (8.5-10.1); Carbon Dioxide 26.6 mMol/L (20.0-31.0); Chloride 109 mMol/L (98-107); Creatinine (Component) 1.3 mg/dL (0.6-1.3); Estimated Creatinine Clearance 150.9 mL/min (>60); Glucose 116 mg/dL (74-106); Magnesium 2.1 mg/dL (1.6-2.6); Osmolality,Calculated 300 (275-295); Phosphorous 3.2 mg/dL (2.4-5.1); Potassium 4.4 mMol/L (3.4-5.1); Sodium 144 mMol/L (136-145); Total Protein 6.2 gm/dL (5.7-8.2); eGFR > 60 See Note
[2024-10-21] MEDS: LIDOCAINE 5% 1 PATCH TOP (07:53)
[2024-10-21 10:34] LABS: Hemoglobin 7.7 g/dL (13.5-16.0)
--- NOTE | 2024-10-21 10:36 | ESPR_ITS ---
<Statement entered by Yessica Kern MD - 10/22/24 17:49> Patient was seen and examined at bedside, agree on the assessment and plan on this note. - Patient's plan and care discussed with my attending, Dr. Josefina Kern MD Internal Medicine PGY-2 Documentation for date of: 10/21/24 Subjective Subjective Interval history: Patient examined at bedside today. No acute overnight events. Patient reports that he is feeling much better. He also notes that his stools are brown in color again. He is requesting to drink water. No other complaint at this time. Exam Vital Signs Temp Pulse Resp BP Pulse Ox O2 Del Method O2 Flow Rate 97.0 F 70 17 151/95 H 98 Nasal Cannula 2 10/21/24 08:00 10/21/24 08:00 10/21/24 08:00 10/21/24 08:00 10/21/24 08:00 10/21/24 04:00 10/21/24 08:00 Narrative Exam General: AAOx3, NAD, severely morbid obese, HEENT: Moist mucous membranes, conjunctiva clear, EOMI, PERRLA, skin tags present around neck, acanthosis nigricans present Cardiovascular: S1, S2, radial pulses +2 bilat, RRR, Pulmonary: Difficulty appreciating breath sounds for this patient, however appreciated some wheezing GI: No tenderness to light or deep palpitation, no guarding, rigidity, rebound tenderness or distension, abdomen is large Extremities: severe venous stasis in RLE, LLE present with dressing, no pitting edema, shoulder tattoo present Neuro: AAOx3, no focal motor or sensory deficits in the UE or LE bilat Psych: Cooperative Objective Labs 10/22/24 04:58 10/22/24 04:58 Labs: Laboratory Results - last 24 hr 10/19/24 10/20/24 10/20/24 16:22 12:32 18:48 WBC RBC Hgb 6.7 L* 7.9 L Hct 19.7 L* 23.8 L MCV MCH MCHC RDW Std Deviation Plt Count Neut % (Auto) Lymph % (Auto) [place] % (Auto) Eos % (Auto) Baso % (Auto) Neut # (Auto) Lymph # (Auto) [place] # (Auto) Eos # (Auto) Baso # (Auto) Immature Gran # (Auto) Absolute Nucleated RBC Immature Gran % Nucleated RBC % PT INR Sodium Potassium Chloride Carbon Dioxide Anion Gap BUN Creatinine Estim Creat Clear Calc eGFR BUN/Creatinine Ratio Glucose Calculated Osmolality Calcium Corrected Calcium Phosphorus Magnesium Total Bilirubin AST ALT Alkaline Phosphatase Total Protein Albumin Globulin Albumin/Globulin Ratio Blood Type O Positive Antibody Screen NEGATIVE Crossmatch See Detail Blood Bank Wristband ID Yes Blood Bank Comment FFP Ready 10/21/24 10/21/24 05:42 10:12 WBC 12.2 H D RBC 2.26 L Hgb 7.1 L 7.7 L Hct 21.6 L* 24.0 L MCV 96 MCH 31.4 MCHC 32.9 RDW Std Deviation 54.1 H Plt Count 346 D Neut % (Auto) 64 Lymph % (Auto) 19 [place] % (Auto) 7 Eos % (Auto) 1 Baso % (Auto) 1 Neut # (Auto) 7.8 H Lymph # (Auto) 2.4 [place] # (Auto) 0.9 H Eos # (Auto) 0.1 Baso # (Auto) 0.1 Immature Gran # (Auto) 0.99 H Absolute Nucleated RBC 0.17 H Immature Gran % 8 H Nucleated RBC % 1 H PT 12.1 INR 1.1 Sodium 144 Potassium 4.4 Chloride 109 H Carbon Dioxide 26.6 Anion Gap 8 BUN 48 H Creatinine 1.3 D Estim Creat Clear Calc 150.9 eGFR > 60 BUN/Creatinine Ratio 37 H Glucose 116 H Calculated Osmolality 300 H Calcium 8.3 Corrected Calcium 8.9 Phosphorus 3.2 Magnesium 2.1 Total Bilirubin 0.6 AST 21 ALT 50 H Alkaline Phosphatase 33 L Total Protein 6.2 Albumin 3.2 L Globulin 3.0 Albumin/Globulin Ratio 1.1 L Blood Type Antibody Screen Crossmatch Blood Bank Wristband ID Blood Bank Comment ABG Interpretation ABG results: 10/19/24 10/19/24 17:07 20:40 ABG pH 7.38 ABG pCO2 38 ABG pO2 73 L ABG HCO3 22 ABG O2 Saturation 95 ABG Base Excess -3 VBG pH 7.37 VBG pCO2 35 L VBG pO2 34 VBG Base Excess -4 L Quality Measures Quality Measures none Assessment & Plan Assessment Current Active Medications: Generic Name Dose Route Start Last Admin Trade Name Freq PRN Reason Stop Dose Admin Acetaminophen 650 mg 10/19/24 18:14 Acetaminophen 325 Mg Tablet PO 11/18/24 18:13 Q6H PRN Fever >101.5 Al Hydrox/Mg Hydrox/Simethicone 30 ml 10/20/24 14:00 10/21/24 10:15 Mg Hyd/Al Hyd/Nando (Maalox Reg) Susp 30 Ml Udc PO 11/19/24 13:59 30 ml Q4HR RAD Administration Albuterol/Ipratropium 3 ml 10/19/24 18:14 Albuterol/Ipratropium (Duoneb) Rt [place]iel[place] 3 Ml Nebu INH 11/18/24 18:59 Q6HRRT PRN wheezing Dextrose 25 ml 10/19/24 17:17 Dextrose 50%-Water Inj 50 Ml Syringe IV 11/18/24 17:16 Q15MIN PRN BG 50-70 responsive npo pt Dextrose 50 ml 10/19/24 17:17 Dextrose 50%-Water Inj 50 Ml Syringe IV 11/18/24 17:16 Q15MIN PRN BG <50 OR BG <70 & pt unresponsive Glucagon 1 mg 10/19/24 17:17 Glucagon Inj 1 Mg Vial IM Q15MIN PRN BG <70, and no IV access Piperacillin/Tazobactam/Dextrose 3.375 gm in 50 mls @ 12.5 mls/hr 10/19/24 22:00 10/21/24 05:01 Zosyn IV 10/26/24 21:59 12.5 mls/hr Q8HR RAD Administration Octreotide Acetate 1,000 mcg/ 102 mls @ 5.1 mls/hr 10/19/24 20:00 10/20/24 16:30 Sodium Chloride IV 10/24/24 19:59 50 mcg/hr .Q20H RAD 5.1 mls/hr Administration Protocol 50 MCG/HR Sodium Chloride 1,000 mls @ 70 mls/hr 10/20/24 10:10 10/21/24 01:19 Ns IV 11/19/24 10:09 70 mls/hr .[id number] RAD Administration Pantoprazole Sodium 80 mg in 100 mls @ 10 mls/hr 10/20/24 11:34 10/21/24 05:01 Protonix/Ns 80mg Iv Premix IV 10/23/24 09:33 10 mls/hr Q10H RAD Administration Lidocaine 1 patch 10/20/24 13:29 10/21/24 07:53 Lidocaine 5% 1 Patch TOP 11/19/24 13:28 1 patch UD PRN Administration PAIN Protocol Morphine Sulfate 2 mg 10/20/24 13:29 Morphine Sulf Inj 10 Mg/Ml Vial IVP 10/25/24 13:28 Q4HR PRN Pain 7-10 or breakthrough Ondansetron HCl 4 mg 10/19/24 18:14 Ondansetron Inj 2 Mg/Ml Inj 2 Ml IV 11/18/24 18:13 Q6H PRN NAUSEA OR VOMITING Protocol Pharmacy Consult 1 each 10/19/24 23:01 Pharmacy Renal Dose Adjustment 1 Ea XX 11/18/24 23:00 PRN PRN CONSULT Sodium Chloride 3 ml 10/19/24 20:20 Sodium Chloride Rt [place] 0.9% 3 Ml Nebu INH 11/18/24 20:19 PRN PRN SOLN Sucralfate 1 gm 10/20/24 12:00 10/21/24 05:00 Sucralfate Susp 1 Gm/10 Ml Udc PO 11/19/24 11:59 1 gm QID RAD Administration Plan Assessment Nader is a 44 y/o male with PMHx hypertension, severe morbid obesity, chronic venous insufficiency, cellulitis, abscess, chronic lower back pain who is admitted for GI bleed and acute blood loss anemia. #Upper GI Bleed secondary to #Duodenal ulcer #Acute blood loss anemia #Symptomatic anemia #Gastritis DDx: GI Bleed, chronic anemia, medication induced Hgb 5.3 on presentation At this point with dark-colored stools, we believe this is a GI bleed, upper in nature Patient was recently discharged on a number of medicines including Celebrex and doxycycline Doxycycline side effect include possible esophagitis, and in combination with Celebrex could be the cause of bleeding at this time FOBT: Not done NSAID use: Celebrex Patient does not use blood thinners No history of varices, however patient will need additional medicines to control bleeding Pt will need iron studies outpatient as these iron studies may not be fully accurate with blood transfusions EGD 10/20/2024: Oozing duodenal ulcer treated with Epi Will need to monitor Hgb, continue drips as well Pt to get another PRBC after 4 PRBC and FFP given 10/21/2024: Peripheral blood smear shows severe normochromic anemia consistent with GI bleed Repeat H&H ordered for 10 AM showed hemoglobin 7.7 Patient is not having dark stools at this time, will order an H&H for 6 PM Will advance diet as well Plan: ? GI consulted, appreciate recs ? Trend CBC ? Transfusion protocol hemoglobin below 7 ? Avoiding any NSAIDs ? SCDs ? Continue Protonix drip ? Continue octreotide drip ? Follow-up with H&H at 1800 ? Clear liquid diet #Hypokalemia , resoslved 5.6 -> 5.8-> 4.5 Plan: ? Trend with CMP #Acute kidney injury, improving DDx: Prerenal versus ATN versus obstructive Most likely prerenal azotemia, BUN and Cr ~90s and 1.7 respectively FeNa: 1.7 -> Indeterminate Plan: ? NS 75 cc/hr ? Urine Lytes and Cr ? Avoid Nephrotoxic agents ? Renally dose medicines #Chronic venous insufficiency #Cellulitis Patient was recently discharged with bacteremia Patient was given antibiotics upon DC Last day of abx from d/c summary appears to be 10/22 BC no growth after 1 day, MRSA nares negative Plan: ? Continue Zosyn 3.375 mg IV every 8 hours ? Follow-up blood cultures ? Continue wound care #Elevated transaminases, improving Hepatitis panel unremarkable AST/ALT could be component of possible DARDEN Plan: ? Trend with CMP #Thrombocytopenia, resolved Plan: ? Trend with CBC #Morbid obesity Patient has been approved to see bariatric surgery in [place] Was recently prescribed Rybelsus TSH and Lipid panel normal, however, A1c is too high to be read, will need to be a send out per lab. Pending A1c read Plan: ? Outpatient workup #Chronic lower back pain Plan: ? Multimodal analgesia, including lidocaine patch, Tylenol and morphine breakthrough #Health Maintenance Disposition: Telemetry DVT prophylaxis: SCDs GI prophylaxis: Protonix and Octretide Drip Diet: Clear liquid CODE STATUS:Full Patient seen and care discussed with my attending physician, Dr. Rocha and my senior resident, Dr. Concha Richards, PGY-1 Attending Provider Attestation/Addendum I have examined the patient, reviewed labs and imaging findings, discussed the case with the resident(s), and reviewed entered orders. I agree with the plan of care as outlined in this note, with these additional summaries/recommendations: Patient seen at bedside. No acute overnight events. Patient reports his stool appears more brown today. Hemoglobin originally improved to 7.9 but unfortunately down to 7.1 this morning. We will repeat hemoglobin and hematocrit this afternoon and transfuse for hemoglobin less than 7. Continue to hold all chemical anticoagulation. S/P EGD that revealed normal esophagus, gastritis, oozing duodenal ulcer with a visible vessel with hemostasis achieved. Per gastroenterology, continue Protonix gtt., Maalox 30 mL p.o. every 4 hours, Carafate 1 g 4 times daily, and serial CBCs. We will advance diet to clear liquid and monitor how he tolerates. Patient's acute kidney injury improving. Continue IV fluids and avoid nephrotoxic agents. Repeat renal panel in AM. Patient is continued on IV Zosyn to complete treatment for patient's bacteremia that was diagnosed on previous admission. Leukocytosis improving. Repeat blood cxs show no growth at 24 hours. Patient updated on the plan and in agreement. All questions answered to satisfaction. Please see residents note for additional details of management. Dr. Josefina MD
[2024-10-21] MEDS: OCTREOTIDE ACET INJ 1,000 MCG in SODIUM CHLORIDE 0.9% 100 ML 5.1 MCG IV (12:28)
[2024-10-21] MEDS: SODIUM CHLORIDE 0.9% 1000 ML 1,000 ML 75 ML IV (13:09)
[2024-10-21 17:38] LABS: Hematocrit 23.8 % (41.0-53.0)
[2024-10-21 17:41] LABS: Hemoglobin 7.7 g/dL (13.5-16.0)
--- NOTE | 2024-10-21 19:13 | PD.IMPROG ---
Documentation for date of: 10/21/24 Subjective Subjective Interval history: Patient evaluated Hemoglobin hematocrit 7.7 and 23.8 No further bleeding Advance to clear liquid diet today And then advance to peptic ulcer disease diet tomorrow Exam Vital Signs Temp Pulse Resp BP Pulse Ox O2 Del Method O2 Flow Rate 96.8 F 74 18 144/99 H 100 Nasal Cannula 3 10/21/24 16:00 10/21/24 16:00 10/21/24 16:00 10/21/24 16:00 10/21/24 16:00 10/21/24 16:00 10/21/24 16:00 Objective Labs 10/21/24 17:20 10/21/24 05:42 Labs: Laboratory Results - last 24 hr 10/20/24 10/21/24 10/21/24 18:48 05:42 10:12 WBC 12.2 H D RBC 2.26 L Hgb 7.9 L 7.1 L 7.7 L Hct 23.8 L 21.6 L* 24.0 L MCV 96 MCH 31.4 MCHC 32.9 RDW Std Deviation 54.1 H Plt Count 346 D Neut % (Auto) 64 Lymph % (Auto) 19 [place] % (Auto) 7 Eos % (Auto) 1 Baso % (Auto) 1 Neut # (Auto) 7.8 H Lymph # (Auto) 2.4 [place] # (Auto) 0.9 H Eos # (Auto) 0.1 Baso # (Auto) 0.1 Immature Gran # (Auto) 0.99 H Absolute Nucleated RBC 0.17 H Immature Gran % 8 H Nucleated RBC % 1 H PT 12.1 INR 1.1 Sodium 144 Potassium 4.4 Chloride 109 H Carbon Dioxide 26.6 Anion Gap 8 BUN 48 H Creatinine 1.3 D Estim Creat Clear Calc 150.9 eGFR > 60 BUN/Creatinine Ratio 37 H Glucose 116 H Calculated Osmolality 300 H Calcium 8.3 Corrected Calcium 8.9 Phosphorus 3.2 Magnesium 2.1 Total Bilirubin 0.6 AST 21 ALT 50 H Alkaline Phosphatase 33 L Total Protein 6.2 Albumin 3.2 L Globulin 3.0 Albumin/Globulin Ratio 1.1 L 10/21/24 17:20 WBC RBC Hgb 7.7 L Hct 23.8 L MCV MCH MCHC RDW Std Deviation Plt Count Neut % (Auto) Lymph % (Auto) [place] % (Auto) Eos % (Auto) Baso % (Auto) Neut # (Auto) Lymph # (Auto) [place] # (Auto) Eos # (Auto) Baso # (Auto) Immature Gran # (Auto) Absolute Nucleated RBC Immature Gran % Nucleated RBC % PT INR Sodium Potassium Chloride Carbon Dioxide Anion Gap BUN Creatinine Estim Creat Clear Calc eGFR BUN/Creatinine Ratio Glucose Calculated Osmolality Calcium Corrected Calcium Phosphorus Magnesium Total Bilirubin AST ALT Alkaline Phosphatase Total Protein Albumin Globulin Albumin/Globulin Ratio Impressions Impression: Duodenal ulcer with visible blood vessel status post endoscopic intervention Hemoglobin staying stable Advance to clear liquid diet today Peptic ulcer disease diet tomorrow ABG Interpretation ABG results: 10/19/24 10/19/24 17:07 20:40 ABG pH 7.38 ABG pCO2 38 ABG pO2 73 L ABG HCO3 22 ABG O2 Saturation 95 ABG Base Excess -3 VBG pH 7.37 VBG pCO2 35 L VBG pO2 34 VBG Base Excess -4 L Assessment & Plan A&P Narrative Melena Acute posthemorrhagic anemia Sedation Plan IV Protonix Octreotide infusion at 50 mcg/h N.p.o. Blood transfusion to get the hemoglobin at least above 7 g IV fluids to bring the blood pressure up in the meantime consent obtained for fiberoptic esophagogastroduodenoscopy with possible biopsy possible therapeutic intervention under MAC as patient has a very high BMI Other medical problems include Essential hypertension morbid obesity Cellulitis Chronic venous insufficiency Low back pain Thank you very much for the opportunity to participate in the care of this patient Time Spent With Patient Time: Total time spent is greater than 50% in coordination of care (as documented) at patient's floor/unit and/or counseling patient:
[2024-10-22] VITALS (8 sets, daily range): BP systolic 147–159; BP diastolic 63–90; PULSE 69–87; RESP 17–22; TEMP 36.1–36.8; O2SAT 96–100; BMI 75.9
[2024-10-22] MEDS: MG HYD/AL HYD/SIME (Maalox Reg) SUSP 30 ML UDC PO ×6 (01:39→20:57)
[2024-10-22] MEDS: PANTOPRAZOLE/NS 80MG IV PREMIX 80 MG/100 ML BAG 10 MG IV ×3 (03:11→23:44)
[2024-10-22] MEDS: PIPER/TAZO 3.375 GM PREMIX 3.375 GM/50 ML BAG IV ×3 (05:14→20:57)
[2024-10-22] MEDS: SUCRALFATE SUSP 1 GM/10 ML UDC PO ×4 (05:14→20:57)
[2024-10-22 06:06] LABS: Basophils # (Auto) 0.1 Thou/mm3 (0.0-0.2); Basophils % (Auto) 1 % (0-2.5); Eosinophils # (Auto) 0.2 Thou/mm3 (0.0-0.5); Eosinophils % (Auto) 2 % (0-10); Hematocrit 23.6 % (41.0-53.0); Immature Granulocytes % (Auto) 5 % (0-0); Immature Granulocytes Auto 0.52 Thou/mm3 (0.00-0.00); Lymphocytes # (Auto) 1.9 Thou/mm3 (1.0-4.8); Lymphocytes % (Auto) 20 % (10-50); Mean Corpuscular HGB Conc 32.6 g/dl (31.0-37.0); Mean Corpuscular Hemoglobin 31.4 pg (25.0-35.0); Mean Corpuscular Volume 96 fL (80-100); Monocytes # (Auto) 0.7 Thou/mm3 (0.0-0.8); Monocytes % (Auto) 7 % (0-12); Neutrophils # (Auto) 6.3 Thou/mm3 (1.8-7.7); Neutrophils % (Auto) 66 % (37-80); Nucleated Red Blood Cell # 0.05 Thou/mm3 (0.00-0.00); Nucleated Red Blood Cell % 1 /100 WBC (0); Platelet Count 371 Thou/mm3 (140-440); RDW Standard Deviation 53.8 fL (35.1-43.9); Red Blood Count 2.45 Miln/mm3 (4.50-5.90); White Blood Count 9.6 Thou/mm3 (3.8-10.6)
[2024-10-22 06:09] LABS: INR 1.1 (0.9-1.3); Prothrombin Time 11.8 Seconds (9.0-12.2)
[2024-10-22 06:17] LABS: Hemoglobin 7.7 g/dL (13.5-16.0)
[2024-10-22 06:30] LABS: Alanine Aminotransferase 64 U/L (10-49); Albumin, Serum 3.3 gm/dL (3.5-5.0); Alkaline Phosphatase 36 U/L (46-116); Anion Gap 7 (7-16); Aspartate Amino Transferase 35 U/L (0-34); BUN/Creatinine Ratio 20 Ratio (12-20); Bilirubin,Total 0.6 mg/dL (0.3-1.2); Blood Urea Nitrogen 22 mg/dL (9-23); Calcium 8.3 mg/dL (8.3-10.6); Calcium (Corrected) 8.9 mg/dL (8.5-10.1); Carbon Dioxide 25.4 mMol/L (20.0-31.0); Chloride 107 mMol/L (98-107); Creatinine (Component) 1.1 mg/dL (0.6-1.3); Estimated Creatinine Clearance 180.6 mL/min (>60); Globulin 3.3 gm/dL (2.3-3.5); Glucose 114 mg/dL (74-106); Magnesium 2.1 mg/dL (1.6-2.6); Osmolality,Calculated 281 (275-295); Phosphorous 2.6 mg/dL (2.4-5.1); Potassium 4.2 mMol/L (3.4-5.1); Sodium 139 mMol/L (136-145); Total Protein 6.6 gm/dL (5.7-8.2); eGFR > 60 See Note
--- NOTE | 2024-10-22 07:22 | ESPR_ITS ---
Documentation for date of: 10/22/24 Subjective Subjective Interval history: Patient examined at bedside today. No acute overnight events. Patient reports that he is feeling much better. He also notes that his stools continue to be brown in color. He also is wondering when he is going to go home. He has not coughed up or thrown up blood. No other complaint at this time. Exam Vital Signs Temp Pulse Resp BP Pulse Ox O2 Del Method O2 Flow Rate 97.0 F 87 20 154/89 H 100 Nasal Cannula 3 10/22/24 04:00 10/22/24 06:49 10/22/24 06:49 10/22/24 04:00 10/22/24 06:49 10/22/24 04:00 10/22/24 04:00 Narrative Exam General: AAOx3, NAD, severely morbid obese, HEENT: Moist mucous membranes, conjunctiva clear, EOMI, PERRLA, skin tags present around neck, acanthosis nigricans present Cardiovascular: S1, S2, radial pulses +2 bilat, RRR, Pulmonary: Difficulty appreciating breath sounds for this patient, however appreciated some wheezing GI: No tenderness to light or deep palpitation, no guarding, rigidity, rebound tenderness or distension, abdomen is large Extremities: severe venous stasis in RLE, LLE present with dressing, no pitting edema, shoulder tattoo present Neuro: AAOx3, no focal motor or sensory deficits in the UE or LE bilat Psych: Cooperative Objective Labs 10/23/24 05:25 10/23/24 05:25 Labs: Laboratory Results - last 24 hr 10/21/24 10/21/24 10/22/24 10:12 17:20 04:58 WBC 9.6 RBC 2.45 L Hgb 7.7 L 7.7 L 7.7 L Hct 24.0 L 23.8 L 23.6 L MCV 96 MCH 31.4 MCHC 32.6 RDW Std Deviation 53.8 H Plt Count 371 Neut % (Auto) 66 Lymph % (Auto) 20 [place] % (Auto) 7 Eos % (Auto) 2 Baso % (Auto) 1 Neut # (Auto) 6.3 Lymph # (Auto) 1.9 [place] # (Auto) 0.7 Eos # (Auto) 0.2 Baso # (Auto) 0.1 Immature Gran # (Auto) 0.52 H Absolute Nucleated RBC 0.05 H Immature Gran % 5 H Nucleated RBC % 1 H PT 11.8 INR 1.1 Sodium 139 Potassium 4.2 Chloride 107 Carbon Dioxide 25.4 Anion Gap 7 BUN 22 Creatinine 1.1 Estim Creat Clear Calc 180.6 eGFR > 60 BUN/Creatinine Ratio 20 Glucose 114 H Calculated Osmolality 281 Calcium 8.3 Corrected Calcium 8.9 Phosphorus 2.6 Magnesium 2.1 Total Bilirubin 0.6 AST 35 H ALT 64 H Alkaline Phosphatase 36 L Total Protein 6.6 Albumin 3.3 L Globulin 3.3 Albumin/Globulin Ratio 1.0 L ABG Interpretation ABG results: 10/19/24 10/19/24 17:07 20:40 ABG pH 7.38 ABG pCO2 38 ABG pO2 73 L ABG HCO3 22 ABG O2 Saturation 95 ABG Base Excess -3 VBG pH 7.37 VBG pCO2 35 L VBG pO2 34 VBG Base Excess -4 L Quality Measures Quality Measures none Assessment & Plan Assessment Current Active Medications: Generic Name Dose Route Start Last Admin Trade Name Freq PRN Reason Stop Dose Admin Acetaminophen 650 mg 10/19/24 18:14 Acetaminophen 325 Mg Tablet PO 11/18/24 18:13 Q6H PRN Fever >101.5 Al Hydrox/Mg Hydrox/Simethicone 30 ml 10/20/24 14:00 10/22/24 05:14 Mg Hyd/Al Hyd/Nando (Maalox Reg) Susp 30 Ml Udc PO 11/19/24 13:59 30 ml Q4HR RAD Administration Albuterol/Ipratropium 3 ml 10/19/24 18:14 Albuterol/Ipratropium (Duoneb) Rt [place]iel[place] 3 Ml Nebu INH 11/18/24 18:59 Q6HRRT PRN wheezing Dextrose 25 ml 10/19/24 17:17 Dextrose 50%-Water Inj 50 Ml Syringe IV 11/18/24 17:16 Q15MIN PRN BG 50-70 responsive npo pt Dextrose 50 ml 10/19/24 17:17 Dextrose 50%-Water Inj 50 Ml Syringe IV 11/18/24 17:16 Q15MIN PRN BG <50 OR BG <70 & pt unresponsive Glucagon 1 mg 10/19/24 17:17 Glucagon Inj 1 Mg Vial IM Q15MIN PRN BG <70, and no IV access Piperacillin/Tazobactam/Dextrose 3.375 gm in 50 mls @ 12.5 mls/hr 10/19/24 22:00 10/22/24 05:14 Zosyn IV 10/26/24 21:59 12.5 mls/hr Q8HR RAD Administration Octreotide Acetate 1,000 mcg/ 102 mls @ 5.1 mls/hr 10/19/24 20:00 10/21/24 12:28 Sodium Chloride IV 10/24/24 19:59 50 mcg/hr .Q20H RAD 5.1 mls/hr Administration Protocol 50 MCG/HR Pantoprazole Sodium 80 mg in 100 mls @ 10 mls/hr 10/20/24 11:34 10/22/24 03:11 Protonix/Ns 80mg Iv Premix IV 10/23/24 09:33 10 mls/hr Q10H RAD Administration Lidocaine 1 patch 10/20/24 13:29 10/21/24 07:53 Lidocaine 5% 1 Patch TOP 11/19/24 13:28 1 patch UD PRN Administration PAIN Protocol Morphine Sulfate 2 mg 10/20/24 13:29 Morphine Sulf Inj 10 Mg/Ml Vial IVP 10/25/24 13:28 Q4HR PRN Pain 7-10 or breakthrough Ondansetron HCl 4 mg 10/19/24 18:14 Ondansetron Inj 2 Mg/Ml Inj 2 Ml IV 11/18/24 18:13 Q6H PRN NAUSEA OR VOMITING Protocol Pharmacy Consult 1 each 10/19/24 23:01 Pharmacy Renal Dose Adjustment 1 Ea XX 11/18/24 23:00 PRN PRN CONSULT Sodium Chloride 3 ml 10/19/24 20:20 Sodium Chloride Rt [place] 0.9% 3 Ml Nebu INH 11/18/24 20:19 PRN PRN SOLN Sucralfate 1 gm 10/20/24 12:00 10/22/24 05:14 Sucralfate Susp 1 Gm/10 Ml Udc PO 11/19/24 11:59 1 gm QID RAD Administration Plan Assessment Nader is a 44 y/o male with PMHx hypertension, severe morbid obesity, chronic venous insufficiency, cellulitis, abscess, chronic lower back pain who is admitted for GI bleed and acute blood loss anemia. #Upper GI Bleed secondary to #Duodenal ulcer #Acute blood loss anemia #Symptomatic anemia #Gastritis DDx: GI Bleed, chronic anemia, medication induced Hgb 5.3 on presentation At this point with dark-colored stools, we believe this is a GI bleed, upper in nature Patient was recently discharged on a number of medicines including Celebrex and doxycycline Doxycycline side effect include possible esophagitis, and in combination with Celebrex could be the cause of bleeding at this time FOBT: Not done NSAID use: Celebrex Patient does not use blood thinners No history of varices, however patient will need additional medicines to control bleeding Pt will need iron studies outpatient as these iron studies may not be fully accurate with blood transfusions EGD 10/20/2024: Oozing duodenal ulcer treated with Epi Will need to monitor Hgb, continue drips as well Pt to get another PRBC after 4 PRBC and FFP given 10/21/2024: Peripheral blood smear shows severe normochromic anemia consistent with GI bleed Repeat H&H ordered for 10 AM showed hemoglobin 7.7 Patient is not having dark stools at this time, will order an H&H for 6 PM Will advance diet as well 10/22/2024: Pt continues to improve, we will advance diet and continue drips Plan: ? GI consulted, appreciate recs ? Trend CBC ? Transfusion protocol hemoglobin below 7 ? Avoiding any NSAIDs ? SCDs ? Continue Protonix drip ? Continue Octreotide drip ? Peptic ulcer disease #Hypokalemia , resoslved 5.6 -> 5.8-> 4.5 Plan: ? Trend with CMP #Acute kidney injury, resolved DDx: Prerenal versus ATN versus obstructive Most likely prerenal azotemia, BUN and Cr ~90s and 1.7 respectively FeNa: 1.7 -> Indeterminate Plan: ? Avoid Nephrotoxic agents ? Renally dose medicines #Chronic venous insufficiency #Cellulitis Patient was recently discharged with bacteremia Patient was given antibiotics upon DC Last day of abx from d/c summary appears to be 10/22 BC no growth after 1 day, MRSA nares negative Plan: ? Continue Zosyn 3.375 mg IV every 8 hours ? Follow-up blood cultures ? Continue wound care #Elevated transaminases, improving Hepatitis panel unremarkable AST/ALT could be component of possible DARDEN Plan: ? Trend with CMP #Thrombocytopenia, resolved Plan: ? Trend with CBC #Morbid obesity Patient has been approved to see bariatric surgery in [place] Was recently prescribed Rybelsus TSH and Lipid panel normal, however, A1c is too high to be read, will need to be a send out per lab. Pending A1c read Plan: ? Outpatient workup #Chronic lower back pain Plan: ? Multimodal analgesia, including lidocaine patch, Tylenol and morphine breakthrough #Health Maintenance Disposition: Telemetry DVT prophylaxis: SCDs GI prophylaxis: Protonix and Octretide Drip Diet: Peptic Ulcer Disease CODE STATUS:Full Patient seen and care discussed with my attending physician, Dr. Josefina Richards, PGY-1 Attending Provider Attestation/Addendum I have examined the patient, reviewed labs and imaging findings, discussed the case with the resident(s), and reviewed entered orders. I agree with the plan of care as outlined in this note, with these additional summaries/recommendations: Patient seen at bedside. No acute overnight events. Patient reports his stool appears more brown today. Hemoglobin originally improved to 7.9 but unfortunately down to 7.1 this morning. We will repeat hemoglobin and hematocrit this afternoon and transfuse for hemoglobin less than 7. Continue to hold all chemical anticoagulation. S/P EGD that revealed normal esophagus, gastritis, oozing duodenal ulcer with a visible vessel with hemostasis achieved. Per gastroenterology, continue Protonix gtt., Maalox 30 mL p.o. every 4 hours, Carafate 1 g 4 times daily, and serial CBCs. We will advance diet to clear liquid and monitor how he tolerates. Patient's acute kidney injury improving. Continue IV fluids and avoid nephrotoxic agents. Repeat renal panel in AM. Patient is continued on IV Zosyn to complete treatment for patient's bacteremia that was diagnosed on previous admission. Leukocytosis improving. Repeat blood cxs show no growth at 24 hours. Patient updated on the plan and in agreement. All questions answered to satisfaction. Please see residents note for additional details of management. Dr. Josefina MD
[2024-10-22] MEDS: OCTREOTIDE ACET INJ 1,000 MCG in SODIUM CHLORIDE 0.9% 100 ML 5.1 MCG IV (08:16)
--- NOTE | 2024-10-22 16:35 | PC.NURSE ---
[facility]24 from 0900 to 1615 >.
[2024-10-22 17:46] LABS: Collection Type, Urine Catheter; Squamous Epithelial Cell,Urine 0 /hpf (0-5)
[2024-10-22 18:01] LABS: Bilirubin,Urine Negative (Negative); Blood,Urine 2+ (Negative); Clarity,Urine Turbid (Clear/Hazy); Glucose, Urine Negative (Negative); Ketones,Urine Negative (Negative); Leukocyte Esterase,Urine Negative (Negative); Nitrite,Urine Negative (Negative); Protein,Urine 1+ (Neg - Trace); RBC,Urine 61 /hpf (0-3); Specific Gravity,Urine 1.025 (1.001-1.035); Uric Acid Crystals,Urine 3+; Urobilinogen,Urine Negative mg/dL (0.0-1.0); WBC,Urine 2 /hpf (0-5)
[2024-10-22 18:02] LABS: Color,Urine Yellow (Lt Yel-Yel)
--- NOTE | 2024-10-22 21:16 | PD.IMPROG ---
Documentation for date of: 10/22/24 Subjective Subjective Interval history: Patient evaluated No further bleeding hemoglobin 7.7 hematocrit 23.6 Exam Vital Signs Temp Pulse Resp BP Pulse Ox O2 Del Method O2 Flow Rate 97.5 F 71 19 159/90 H 96 Nasal Cannula 3 10/22/24 16:00 10/22/24 16:00 10/22/24 16:00 10/22/24 16:00 10/22/24 16:00 10/22/24 16:00 10/22/24 16:00 Objective Labs 10/22/24 04:58 10/22/24 04:58 Labs: Laboratory Results - last 24 hr 10/22/24 10/22/24 04:58 17:22 WBC 9.6 RBC 2.45 L Hgb 7.7 L Hct 23.6 L MCV 96 MCH 31.4 MCHC 32.6 RDW Std Deviation 53.8 H Plt Count 371 Neut % (Auto) 66 Lymph % (Auto) 20 [facility] % (Auto) 7 Eos % (Auto) 2 Baso % (Auto) 1 Neut # (Auto) 6.3 Lymph # (Auto) 1.9 [facility] # (Auto) 0.7 Eos # (Auto) 0.2 Baso # (Auto) 0.1 Immature Gran # (Auto) 0.52 H Absolute Nucleated RBC 0.05 H Immature Gran % 5 H Nucleated RBC % 1 H PT 11.8 INR 1.1 Sodium 139 Potassium 4.2 Chloride 107 Carbon Dioxide 25.4 Anion Gap 7 BUN 22 Creatinine 1.1 Estim Creat Clear Calc 180.6 eGFR > 60 BUN/Creatinine Ratio 20 Glucose 114 H Calculated Osmolality 281 Calcium 8.3 Corrected Calcium 8.9 Phosphorus 2.6 Magnesium 2.1 Total Bilirubin 0.6 AST 35 H ALT 64 H Alkaline Phosphatase 36 L Total Protein 6.6 Albumin 3.3 L Globulin 3.3 Albumin/Globulin Ratio 1.0 L Ur Collection Type Catheter Urine Color Yellow Urine Clarity Turbid A Urine pH 6.0 Ur Specific [place] 1.025 Urine Protein 1+ A Urine Glucose (UA) Negative Urine Ketones Negative Urine Blood 2+ A Urine Nitrite Negative Urine Bilirubin Negative Urine Urobilinogen (Auto) Negative Ur Leukocyte Esterase Negative Urine RBC 61 H Urine WBC 2 Ur Squamous Epith Cells 0 Uric Acid Crystals 3+ A Urine Bacteria None Impressions Impression: Duodenal bulb ulcer Status post endoscopic intervention doing well Continue advance diet as tolerated ABG Interpretation ABG results: 10/19/24 10/19/24 17:07 20:40 ABG pH 7.38 ABG pCO2 38 ABG pO2 73 L ABG HCO3 22 ABG O2 Saturation 95 ABG Base Excess -3 VBG pH 7.37 VBG pCO2 35 L VBG pO2 34 VBG Base Excess -4 L Assessment & Plan A&P Narrative Melena Acute posthemorrhagic anemia Sedation Plan IV Protonix Octreotide infusion at 50 mcg/h N.p.o. Blood transfusion to get the hemoglobin at least above 7 g IV fluids to bring the blood pressure up in the meantime consent obtained for fiberoptic esophagogastroduodenoscopy with possible biopsy possible therapeutic intervention under MAC as patient has a very high BMI Other medical problems include Essential hypertension morbid obesity Cellulitis Chronic venous insufficiency Low back pain Thank you very much for the opportunity to participate in the care of this patient Time Spent With Patient Time: Total time spent is greater than 50% in coordination of care (as documented) at patient's floor/unit and/or counseling patient:
[2024-10-23] VITALS: BP 149/64; PULSE 70; PULSE 72; RESP 20; TEMP 36.8; O2SAT 96
[2024-10-23 00:38] LABS: Hematocrit 23.1 % (41.0-53.0)
[2024-10-23 00:39] LABS: Hemoglobin 7.7 g/dL (13.5-16.0)
[2024-10-23 04:00] VITALS: BP 143/60; PULSE 72; PULSE 74; RESP 18; TEMP 36.7; O2SAT 96
[2024-10-23] MEDS: PIPER/TAZO 3.375 GM PREMIX 3.375 GM/50 ML BAG IV (05:27)
[2024-10-23] MEDS: SUCRALFATE SUSP 1 GM/10 ML UDC PO (05:27)
[2024-10-23] MEDS: MG HYD/AL HYD/SIME (Maalox Reg) SUSP 30 ML UDC PO ×2 (05:27→09:27)
[2024-10-23] MEDS: OCTREOTIDE ACET INJ 1,000 MCG in SODIUM CHLORIDE 0.9% 100 ML 5.1 MCG IV (05:29)
[2024-10-23 05:58] LABS: Basophils # (Auto) 0.1 Thou/mm3 (0.0-0.2); Basophils % (Auto) 1 % (0-2.5); Eosinophils # (Auto) 0.2 Thou/mm3 (0.0-0.5); Eosinophils % (Auto) 2 % (0-10); Hematocrit 24.4 % (41.0-53.0); Immature Granulocytes % (Auto) 4 % (0-0); Immature Granulocytes Auto 0.34 Thou/mm3 (0.00-0.00); Lymphocytes # (Auto) 1.7 Thou/mm3 (1.0-4.8); Lymphocytes % (Auto) 18 % (10-50); Mean Corpuscular HGB Conc 32.4 g/dl (31.0-37.0); Mean Corpuscular Hemoglobin 31.5 pg (25.0-35.0); Mean Corpuscular Volume 97 fL (80-100); Monocytes # (Auto) 0.5 Thou/mm3 (0.0-0.8); Monocytes % (Auto) 6 % (0-12); Neutrophils # (Auto) 6.6 Thou/mm3 (1.8-7.7); Neutrophils % (Auto) 71 % (37-80); Nucleated Red Blood Cell # 0.03 Thou/mm3 (0.00-0.00); Nucleated Red Blood Cell % 0 /100 WBC (0); Platelet Count 380 Thou/mm3 (140-440); RDW Standard Deviation 54.1 fL (35.1-43.9); Red Blood Count 2.51 Miln/mm3 (4.50-5.90); White Blood Count 9.3 Thou/mm3 (3.8-10.6)
[2024-10-23 06:00] VITALS: BMI 75.9
[2024-10-23 06:28] LABS: Hemoglobin 7.9 g/dL (13.5-16.0)
[2024-10-23 06:33] LABS: Alanine Aminotransferase 69 U/L (10-49); Albumin, Serum 3.4 gm/dL (3.5-5.0); Alkaline Phosphatase 40 U/L (46-116); Anion Gap 7 (7-16); Aspartate Amino Transferase 36 U/L (0-34); BUN/Creatinine Ratio 15 Ratio (12-20); Bilirubin,Total 0.5 mg/dL (0.3-1.2); Blood Urea Nitrogen 16 mg/dL (9-23); Calcium 8.1 mg/dL (8.3-10.6); Calcium (Corrected) 8.6 mg/dL (8.5-10.1); Carbon Dioxide 27.5 mMol/L (20.0-31.0); Chloride 105 mMol/L (98-107); Creatinine (Component) 1.1 mg/dL (0.6-1.3); Estimated Creatinine Clearance 180.6 mL/min (>60); Globulin 3.3 gm/dL (2.3-3.5); Glucose 156 mg/dL (74-106); Osmolality,Calculated 281 (275-295); Phosphorous 2.1 mg/dL (2.4-5.1); Sodium 139 mMol/L (136-145); Total Protein 6.7 gm/dL (5.7-8.2); eGFR > 60 See Note
[2024-10-23 07:20] VITALS: PULSE 77; RESP 16; RESP 98; O2SAT 98
[2024-10-23 07:56] VITALS: BP 140/93; PULSE 60; RESP 17; TEMP 36.2; O2SAT 97
[2024-10-23 08:00] VITALS: PULSE 76
--- NOTE | 2024-10-23 09:18 | PD.IMPROG ---
Documentation for date of: 10/23/24 Subjective Subjective Interval history: Case discussed with internal medicine team Hemoglobin hematocrit 7.4 and 24.4 Exam Vital Signs Temp Pulse Resp BP Pulse Ox O2 Del Method O2 Flow Rate 97.2 F 60 17 140/93 H 97 Room Air 3 10/23/24 07:56 10/23/24 07:56 10/23/24 07:56 10/23/24 07:56 10/23/24 07:56 10/23/24 07:56 10/22/24 16:00 Objective Labs 10/23/24 05:25 10/23/24 05:25 Labs: Laboratory Results - last 24 hr 10/22/24 10/23/24 10/23/24 17:22 00:14 05:25 WBC 9.3 RBC 2.51 L Hgb 7.7 L 7.9 L Hct 23.1 L 24.4 L MCV 97 MCH 31.5 MCHC 32.4 RDW Std Deviation 54.1 H Plt Count 380 Neut % (Auto) 71 Lymph % (Auto) 18 [place] % (Auto) 6 Eos % (Auto) 2 Baso % (Auto) 1 Neut # (Auto) 6.6 Lymph # (Auto) 1.7 [place] # (Auto) 0.5 Eos # (Auto) 0.2 Baso # (Auto) 0.1 Immature Gran # (Auto) 0.34 H Absolute Nucleated RBC 0.03 H Immature Gran % 4 H Nucleated RBC % 0 Sodium 139 Potassium 4.0 Chloride 105 Carbon Dioxide 27.5 Anion Gap 7 BUN 16 Creatinine 1.1 Estim Creat Clear Calc 180.6 eGFR > 60 BUN/Creatinine Ratio 15 Glucose 156 H Calculated Osmolality 281 Calcium 8.1 L Corrected Calcium 8.6 Phosphorus 2.1 L Magnesium 2.0 Total Bilirubin 0.5 AST 36 H ALT 69 H Alkaline Phosphatase 40 L Total Protein 6.7 Albumin 3.4 L Globulin 3.3 Albumin/Globulin Ratio 1.0 L Ur Collection Type Catheter Urine Color Yellow Urine Clarity Turbid A Urine pH 6.0 Ur Specific [place] 1.025 Urine Protein 1+ A Urine Glucose (UA) Negative Urine Ketones Negative Urine Blood 2+ A Urine Nitrite Negative Urine Bilirubin Negative Urine Urobilinogen (Auto) Negative Ur Leukocyte Esterase Negative Urine RBC 61 H Urine WBC 2 Ur Squamous Epith Cells 0 Uric Acid Crystals 3+ A Urine Bacteria None Impressions Impression: Duodenal ulcer with a visible blood vessel requiring endoscopic intervention doing well Okay to discharge patient home on PPI twice daily avoid NSAIDs ABG Interpretation ABG results: 10/19/24 10/19/24 17:07 20:40 ABG pH 7.38 ABG pCO2 38 ABG pO2 73 L ABG HCO3 22 ABG O2 Saturation 95 ABG Base Excess -3 VBG pH 7.37 VBG pCO2 35 L VBG pO2 34 VBG Base Excess -4 L Assessment & Plan A&P Narrative Melena Acute posthemorrhagic anemia Sedation Plan IV Protonix Octreotide infusion at 50 mcg/h N.p.o. Blood transfusion to get the hemoglobin at least above 7 g IV fluids to bring the blood pressure up in the meantime consent obtained for fiberoptic esophagogastroduodenoscopy with possible biopsy possible therapeutic intervention under MAC as patient has a very high BMI Other medical problems include Essential hypertension morbid obesity Cellulitis Chronic venous insufficiency Low back pain Thank you very much for the opportunity to participate in the care of this patient Time Spent With Patient Time: Total time spent is greater than 50% in coordination of care (as documented) at patient's floor/unit and/or counseling patient:
[2024-10-23] MEDS: NAPH,KPH MBDB 1 PACKET (1.5 GM) PO (09:27)
--- NOTE | 2024-10-23 09:44 | ESDS_ITS ---
Planned Discharge Date 10/23/24 DS: Providers Provider Date of admission: 10/19/24 18:12 Primary care physician: Júnior Hudson PA-C Admitting Provider: Chris Rocha MD Attending Provider on Admission: Chris Rocha MD Consults: 10/19/24 16:55 Consult to Gastroenterology Stat Comment: Consulting Provider: Allie Smith 10/19/24 21:26 Consult to Nephrology Stat Comment: Consulting Provider: Lucrecia Russo Attending Provider on DC: Yessica Kern MD Discharging Provider: Yessica Kern MD DS: Diagnosis Problem List Completed Was Problem List Reviewed/Reconciled?: Yes Hospital Course Hospital Course Hospital course: A 34-year-old male patient with past medical history of severe morbid obesity, hypertension, chronic venous insufficiency, cellulitis, lower limb abscess, chronic low back pain, was brought to the ED due to dark tarry stool associated with generalized weakness fatigue and headache. Patient reported that since he was discharged from the hospital 3 weeks before admission he started to have black tarry stool. On evaluation in the ED patient was found to have blood pressure of 110/65, heart rate of 98, hemoglobin level was 5.2, leukocytes of 24, platelets of 545, with no coagulopathy. During evaluation at the ED patient blood pressure dropped to 84/48, patient was resuscitated with 50 L of IV fluids patient received 5 units of blood during his stay in the hospital and 1 fresh frozen plasma and 1 unit of platelets. Patient was put on octreotide drip and pantoprazole drip EGD was done by Dr. Smith and showed oozing duodenal ulcer with a visible vessel, was coagulated. Dr. Smith cleared the patient to be discharged on omeprazole 40 mg p.o. twice daily. No biopsy was taken due to the bleeding. During his stay patient was also continued on IV antibiotics for his bacteremia and cellulitis that was diagnosed during his last admission. Today his hemoglobin is stable at 7.9. And patient clinically stable to be discharged and was given the following instructions: Follow up with your PCP within one week from discharge Stop antibiotics and celecoxib Avoid in NSAID such as Ibuprofen..etc Avoid drinking alcohol or spicy food Use omperazol 40mg BID for one month Follow up with your GI specialist for elevated liver markers Discharging diagnosis #Bleeding duodenal ulcer #Acute blood loss anemia #Gastritis #Morbid obesity #Hypokalemia #MARCO #Chronic venous insufficiency #Cellulitis #Elevated liver enzymes #Chronic low back pain #Thrombocytopenia - Patient's plan and care discussed with my attending, Dr. Josefina Kern MD Internal Medicine PGY-2 Time Spent with Patient Time attestation: Total time spent providing and/or coordinating discharge services: Time spent: Greater than 30 minutes Exam Vital Signs Temp Pulse Resp BP Pulse Ox O2 Del Method O2 Flow Rate 97.2 F 60 17 140/93 H 97 Room Air 3 10/23/24 07:56 10/23/24 07:56 10/23/24 07:56 10/23/24 07:56 10/23/24 07:56 10/23/24 07:56 10/22/24 16:00 Narrative Exam GEN: AOx3, morbidly obese, able to speak full sentences HEENT: NC/AC, PERRLA, oral mucosa moist, neck supple CVS: RRR, S1-S2 present, no murmurs appreciated RESP: CTAB GI: soft,non distended, non tender, NBS MSK: Bilateral lower extremity skin discoloration, no signs of acute infection. SKIN: warm and dry SPECIAL EVENTS MANAGER: CN II-XII and Sensation grossly intact. Discharge Plan Plan Patient Disposition: HOME (Self Care) Patient condition on transfer: Stable and Benefits outweigh risks Care Plan Goals: Follow up with your PCP within one week from discharge Stop antibiotics and celecoxib Avoid in NSAID such as Ibuprofen..etc Avoid drinking alcohol or spicy food Use omperazol 40mg BID for one month Follow up with your GI specialist for elevated liver markers Prescriptions/Referrals Prescriptions/Med Rec: New omeprazole 40 mg capsule,delayed release(DR/EC) 40 mg PO BID 30 Days Qty: 60 0RF Continued furosemide 40 mg tablet 40 mg PO QDAY lisinopril-hydrochlorothiazide 20-25 mg tablet 1 mg PO QDAY acetaminophen 500 mg tablet 500 mg PO BID metoprolol succinate 100 mg tablet extended release 24 hr 100 mg PO DAILY Rybelsus 3 mg tablet 3 mg PO QDAY 30 Days Qty: 30 1RF Discontinued doxycycline monohydrate 100 mg capsule 100 mg PO BID 14 Days Qty: 28 0RF amoxicillin-pot clavulanate 500-125 mg tablet 1 tab PO BID 14 Days Qty: 28 0RF celecoxib [Celebrex] 100 mg capsule 100 mg PO BID PRN (Reason: pain) Qty: 30 0RF Referrals: Júnior Hudson PA-C [Primary Care Provider] - Patient/Caregiver Discharge Instructions Discharge Activity: activity as tolerated Education Materials: Upper GI Endoscopy Print Language: Latvian Stand Alone Forms: Sarai Award Info., Patient Portal Info Letter Discharge Order Discharge Orders: Discharge (Routine); Ordered 10/23/24 Ordered By: Yessica Kern Quality Discharge Quality Measures VTE prophylaxis (Contraindicated) MD Attestestation MD Attestation I have examined the patient, reviewed labs and imaging findings, discussed the case with the resident(s), and reviewed entered orders. I agree with the plan of care as outlined in this note. Time Spent: [address] Josefina MD
== END 2024-10-23 11:32 | disposition home or self-care (01) | DRG 377 ==
LOC: SERX 17:10 → SERHOLD 18:26 → S2NX 19:36
PROVIDERS: Nurse Practitioner Family; Specialist; Student in an Organized Health Care Education/Training Program; Admitting Provider Student in an Organized Health Care Education/Training Program; Emergency Provider Emergency Medicine; PCP Physician Assistant; Visit Provider Student in an Organized Health Care Education/Training Program
PROC: 0DJ08ZZ Inspection of Upper Intestinal Tract, Via Natural or Artificial Opening Endoscopic (ICD-10-PCS; CPT 43239; principal; 2024-10-20 15:00)
DX: K26.4 Chronic or unspecified duodenal ulcer with hemorrhage (principal); N17.0 Acute kidney failure with tubular necrosis; D62 Acute posthemorrhagic anemia; Z68.45 Body mass index [BMI] 70 or greater, adult; L03.90 Cellulitis, unspecified; E87.20 Acidosis, unspecified; K29.71 Gastritis, unspecified, with bleeding; E66.01 Morbid (severe) obesity due to excess calories; I87.2 Venous insufficiency (chronic) (peripheral); R74.01 Elevation of levels of liver transaminase levels; D69.6 Thrombocytopenia, unspecified; E87.5 Hyperkalemia; I11.0 Hypertensive heart disease with heart failure; I50.9 Heart failure, unspecified; E87.6 Hypokalemia; G89.29 Other chronic pain; Z87.891 Personal history of nicotine dependence
CPT/HCPCS: 36415; 36430; 36600; 71045; 76770; 80048; 80053; 80061; 80069; 80074; 80307; 81001; 82436; 82570; 82728; 82803; 83036; 83540; 83550; 83605; 83735; 83880; 84100; 84132; 84133; 84145; 84300; 84484; 85014; 85018; 85025; 85610; 85730; 86850; 86900; 86901; 86923; 86927; 86965; 87040; 87081; 93005; 94644; 96361; 96365; 99291; A4217; A4649; J0171; J0612; J1815; J1938; J2354; J2470; J2543; J3490; J7030; J7050; J7120; P9016; P9035; P9060; A9270; J7609

== ENCOUNTER → 2024-10-19 | Outpatient (CLI) | payer OTHER, MEDICAID, SELFPAY | END | disposition home or self-care (01) | LOC: SWHD 12:32 | PROVIDERS: Visit Provider Student in an Organized Health Care Education/Training Program | DX: E11.621 Type 2 diabetes mellitus with foot ulcer (principal); L97.422 Non-pressure chronic ulcer of left heel and midfoot with fat layer exposed; I10 Essential (primary) hypertension; E66.01 Morbid (severe) obesity due to excess calories; Z71.3 Dietary counseling and surveillance; I11.0 Hypertensive heart disease with heart failure | CPT/HCPCS: 17250; 99213; G0463 ==

== ENCOUNTER → 2024-10-26 | Outpatient (CLI) | payer OTHER, MEDICAID, SELFPAY | END | disposition home or self-care (01) | LOC: SWHD 13:31 | PROVIDERS: PCP Physician Assistant; Referring Provider Physician Assistant; Visit Provider Student in an Organized Health Care Education/Training Program | DX: E11.621 Type 2 diabetes mellitus with foot ulcer (principal); L97.422 Non-pressure chronic ulcer of left heel and midfoot with fat layer exposed; I10 Essential (primary) hypertension; E66.01 Morbid (severe) obesity due to excess calories; I11.0 Hypertensive heart disease with heart failure; Z71.3 Dietary counseling and surveillance | CPT/HCPCS: 29581 ==

== ENCOUNTER → 2024-11-02 | Outpatient (CLI) | payer OTHER, MEDICAID, SELFPAY | END | disposition home or self-care (01) | LOC: SWHD 13:40 | PROVIDERS: PCP Physician Assistant; Referring Provider Physician Assistant; Visit Provider Student in an Organized Health Care Education/Training Program | DX: E11.621 Type 2 diabetes mellitus with foot ulcer (principal); L97.822 Non-pressure chronic ulcer of other part of left lower leg with fat layer exposed; I10 Essential (primary) hypertension; E66.01 Morbid (severe) obesity due to excess calories; I11.0 Hypertensive heart disease with heart failure; Z71.3 Dietary counseling and surveillance; L90.5 Scar conditions and fibrosis of skin | CPT/HCPCS: 99212; G0463 ==

== ENCOUNTER → 2024-11-10 | Outpatient (CLI) | payer OTHER, MEDICAID, SELFPAY ==
--- NOTE | 2024-11-10 14:30 | XR_ITS ---
Examination: Abdomen sonogram, complete Date and time of exam: November 10, 2024 1412 hours INDICATIONS: Fatty liver diagnosis. Technique: Multiple real-time grayscale transabdominal sonographic images of the abdomen have been obtained. Findings: Negative for gallstones Gallbladder wall 0.35 cm no edema Common bile duct 0.4 cm Pancreatic head 3.9 cm Aorta obscured by bowel gas Liver 23.4 cm fatty infiltration Normal hepatopedal portal venous flow Patent IVC Right kidney 11.1 cm renal cortex 2.2 cm Left kidney 11.6 cm cortex 2.3 cm Spleen 12.1 cm IMPRESSION: Negative for cholelithiasis Borderline thickening gallbladder wall but no edema, clinical correlation advised Prominent pancreatic head 3.9 cm, consider CT scan abdomen pelvis post intravenous contrast follow-up
== END | disposition home or self-care (01) ==
PROVIDERS: PCP Physician Assistant; Referring Provider Physician Assistant; Visit Provider Physician Assistant
DX: K82.8 Other specified diseases of gallbladder (principal); K86.89 Other specified diseases of pancreas
CPT/HCPCS: 76700

== ENCOUNTER 2025-05-01 06:20 | Day surgery (SDC) | payer BC, MEDICAID, SELFPAY ==
--- NOTE | 2025-04-27 08:00 | EKG_ITS ---
[facility] Test Date: 2025-04-27 Pat Name: AVTAR LEBLANC Department: Room: - Gender: Male Transport Coordinator: BOB : 1980 Requested By: Leno Cuevas Order Number: [id number] Reading MD: Leno Cuevas Measurements Intervals [place] Rate: 51 P: 45 AR: 176 QRS: 22 QRSD: 97 T: 73 QT: 413 QTc: 383 Interpretive Statements SINUS BRADYCARDIA WITH OCCASIONAL SUPRAVENTRICULAR PREMATURE COMPLEXES LOW QRS VOLTAGE IN PRECORDIAL LEADS [QRS DEFLECTION < 1.0 mV IN CHEST LEADS] Compared to ECG 10/19/2024 22:49:50 Low QRS voltage now present Sinus tachycardia no longer present /store/S0/[id number]
[2025-04-27 10:10] LABS: Alanine Aminotransferase 29 U/L (10-49); Albumin, Serum 4.4 gm/dL (3.5-5.0); Albumin/Globulin Ratio 1.6 (1.2-2.2); Alkaline Phosphatase 70 U/L (46-116); Anion Gap 7 (7-16); Aspartate Amino Transferase 25 U/L (0-34); BUN/Creatinine Ratio 20 Ratio (12-20); Bilirubin,Total 0.5 mg/dL (0.3-1.2); Blood Urea Nitrogen 16 mg/dL (9-23); Calcium 9.3 mg/dL (8.3-10.6); Calcium (Corrected) 9.3 mg/dL (8.5-10.1); Carbon Dioxide 31.1 mMol/L (20.0-31.0); Chloride 103 mMol/L (98-107); Creatinine (Component) 0.8 mg/dL (0.6-1.3); Globulin 2.8 gm/dL (2.3-3.5); Glucose 95 mg/dL (74-106); Osmolality,Calculated 282 (275-295); Potassium 4.3 mMol/L (3.4-5.1); Sodium 141 mMol/L (136-145); Total Protein 7.2 gm/dL (5.7-8.2); eGFR > 60 See Note
[2025-04-30 13:47] VITALS: BMI 70.6
[2025-05-01] VITALS (8 sets, daily range): BP systolic 129–202; BP diastolic 68–95; PULSE 60–77; RESP 15–22; TEMP 36.6–36.7; O2SAT 94–100; BMI 71.7
[2025-05-01] MEDS: RINGERS LACTATED 1000 ML 1,000 ML 125 ML IV (07:25)
== END 2025-05-01 08:54 | disposition home or self-care (01) ==
PROVIDERS: Anesthesiology; PCP Physician Assistant; Referring Provider Surgery; Visit Provider Surgery
PROC: 0DJD8ZZ Inspection of Lower Intestinal Tract, Via Natural or Artificial Opening Endoscopic (ICD-10-PCS; CPT 45378; principal; 2025-05-01 07:30)
DX: D12.8 Benign neoplasm of rectum (principal); K62.89 Other specified diseases of anus and rectum; K64.1 Second degree hemorrhoids; K64.4 Residual hemorrhoidal skin tags; K57.30 Diverticulosis of large intestine without perforation or abscess without bleeding; K62.5 Hemorrhage of anus and rectum; Z01.810 Encounter for preprocedural cardiovascular examination; K21.9 Gastro-esophageal reflux disease without esophagitis; I10 Essential (primary) hypertension; Z79.899 Other long term (current) drug therapy
CPT/HCPCS: 45380; 36415; 80053; 93005; A4649; J7120